=== PATIENT | female | born 1970 | race Caucasian/White ===

== ENCOUNTER 2017-04-14 09:35 | Inpatient (IN) ==
[2017-04-14] MEDS ORDERED: DILAUDID ONE (18:24)
[2017-04-14] MEDS: NICODERM PATCH TD SCH (18:29)
[2017-04-14 19:42] LABS: MANUAL DIFF NEEDED? NO
[2017-04-14 19:45] LABS: BASO% 0.3 % (0.0-0.8); EOS# 0.05 X1000 (0.0-0.7); EOS% 1.3 % (0.0-10.0); HEMATOCRIT 40.5 % (37.0-47.0); HEMOGLOBIN 13.4 g/dL (12.0-16.0); LYMPH# 0.64 X1000 (1.2-3.4); LYMPH% 16.6 % (20.5-51.1); MCH 29.9 PG (27-31); MCHC 33.1 g/dL (33-37); MCV 90.4 FL (81-99); MONO# 0.44 X1000 (0.11-0.59); MONO% 11.4 % (1.7-9.3); MPV 10.6 FL (7.4-10.4); NEUT% 70.4 % (42.2-75.2); PLT 124 X1000 (130-400); RBC 4.48 XMIL (4.2-5.4)
[2017-04-14 19:53] LABS: INR 0.98; PROTIME 10.3 Seconds (9.2-11.7); PTT 28.7 Seconds (22.0-36.0)
[2017-04-14 20:10] LABS: AGAP 12; ALBUMIN 3.6 g/dL (3.5-5.0); ALKALINE PHOSPHATASE 54 U/L (32-104); BUN 14 mg/dL (8-22); CALCIUM 7.8 mg/dL (8.8-10.2); CHLORIDE 107 mmol/L (98-107); COSMO 280; GOT 18 U/L (10-30); GPT 11 U/L (10-36); POTASSIUM 3.4 mmol/L (3.5-5.1); SODIUM 141 mmol/L (136-145); TCO2 22 mmol/L (25-35); TOTAL BILIRUBIN 0.18 mg/dL (0.20-1.00); TOTAL PROTEIN 6.2 g/dL (6.3-8.3)
[2017-04-14] MEDS ORDERED: ZOFRAN IV PRN (20:33)
[2017-04-14] MEDS ORDERED: PROTONIX IV SCH (21:00)
[2017-04-14] MEDS ORDERED: SODIUM CHLORIDE 0.9% INJ SCH (21:00)
[2017-04-14] MEDS ORDERED: KLOR-CON PO ONE (21:27)
[2017-04-14] MEDS ORDERED: DUONEB (A & A) INH PRN (21:30)
[2017-04-14] MEDS: NS 1,000 ML IV SCH (22:04)
[2017-04-14] MEDS: DILAUDID IV PRN (22:17)
[2017-04-14] MEDS: LYRICA PO SCH (22:17)
[2017-04-14] MEDS: SUBOXONE 2 MG/0.5 MG SL SCH (22:17)
[2017-04-14] MEDS: XANAX PO PRN (22:44)
[2017-04-14] MEDS: PROTONIX 80 MG in NS 80 ML IV SCH (22:44)
[2017-04-15] MEDS: DILAUDID IV PRN ×3 (05:20→20:26)
[2017-04-15 06:30] LABS: MANUAL DIFF NEEDED? NO
[2017-04-15 06:32] LABS: BASO% 0.2 % (0.0-0.8); EOS# 0.05 X1000 (0.0-0.7); EOS% 1.1 % (0.0-10.0); HEMATOCRIT 42.3 % (37.0-47.0); HEMOGLOBIN 13.9 g/dL (12.0-16.0); LYMPH# 0.61 X1000 (1.2-3.4); LYMPH% 13.9 % (20.5-51.1); MCH 29.6 PG (27-31); MCHC 32.9 g/dL (33-37); MCV 90.2 FL (81-99); MONO# 0.54 X1000 (0.11-0.59); MONO% 12.3 % (1.7-9.3); MPV 10.7 FL (7.4-10.4); NEUT% 72.5 % (42.2-75.2); PLT 116 X1000 (130-400); RBC 4.69 XMIL (4.2-5.4)
[2017-04-15 08:05] LABS: AGAP 14; BUN 8 mg/dL (8-22); CALCIUM 8.4 mg/dL (8.8-10.2); CHLORIDE 107 mmol/L (98-107); COSMO 277; MAGNESIUM 1.6 mg/dL (1.5-2.7); POTASSIUM 4.3 mmol/L (3.5-5.1); SODIUM 140 mmol/L (136-145); TCO2 19 mmol/L (25-35)
[2017-04-15] MEDS ORDERED: DIPRIVAN 1% ONE (08:57)
[2017-04-15] MEDS ORDERED: ROBINUL ONE (08:58)
[2017-04-15] MEDS ORDERED: XYLOCAINE-MPF 2% ONE (08:58)
[2017-04-15] MEDS: NICODERM PATCH TD SCH (10:18)
[2017-04-15] MEDS: SUBOXONE 2 MG/0.5 MG SL SCH ×2 (10:18→20:26)
[2017-04-15] MEDS: LYRICA PO SCH ×2 (10:19→20:26)
[2017-04-15] MEDS: MARINOL PO SCH (10:19)
[2017-04-15] MEDS: XANAX PO PRN ×2 (11:33→20:26)
[2017-04-15] MEDS: PROTONIX 80 MG in NS 80 ML IV SCH ×3 (12:44→21:12)
[2017-04-15] MEDS: NS 1,000 ML IV SCH (13:00)
[2017-04-15] MEDS: PATIENT'S OWN MED PO SCH (18:27)
[2017-04-16] MEDS: NS 1,000 ML IV SCH (02:29)
[2017-04-16] MEDS: DILAUDID IV PRN ×3 (04:38→08:57)
[2017-04-16 06:50] LABS: MANUAL DIFF NEEDED? NO
[2017-04-16 06:57] LABS: BASO% 0.2 % (0.0-0.8); EOS# 0.05 X1000 (0.0-0.7); EOS% 1.2 % (0.0-10.0); HEMATOCRIT 40.3 % (37.0-47.0); HEMOGLOBIN 13.1 g/dL (12.0-16.0); LYMPH# 0.74 X1000 (1.2-3.4); LYMPH% 17.7 % (20.5-51.1); MCH 29.4 PG (27-31); MCHC 32.5 g/dL (33-37); MCV 90.4 FL (81-99); MONO# 0.61 X1000 (0.11-0.59); MONO% 14.6 % (1.7-9.3); MPV 10.8 FL (7.4-10.4); NEUT% 66.3 % (42.2-75.2); PLT 113 X1000 (130-400); RBC 4.46 XMIL (4.2-5.4)
[2017-04-16 07:16] LABS: AGAP 11; BUN 7 mg/dL (8-22); CALCIUM 8.1 mg/dL (8.8-10.2); CHLORIDE 107 mmol/L (98-107); COSMO 277; SODIUM 140 mmol/L (136-145); TCO2 22 mmol/L (25-35)
[2017-04-16 07:29] VITALS: BP 109/73
[2017-04-16] MEDS ORDERED: NORCO-7.5 PO PRN (07:58)
[2017-04-16] MEDS: MARINOL PO SCH (08:57)
[2017-04-16] MEDS: LYRICA PO SCH (08:58)
[2017-04-16] MEDS: NICODERM PATCH TD SCH (08:58)
[2017-04-16] MEDS: PROTONIX 80 MG in NS 80 ML IV SCH (09:04)
[2017-04-16] MEDS: PATIENT'S OWN MED PO SCH (09:04)
[2017-04-16] MEDS: XANAX PO PRN (09:05)
[2017-04-16] MEDS ORDERED: PERCOCET-5 PO PRN (11:45)
[2017-04-16] MEDS ORDERED: XANAX PO SCH (21:00)
== END 2017-04-16 14:25 | disposition home or self-care (01) ==
LOC: DIRADM 09:35 → 3N 17:43
PROVIDERS: ATTEND Internal Medicine

== ENCOUNTER 2018-09-03 15:04 | Inpatient (IN) ==
[2018-09-03] MEDS ORDERED: NORCO-10 PO PRN (18:12)
[2018-09-03] MEDS ORDERED: ZOFRAN IV PRN ×2 (18:13)
[2018-09-03] MEDS ORDERED: NS 1,000 ML IV ONE (18:13)
[2018-09-03] MEDS: DURAGESIC 50 MICROGM/HR PATCH TD SCH (18:47)
[2018-09-03] MEDS ORDERED: PERCOCET-10 PO PRN (18:54)
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
[2018-09-03 19:05] LABS: BASO# 0.03 X1000 (0.0-0.2); BASO% 0.2 % (0.0-0.8); EOS# 0.23 X1000 (0.0-0.7); EOS% 1.5 % (0.0-10.0); HEMATOCRIT 40.6 % (37.0-47.0); HEMOGLOBIN 13.1 g/dL (12.0-16.0); IMM GRAN# 0.06 X1000 (0.0-0.04); IMM GRAN% 0.4 % (0.0-0.5); LYMPH# 1.35 X1000 (1.2-3.4); LYMPH% 8.9 % (20.5-51.1); MCH 28.9 PG (27-31); MCHC 32.3 g/dL (33-37); MCV 89.6 FL (81-99); MONO% 9.3 % (1.7-9.3); MPV 9.4 FL (7.4-10.4); NEUT# 12.05 X1000 (1.4-6.5); NEUT% 79.7 % (42.2-75.2); PLT 245 X1000 (130-400); RBC 4.53 XMIL (4.2-5.4); WBC 15.12 X1000 (4.8-10.8)
[2018-09-03 19:09] LABS: ALB/GLOB RATIO 1.1; ALBUMIN 3.5 g/dL (3.5-5.0); CALCIUM 8.1 mg/dL (8.8-10.2); CREATININE 1.4 mg/dL (0.5-0.9); MAGNESIUM 1.8 mg/dL (1.5-2.7); PHOSPHORUS 3.9 mg/dL (2.7-4.5); TOTAL BILIRUBIN 0.23 mg/dL (0.20-1.00); TOTAL PROTEIN 6.7 g/dL (6.3-8.3)
[2018-09-03 21:18] LABS: INR 0.99; PROTIME 13.8 Seconds (11.0-16.0)
[2018-09-03 21:35] LABS: FREE T4 0.98 ng/dL (0.93-1.70)
[2018-09-03 21:45] LABS: TSH 7.77 uIUmL (0.27-4.20)
[2018-09-03] MEDS: LYRICA PO SCH (22:22)
[2018-09-04] MEDS: PERCOCET-10 PO PRN ×5 (02:41→22:54)
[2018-09-04 06:01] LABS: URINE SOURCE CLEAN CATCH
[2018-09-04 06:09] LABS: BILIRUBIN URINE NEGATIVE (NEGATIVE); BLOOD URINE NEGATIVE (NEGATIVE); COLOR YELLOW; GLUCOSE URINE NEGATIVE (NEGATIVE); KETONE URINE NEGATIVE (NEGATIVE); LEUKOCYTES URINE MODERATE (NEGATIVE); NITRITE URINE NEGATIVE (NEGATIVE); PROTEIN URINE 100 mg/dL (NEGATIVE); SP GRAVITY URINE 1.016; TURBIDITY URINE CLEAR (CLEAR); UR EPITHELIAL CELLS <10 /HPF (<10); URINE BACTERIA NEGATIVE /HPF; URINE RBC <10 /HPF (<10); URINE WBC TNTC /HPF (<10); UROBILINOGEN URINE NORMAL (NORMAL)
[2018-09-04 06:31] LABS: PROTEIN CREAT RATIO 0.9; UR CREAT RANDOM 134.7 mg/dL (11-20); UR PROT RANDOM 115.5 mg/dL
[2018-09-04] MEDS: PROTONIX PO SCH (06:35)
[2018-09-04 07:36] LABS: BASO# 0.05 X1000 (0.0-0.2); BASO% 0.2 % (0.0-0.8); EOS# 0.36 X1000 (0.0-0.7); EOS% 1.7 % (0.0-10.0); HEMATOCRIT 38.2 % (37.0-47.0); HEMOGLOBIN 12.3 g/dL (12.0-16.0); IMM GRAN# 0.12 X1000 (0.0-0.04); IMM GRAN% 0.6 % (0.0-0.5); LYMPH# 2.31 X1000 (1.2-3.4); LYMPH% 10.9 % (20.5-51.1); MCHC 32.2 g/dL (33-37); MCV 90.1 FL (81-99); MONO# 2.36 X1000 (0.11-0.59); MONO% 11.1 % (1.7-9.3); MPV 9.3 FL (7.4-10.4); NEUT# 16.02 X1000 (1.4-6.5); NEUT% 75.5 % (42.2-75.2); PLT 254 X1000 (130-400); RBC 4.24 XMIL (4.2-5.4); WBC 21.22 X1000 (4.8-10.8)
[2018-09-04 07:51] LABS: ALB/GLOB RATIO 1.4; ALBUMIN 3.6 g/dL (3.5-5.0); CALCIUM 7.5 mg/dL (8.8-10.2); CREATININE 1.4 mg/dL (0.5-0.9); TOTAL BILIRUBIN 0.19 mg/dL (0.20-1.00); TOTAL PROTEIN 6.2 g/dL (6.3-8.3)
[2018-09-04 08:06] LABS: BANDS 4 % (0-1); LYMPHS 8 % (21-51); MONO 8 % (1-9); SEGS 76 % (42-75)
[2018-09-04] MEDS: LYRICA PO SCH ×2 (08:18→22:09)
[2018-09-04] MEDS: NICODERM PATCH TD SCH (08:19)
[2018-09-04 08:44] LABS: ALLEN TEST NO; BE -16.2 mmoll (-3.0-3.0); BLOOD TYPE ARTERIAL; HCO3-(ACT) 12.3 mmoll (20.0-26.0); METHB 1.2 % (0.0-1.5); O2(CT) 15.9 mL/dL (15.0-23.0); O2HB 95.3 % (95.0-99.0); PCO2(98.6) 29 mmHg (35-45); PO2(98.6) 95 mmHg (60-100); SAMPLE BLOOD; SAO2 98.2 % (95.0-100.0); THB 11.8 g/dL (11.5-17.4)
[2018-09-04 08:45] LABS: MODALITY ROOM AIR
--- NOTE | 2018-09-04 08:50 | Diag Imaging Result Doc PS360 ---
EXAM: CHEST-2 VIEWS - 09/04/2018 HISTORY: dyspnea TECHNIQUE: Chest two views COMPARISON: 08/23/2018 FINDINGS: Heart size is normal. There are mild COPD/emphysematous changes. There are symmetrical nipple shadow artifacts over the lung bases on the PA view which are stable. There is no acute consolidation, vascular congestion, pleural effusion, or pneumothorax identified. IMPRESSION: Mild COPD/emphysematous changes. No acute changes. Electronically signed by Rex Dacosta 09/04/2018 8:48 AM
[2018-09-04 08:51] LABS: pH(98.6) 7.18 (7.35-7.45)
[2018-09-04] MEDS ORDERED: SODIUM BICARBONATE 8.4% IV ONE (10:15)
[2018-09-04] MEDS ORDERED: 1/2 NS 1,000 ML IV SCH (10:30)
[2018-09-04] MEDS ORDERED: NS 1,000 ML IV SCH (11:15)
[2018-09-04] MEDS: SODIUM BICARBONATE 8.4% 150 MEQ in D5W 1,000 ML IV SCH (13:34)
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
[2018-09-04] MEDS: ZYVOX 600 MG/D5W 600 MG/300 ML IVPB IV SCH (18:36)
[2018-09-04] MEDS: DURAGESIC 50 MICROGM/HR PATCH TD SCH (18:53)
[2018-09-04] MEDS ORDERED: SODIUM BICARBONATE PO SCH (21:00)
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
[2018-09-05] MEDS: PERCOCET-10 PO PRN ×5 (03:07→21:36)
[2018-09-05] MEDS: PROTONIX PO SCH ×2 (03:16→08:01)
[2018-09-05 05:06] LABS: ALLEN TEST YES; BE -8.5 mmoll (-3.0-3.0); BLOOD TYPE ARTERIAL; HCO3-(ACT) 18.2 mmoll (20.0-26.0); METHB 1.2 % (0.0-1.5); O2(CT) 16.3 mL/dL (15.0-23.0); PCO2(98.6) 36 mmHg (35-45); PO2(98.6) 90 mmHg (60-100); SAMPLE BLOOD; SAO2 97.9 % (95.0-100.0); THB 12.1 g/dL (11.5-17.4); pH(98.6) 7.29 (7.35-7.45)
[2018-09-05 05:07] LABS: MODALITY ROOM AIR
[2018-09-05] MEDS: SODIUM BICARBONATE 8.4% 150 MEQ in D5W 1,000 ML IV SCH (06:21)
[2018-09-05 07:19] LABS: BASO# 0.02 X1000 (0.0-0.2); BASO% 0.1 % (0.0-0.8); EOS% 0.7 % (0.0-10.0); HEMATOCRIT 33.4 % (37.0-47.0); HEMOGLOBIN 10.9 g/dL (12.0-16.0); IMM GRAN# 0.04 X1000 (0.0-0.04); IMM GRAN% 0.3 % (0.0-0.5); LYMPH# 0.85 X1000 (1.2-3.4); LYMPH% 5.7 % (20.5-51.1); MCH 28.4 PG (27-31); MCHC 32.6 g/dL (33-37); MONO# 1.35 X1000 (0.11-0.59); MONO% 9.1 % (1.7-9.3); MPV 9.5 FL (7.4-10.4); NEUT# 12.49 X1000 (1.4-6.5); NEUT% 84.1 % (42.2-75.2); PLT 197 X1000 (130-400); RBC 3.84 XMIL (4.2-5.4); RDW 14.6 % (11.5-14.5); WBC 14.85 X1000 (4.8-10.8)
[2018-09-05 07:45] LABS: AGAP 13; ALB/GLOB RATIO 1.1; ALBUMIN 3.3 g/dL (3.5-5.0); ALKALINE PHOSPHATASE 69 U/L (32-104); BUN 16 mg/dL (8-22); C REACTIVE PROT QUANT 3.88 mg/L (0.00-5.00); CALCIUM 7.8 mg/dL (8.8-10.2); CHLORIDE 105 mmol/L (98-107); COSMO 275; CREATININE 1.2 mg/dL (0.5-0.9); ESTIMATED GFR 48; GLUCOSE 91 mg/dL (70-104); GOT 17 U/L (10-30); GPT 15 U/L (10-36); POTASSIUM 3.3 mmol/L (3.5-5.1); SODIUM 137 mmol/L (136-145); TCO2 19 mmol/L (25-35); TOTAL BILIRUBIN < 0.15 mg/dL (0.20-1.00); TOTAL PROTEIN 6.2 g/dL (6.3-8.3)
[2018-09-05] MEDS: NICODERM PATCH TD SCH (08:19)
[2018-09-05] MEDS: ZYVOX 600 MG/D5W 600 MG/300 ML IVPB IV SCH ×2 (08:19→18:23)
[2018-09-05] MEDS: LYRICA PO SCH ×2 (08:19→21:35)
[2018-09-05] MEDS ORDERED: MAGNESIUM SULFATE 2 GM/S.W.I. 2 GM/50 ML IVPB IV ONE (12:45)
[2018-09-05] MEDS ORDERED: KLOR-CON PO ONE (12:46)
--- NOTE | 2018-09-05 13:27 | Diag Imaging Result Doc PS360 ---
EXAM: BA SWALLOW W/VIDEO SPEECH THER 09/05/2018 HISTORY: Odynophagia, n/v TECHNIQUE: 104 images 19 mGy, 26 seconds fluoroscopy time. COMMENT: The patient was able to swallow barium with a single swallow demonstrating premature contraction of the cricopharyngeus. There is no evidence of aspiration. IMPRESSION: Episodic cricopharyngeal achalasia. Electronically signed by Filemon Robert 09/05/2018 1:24 PM
[2018-09-05] MEDS ORDERED: MORPHINE IV ONE (14:18)
[2018-09-05] MEDS: POTASSIUM CHLORIDE 40 MEQ in NS 1,000 ML IV SCH (14:33)
--- NOTE | 2018-09-05 14:45 | PROGRESS NOTE ---
DATE: 09/05/2018 SUBJECTIVE: Patient still complains of episodes of nausea and vomiting. She has had diarrhea. She has had a modified barium swallow for complaints of dysphagia/odynophagia. Findings showed episodic cricopharyngeal achalasia with no evidence of aspiration. Patient's main complaint at present time is right flank pain. OBJECTIVE: Vital signs: Temperature 98.3 degrees, pulse 100, respirations 20, and blood pressure 138/93. General: The patient is awake, alert in no acute distress. Abdomen: Soft with tenderness on palpation. Slight firmness noted to the abdomen. LABORATORY: Hematology: WBC 14.85, hemoglobin 10.9, hematocrit 33.4, MCV 87 and platelets 197,000. Chemistry: Sodium 137, potassium 3.3, chloride 105, CO2 19, BUN 16 creatinine 1.2, glucose 91, total bilirubin less than 0.15, AST 17, ALT 15, alkaline phosphatase 69. C-reactive protein 3.88. ASSESSMENT AND PLAN: 1. Nausea and vomiting. 2. Diarrhea. 3. Dysphagia/odynophagia with barium swallow showing episodic cricopharyngeal achalasia. 4. History of carcinoid tumor. 5. Abdominal pain. PLAN: Continue proton pump inhibitor. Follow anti-reflux measures. Patient's stool was negative for C. difficile toxin. I will discuss this case with Dr. Escalante, and further plans will be made as needed. Dictated by LEE ANN Vásquez for Braeden Escalante MD cc: LEE ANN Crockett MD
[2018-09-05] MEDS: MYLICON PO PRN ×2 (16:34→21:35)
[2018-09-05] MEDS: MERREM 1 GM in NS 50 ML IV SCH (17:39)
--- NOTE | 2018-09-05 17:51 | PROGRESS NOTE ---
DATE: 09/05/2018 SUBJECTIVE: This patient is still feeling weak, but she looks better compared with yesterday. She is oriented x3. She is still having diarrhea, but it is better. Gastroenterology Department on board. I have placed this patient on a bicarbonate drip because of her severe acidosis. She is still acidotic, and the bicarbonate is better, increased from 8 to 11 and now it is 19. I will continue for now with the same management. Tomorrow we will re-evaluate this patient. OBJECTIVE: Vital Signs: Temperature 98.3 degrees, pulse 95, respiratory rate 20, blood pressure 127/80, oxygen saturation 100% on room air. HEENT: Head normocephalic. No trauma. PERRLA. Neck: Supple. No JVD. No masses. Central trachea. Chest: Clear to auscultation. No wheezing. No rales. Abdomen: Soft. Mild generalized tenderness to palpation. Her abdomen is a little bit firm, but nondistended. Extremities: No edema. No clubbing. No cyanosis. Neurological: The patient is alert and oriented x3. She does have generalized weakness. DIAGNOSTIC DATA: WBC 14.8, hemoglobin 10.9, hematocrit 33.4, platelets 197, 000. Sodium 137, potassium 3.3, chloride 105, bicarbonate 19, BUN 16, creatinine 1.2, glucose 91. Magnesium 1.4. Albumin 3.3. ASSESSMENT AND PLAN: 1. Anion gap metabolic acidosis. Her pH was low at 7.18 and low bicarbonate. Now this looks much better. I will continue with the bicarbonate drip, and tomorrow, I will re-evaluate this patient again. Likely, the acidosis is due to her severe chronic diarrhea, which in turn will decrease the potassium level. 2. Leukocytosis. WBC is better compared with yesterday, decreased from 21 to 14. I do have a gram-negative wayne in the urine and a coagulase-negative Staphylococcus in blood so I will continue with linezolid and I will add meropenem to her medications. 3. History of carcinoid tumor with liver involvement. Dr. Miller has been consulted. We will continue controlling her pain. She still has diarrhea. 4. Severe diarrhea. This is likely the cause of her acidosis. She feels a little bit better today. Gastroenterology on board. 5. Dysphagia status post a modified barium swallow. Impression: I will wait for Gastroenterology's recommendations. 6. Hypomagnesemia. I will replace the magnesium. 7. Urinary tract infection with a positive culture that showed gram-negative wayne. I have started this patient on meropenem. She is allergic to penicillins. 8. Normocytic anemia. For now, will monitor. 9. Hypokalemia. I will replace the potassium. 10. Acute kidney injury. This is getting better. Creatinine decreased from 1.4 to 1.2. BUN is getting better also. We will continue with IV fluids. cc: Vikas Flores MD MTDD
[2018-09-06] MEDS: MERREM 1 GM in NS 50 ML IV SCH ×3 (00:46→17:06)
[2018-09-06] MEDS: PERCOCET-10 PO PRN ×6 (01:36→21:50)
[2018-09-06] MEDS: SODIUM BICARBONATE 8.4% 150 MEQ in D5W 1,000 ML IV SCH ×2 (01:37→17:51)
[2018-09-06 05:00] LABS: ALLEN TEST YES; BE -4.7 mmoll (-3.0-3.0); BLOOD TYPE ARTERIAL; HCO3-(ACT) 21.2 mmoll (20.0-26.0); METHB 1.6 % (0.0-1.5); O2(CT) 14.1 mL/dL (15.0-23.0); O2HB 94.6 % (95.0-99.0); PCO2(98.6) 41 mmHg (35-45); PO2(98.6) 85 mmHg (60-100); SAMPLE BLOOD; SAO2 97.6 % (95.0-100.0); THB 10.5 g/dL (11.5-17.4); pH(98.6) 7.32 (7.35-7.45)
[2018-09-06 05:01] LABS: MODALITY ROOM AIR
[2018-09-06] MEDS: MYLICON PO PRN ×2 (05:54→13:37)
[2018-09-06] MEDS: ZYVOX 600 MG/D5W 600 MG/300 ML IVPB IV SCH ×2 (05:56→17:52)
[2018-09-06] MEDS: PROTONIX PO SCH (06:02)
[2018-09-06 07:27] LABS: BASO# 0.01 X1000 (0.0-0.2); BASO% 0.1 % (0.0-0.8); EOS# 0.14 X1000 (0.0-0.7); EOS% 1.1 % (0.0-10.0); HEMATOCRIT 34.2 % (37.0-47.0); HEMOGLOBIN 11.1 g/dL (12.0-16.0); IMM GRAN# 0.04 X1000 (0.0-0.04); IMM GRAN% 0.3 % (0.0-0.5); LYMPH# 0.81 X1000 (1.2-3.4); LYMPH% 6.5 % (20.5-51.1); MCH 28.7 PG (27-31); MCHC 32.5 g/dL (33-37); MCV 88.4 FL (81-99); MONO# 1.24 X1000 (0.11-0.59); MONO% 9.9 % (1.7-9.3); MPV 10.5 FL (7.4-10.4); NEUT# 10.26 X1000 (1.4-6.5); NEUT% 82.1 % (42.2-75.2); PLT 166 X1000 (130-400); RBC 3.87 XMIL (4.2-5.4); RDW 14.5 % (11.5-14.5)
[2018-09-06 07:33] LABS: AGAP 12; ALBUMIN 3.1 g/dL (3.5-5.0); ALKALINE PHOSPHATASE 76 U/L (32-104); BUN 15 mg/dL (8-22); CALCIUM 7.9 mg/dL (8.8-10.2); CHLORIDE 105 mmol/L (98-107); COSMO 278; CREATININE 1.1 mg/dL (0.5-0.9); ESTIMATED GFR 53; GLUCOSE 151 mg/dL (70-104); GOT 13 U/L (10-30); GPT 13 U/L (10-36); POTASSIUM 3.1 mmol/L (3.5-5.1); SODIUM 137 mmol/L (136-145); TCO2 20 mmol/L (25-35); TOTAL BILIRUBIN < 0.15 mg/dL (0.20-1.00); TOTAL PROTEIN 6.2 g/dL (6.3-8.3)
[2018-09-06] MEDS: NICODERM PATCH TD SCH (09:39)
[2018-09-06] MEDS: LYRICA PO SCH ×2 (09:39→20:31)
--- NOTE | 2018-09-06 15:10 | PROGRESS NOTE ---
DATE: 09/06/2018 SUBJECTIVE: Ms. Bolivar was admitted on 09/03/2018. She is followed by Dr. Anson Miller. Complained of abdominal and throat pains. A 48-year-old female with a known history of metastatic carcinoid tumor with liver involvement, followed by Dr. Anson Miller. She went to [facility] with 3 days of right upper quadrant abdominal pain and feeling fullness in her throat when she swallows. She started to having some nausea and vomiting and chronic diarrhea. Denied any fever. No chills. She has had a bit of worsening of cough over the past 2 or 3 weeks. Cough described as wet. CT of the abdomen was done at [facility]. She feels much better, sitting up in her bed and eating some breakfast. OBJECTIVE: Temperature is 97.9, pulse 100, respirations 20, blood pressure 105/69. Pupils are equal and round. Lungs are clear in all lung rendon. Cardiovascular: Regular rate and rhythm without murmur or S3. Abdomen is soft. Skin is warm and dry. Urine output is 2800 mL. ASSESSMENT AND PLAN: 1. Increased anion gap metabolic acidosis. The pH was 7.18 and low bicarbonate, looks much better, and she is on a bicarbonate drip. Likely acidosis due to severe chronic diarrhea which also decreased her potassium level. 2. Leukocytosis. White blood cell count is better. Decreased from 21,000 to 1400. Gram-negative wayne growing in the urine. Coagulase negative staphylococcus in the blood. We will continue linezolid and meropenem. 3. Carcinoid tumor with liver involvement. Dr. Miller is consulted. Continue controlling pain. 4. Severe diarrhea, likely cause of acidosis. Feels a little better today. 5. Dysphagia. Status post modified barium swallow. Impression is episodic achalasia. GI is following. 6. Hypomagnesemia. Replace magnesium. 7. Urinary tract infection with positive culture that showed gram-negative wayne. The patient is on meropenem. She is allergic to penicillins. 8. Normocytic anemia. 9. Hypokalemia. Supplement her potassium. 10.Acute kidney injury. We will continue to follow. cc: Claudio Jones MD
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
[2018-09-06] MEDS: POTASSIUM CHLORIDE 40 MEQ in NS 1,000 ML IV SCH (17:51)
[2018-09-06] MEDS: DURAGESIC 50 MICROGM/HR PATCH TD SCH (17:52)
--- NOTE | 2018-09-06 18:08 | PROGRESS NOTE ---
DATE: 09/06/2018 SUBJECTIVE: Patient is more awake today. She states she is feeling some better. She has not had any vomiting today. She has tolerated her diet so far today. She had a barium swallow on 09/05/2018 that showed episodic cricopharyngeal achalasia. There was no evidence of aspiration. Patient has been seen by oncology who has followed her for her metastatic carcinoid tumor. OBJECTIVE: Vital Signs: Temperature 98.3 degrees, pulse 96, blood pressure 124/72. General: Patient is awake, alert, in no acute distress. Abdomen: Softer today. Positive bowel sounds. Nontender. LABORATORY: Hematology. WBC 12.50, hemoglobin 11.1, hematocrit 34.2, MCV 88.4. Chemistry. Sodium 137, potassium 3.1, chloride 105, CO2 of 20, BUN 15, creatinine 1.1, glucose 151. ASSESSMENT AND PLAN: 1. Leukocytosis on antibiotics. 2. Dysphagia. Barium swallow showed episodic achalasia. Continue PPI. Will discuss possible EGD and possible dilation as an out patient. Recommend she follow up with us as an outpatient. 3. 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 Following with Dr. Miller. Continue current management. 4. Urinary tract infection on antibiotics. 5. We will continue to follow and further plans will be made according to her progress. Her symptoms seemed to have improved some today. Recommend to continue PPI. Will follow up with her as an outpatient. She may require EGD with possible dilation. I have discussed this case with Dr. Escalante. Dictated by LEE ANN Vásquez for Braeden Escalante MD cc: LEE ANN Crockett MD
[2018-09-07] MEDS: MERREM 1 GM in NS 50 ML IV SCH ×3 (01:47→17:33)
[2018-09-07] MEDS: PERCOCET-10 PO PRN ×6 (01:47→22:55)
[2018-09-07] MEDS: PROTONIX PO SCH (06:05)
[2018-09-07] MEDS: ZYVOX 600 MG/D5W 600 MG/300 ML IVPB IV SCH ×2 (06:05→17:37)
[2018-09-07] MEDS ORDERED: NS 500 ML ONE (08:13)
[2018-09-07] MEDS: LYRICA PO SCH ×2 (09:00→20:53)
[2018-09-07] MEDS: MYLICON PO PRN ×2 (10:42→18:49)
[2018-09-07] MEDS: NICODERM PATCH TD SCH (10:43)
[2018-09-07] MEDS: DURAGESIC 50 MICROGM/HR PATCH TD SCH (12:06)
[2018-09-07] MEDS: SODIUM BICARBONATE 8.4% 150 MEQ in D5W 1,000 ML IV SCH (13:41)
[2018-09-07] MEDS: POTASSIUM CHLORIDE 40 MEQ in NS 1,000 ML IV SCH (13:47)
--- NOTE | 2018-09-07 14:01 | PROGRESS NOTE ---
DATE: 09/07/2018 SUBJECTIVE: Patient was currently having an IV restarted at the time of my visit. She states she has had some abdominal pain today. No reported vomiting. OBJECTIVE: Vital Signs: Temperature 98.1 degrees, pulse 99, respirations 16, blood pressure 151/85. General: Patient was awake, alert, in no acute distress. She was having an IV restarted. LABORATORY: Hematology: WBC 12.50, hemoglobin 11.1, hematocrit 34.2, MCV 88.4 , platelet 166. Chemistry: Sodium 137, potassium 3.1, chloride 105, CO2 20. BUN 15, creatinine 1.1,, glucose 151. Total bilirubin less than 0.15, AST 13, ALT 13, alkaline phosphatase 76. ASSESSMENT: 1. Leukocytosis, improving. Continue antibiotics. 2. 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 Miller. I believe they have ordered an octreotide scan. 3. Diarrhea, which seems to have improved. 4. Dysphagia. Patient had modified barium swallow that showed episodic achalasia. Continue proton pump inhibitor. Recommend she follow up with us at the office, and she may need esophagogastroduodenoscopy with possible dilation. 5. Urinary tract infection on antibiotics. PLAN: Continue current management. Continue current medications. Continue PPI and follow strict anti-reflux measures. Recommend she follow up with us as an outpatient, and she may need EGD with possible dilation. Further plans to be made according to her progress. I have discussed this case with Dr. Escalante. Dictated by LEE ANN Vásquez for Braeden Escalante MD cc: LEE ANN Crockett MD [facility]
--- NOTE | 2018-09-07 16:31 | PROGRESS NOTE ---
DATE: 09/07/2018 SUBJECTIVE: Ms. Bolivar states she feels pretty good today. They did notify me that they found another 1 of her pain patches that had appeared to be taken off. I think this is the second or third time this has happened this hospitalization. She reports that she is comfortable though at this time. She is eating a little better. OBJECTIVE: Vital signs: Temperature 98.1 degrees, pulse 99, respirations 16, blood pressure 151/85. HEENT: Pupils are equal and round. Lungs: Clear in all lung rendon. Cardiovascular: Regular rhythm and rate without murmur or S3. Abdomen: Soft. Skin: Warm and dry. Urine output 3200 to 3300 mL. ASSESSMENT AND PLAN: 1. Leukocytosis, improving. Continue antibiotics. 2. 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 Followed by Dr. Miller. I believe they have ordered an octreotide scan. 3. Diarrhea which is improving. 4. Dysphagia. The patient had a modified barium swallow that showed episodic achalasia. Continue proton pump inhibitors. Encourage her to chew her food up well. Encourage p.o. intake. Recommend she get follow up in the office. May need an EGD and possible dilatation as an outpatient. 5. Urinary tract infection. Continue current antibiotics. Urine grew out E. coli which is sensitive to everything. 6. Review of her orders. She is on D5 water with bicarbonate 150 mL that is running at 75 mL. She is on a fentanyl patch which is 50 mcg to 72 hours. Getting meropenem 1 g q.8 hours, nicotine patch 21 mg a day, oxycodone 10 mg q.4 hours p.r.n., Protonix 40 mg a day, Lyrica 300 mg b.i.d., simethicone chewable 80 mg p.o. 4 times a day p.r.n., linezolid 600 mg IV q.12. Continue present treatment. cc: Claudio Jones MD
[2018-09-08] MEDS: SODIUM BICARBONATE 8.4% 150 MEQ in D5W 1,000 ML IV SCH ×2 (00:58→18:23)
[2018-09-08] MEDS: MERREM 1 GM in NS 50 ML IV SCH ×4 (02:00→23:53)
[2018-09-08] MEDS: PERCOCET-10 PO PRN ×6 (02:57→23:53)
[2018-09-08] MEDS: ZYVOX 600 MG/D5W 600 MG/300 ML IVPB IV SCH ×2 (06:05→18:40)
[2018-09-08] MEDS: PROTONIX PO SCH (06:05)
--- NOTE | 2018-09-08 09:57 | Diag Imaging Result Doc PS360 ---
OCTREOSCAN MULTI DAY W/SPECT - 09/05/2018 INDICATION: Carcinoid tumor with liver mets TECHNIQUE: 5.8 mCi of Octreoscan was used. Whole body imaging and SPECT imaging was performed. COMPARISON: None FINDINGS: There is stable abnormal retroperitoneal uptake in the periaortic and pancreatic head region. There is stable abnormal uptake in the left supraclavicular fossa. This is concerning for uptake in supraclavicular lymph node nodes. There is some stable subtle abnormal masslike activity in the inferior right lobe of the liver as well as the liver dome.. IMPRESSION: Stable metastatic disease in the liver, retroperitoneum and left supraclavicular fossa. Electronically signed by Robert Yee 09/08/2018 9:55 AM
[2018-09-08] MEDS: LYRICA PO SCH ×3 (10:10→21:34)
[2018-09-08] MEDS: NICODERM PATCH TD SCH (10:11)
[2018-09-08] MEDS: MYLICON PO PRN (10:50)
[2018-09-08] MEDS: MIRALAX PO SCH (15:54)
--- NOTE | 2018-09-08 17:01 | PROGRESS NOTE ---
DATE: 09/08/2018 SUBJECTIVE: Ms Bolivar is feeling pretty good. She got her octreotide scan done, and she is waiting to see what Dr. Miller wants to do. OBJECTIVE: Vital signs: Temperature 97.9 degrees, pulse 102, respirations 16, blood pressure 129/79. HEENT: Pupils are equal and round. Lungs: Clear in all lung rendon. Cardiovascular: Regular rhythm and rate without murmur or S3. Output: Urine output is 2500 mL. ASSESSMENT AND PLAN: 1. Leukocytosis, improving. Continue antibiotics. 2. Carcinoid tumor, metastatic to liver. Followed by Dr. Miller. She had an octreotide study. I think that was done on the . Stable metastatic disease of the liver, retroperitoneum, and left supraclavicular fossa. 3. Diarrhea, improving. 4. Dysphagia. Patient had a modified barium swallow that showed episodic achalasia. She is on proton pump inhibitor. She is eating a little bit. Appetite is not great. They are contemplating doing the EGD as an outpatient. 5. Urinary tract infection. Continue present antibiotics. Urine grew Escherichia coli which is sensitive to everything. 6. Review of her orders. Discussed with the team. She may be able to be discharged tomorrow. Dr. Escalante is following. He wants to continue PPI, following strict anti-reflux measures. Follow up as an outpatient. May need an EGD with possible esophageal dilatation as an outpatient. cc: Claudio Jones MD
[2018-09-08] MEDS: POTASSIUM CHLORIDE 40 MEQ in NS 1,000 ML IV SCH (18:39)
[2018-09-09] MEDS: MERREM 1 GM in NS 50 ML IV SCH ×2 (03:31→09:46)
[2018-09-09] MEDS: PERCOCET-10 PO PRN ×3 (04:24→14:00)
[2018-09-09] MEDS: ZYVOX 600 MG/D5W 600 MG/300 ML IVPB IV SCH (05:35)
[2018-09-09] MEDS: PROTONIX PO SCH (06:04)
[2018-09-09] MEDS: LYRICA PO SCH (09:00)
[2018-09-09] MEDS: MIRALAX PO SCH (09:01)
[2018-09-09] MEDS: NICODERM PATCH TD SCH (09:01)
[2018-09-09] MEDS ORDERED: SANDOSTATIN SUBQ ONE (12:11)
[2018-09-09 13:14] VITALS: BP 109/70
--- NOTE | 2018-09-09 13:14 | PROGRESS NOTE ---
DATE: 09/09/2018 SUBJECTIVE: Patient is awake and alert, no acute distress. She states she is feeling better. OBJECTIVE: Vital Signs: Temperature 98.1 degrees, pulse 95, respirations 15, blood pressure 123/77. LABORATORY: Hematology from 09/06/2018: WBC 12.50, hemoglobin 11.1, hematocrit 34.2, MCV 88.4. Chemistry: Sodium 137, potassium 3.1, chloride 105, CO2 20. BUN 15, creatinine 1.1, glucose 151. ASSESSMENT AND PLAN: 1. 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 Dr. Miller is following. She had an octreotide scan showing stable metastatic disease in the liver, retroperitoneum and left supraclavicular fossa. Continue to follow recommendations by Dr. Miller. 2. Diarrhea has improved. 3. Dysphagia, abdominal pain. Modified barium swallow showed episodic achalasia. Recommend to follow PPI and follow up with us as an outpatient. Further evaluation will be made according to her symptoms at that time. She may need esophagogastroduodenoscopy with possible dilation. I have discussed this case with Dr. Escalante. Dictated by LEE ANN Vásquez for Braeden Escalante MD cc: LEE ANN Crockett MD [facility]
[2018-09-09] MEDS: MYLICON PO PRN (14:00)
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
== END 2018-09-09 16:10 | disposition home or self-care (01) | DRG 689 ==
LOC: SUATTDRO 15:04 → DIRADM 15:04 → 3N 17:47
PROVIDERS: ATTEND Emergency Medicine
CPT/HCPCS: 71020; 71046; 74230; 78803; 78804; 80053; 81001; 82272; 82570; 82805; 83605; 83735; 83935; 84100; 84156; 84300; 84439; 84443; 85025; 85610; 86140; 87040; 87045; 87046; 87077; 87088; 87177; 87186; 87205; 87324; 87449; 88313; 89055; 92611; A9270; A9572; J2020; J2185; J2270; J2354; J3475; J3480; J7030; J7040; J7060

== ENCOUNTER 2018-10-04 06:41 | Inpatient (IN) ==
[2018-10-04] MEDS ORDERED: ZOFRAN IV ONE (07:24)
[2018-10-04] MEDS ORDERED: DILAUDID IV ONE ×2 (07:24→10:23)
[2018-10-04] MEDS ORDERED: NS 1,000 ML IV ONE ×2 (07:25→08:34)
--- NOTE | 2018-10-04 07:31 | PROVIDER DOCUMENTATION ---
HPI-General Adult - General Chief Complaint: Flank Pain Stated Complaint: BILATERAL FLANK PAIN Time Seen by Provider: 10/04/18 07:16 Source: patient Allergies/Adverse Reactions: Patient Allergies Allergy/AdvReac Type Severity Reaction Status Date / Time Penicillins Allergy Intermediate HIVES Verified 08/23/18 13:01 Home Medications: Home Medication List Medication Instructions Recorded Confirmed Last Taken Type Fentanyl 100 Microgm/Hr Patch 50 microgm TD Q72H 15 Days #5 patch 09/09/1809/26 Unknown Rx [Duragesic 100 Microgm/Hr Patch] Pantoprazole [Protonix] 40 mg PO DAILY@0700 30 Days #30 tab 09/09/18 09/26/18 Unknown Rx Everolimus [Afinitor] 10 mg PO DAILY 09/26/18 09/26/18 Unknown History Hydrocodone/Acetaminophen [[place] 1 each PO TID PRN PRN 09/26/18 09/26/18 Unknown History 10-325 Tablet] Potassium Chloride 20 meq PO DAILY 09/26/18 09/26/18 Unknown History Gabapentin [Neurontin] 100 mg PO BID #120 cap 09/27/18 Unknown Rx Nicotine Patch [Nicoderm Patch] 7 mg TD DAILY patch.[id number] 09/27/18 Unknown Rx - History of Present Illness -Gen Adult Nature of Presenting Problems: Bilateral flank pain for a few weeks, worse in past few days, PMH carcinoid cancer of mesentery, seen by onc MD Dr Farias yesterday. No fever, having emesis non bloody non bilious over 5 x since yesterday, fentanyl patches cause emesis, cannot keep meds down. Once a month injection for cancer treatment. Pain Radiation: reports: no radiation Quality of Pain: reports: aching, sharp Onset/Duration: reports: gradual, other (weeks) Timing: reports: still present Context/Activities at Onset: reports: none Modifying Factors: improves with: nothing Associated Symptoms: reports: denies symptoms Similar Symptoms Previously?: Yes Recently seen or treated by another doctor?: Yes Review of Systems - Adult - REVIEW OF SYSTEMS - ADULT Constitutional: reports: no symptoms reported. denies: chills, fever, fatique, night sweats Eyes: reports: no symptoms reported. denies: discharge Ears, Nose, Mouth & Throat: reports: no symptoms reported Cardiovascular: reports: no symptoms reported. denies: chest pain, irregular heart rate, syncope Respiratory: reports: no symptoms reported Gastrointestinal: reports: no symptoms reported, abdominal pain Genitourinary: reports: no symptoms reported, hesitency. denies: dysuria, incontinence Musculoskeletal: reports: no symptoms reported, back pain. denies: bone pain Integumentary: reports: no symptoms reported Neurological: reports: no symptoms reported. denies: ataxia, dizziness/vertigo , numbness, paresthesia, seizure Psychiatric: reports: no symptoms reported Endocrine: reports: no symptoms reported Hematologic/Lymphatic: reports: no symptoms reported Allergic/Immunologic: reports: no symptoms reported All Other Systems: Reviewed and Negative Past History - Adult - PAST MEDICAL HISTORY-ADULT Review of Records: reports: Old Records Reviewed, Nursing Assessment Review, Medications Reviewed Major Childhood Illnesses: reports: denies history Cardiovascular: reports: HTN, hyperlipidemia Respiratory: reports: denies history Gastrointestinal: reports: cancer (carcinoid tumor with liver metastasis) Obstetrical/Gynecological: reports: ovarian cysts Genitourinary: reports: denies history Musculoskeletal: reports: chronic pain, fibromyalgia Neurological: reports: other (fibromyalgia) Psychiatric: reports: anxiety Endocrine/Immune: reports: denies history Other Conditions: reports: denies history - PRIOR SURGERIES/PROCEDURES Surgical/Procedure History: reports: appendectomy, cholecystectomy - PRIOR HOSPITALIZATIONS Prior Hospitalizations: reports: for other non-related - IMMUNIZATION STATUS Childhood Immunizations: See Nurse Assessment Flu Vaccine: See Nurse Assessment - FAMILY HISTORY Family History: reviewed, not pertinent Physical Exam-General - PHYSICAL EXAM-ADULT Initial Vital Signs Reviewed: Yes - CONSTITUTIONAL General Appearance: alert, mild distress - EYES Eyes: pink conjunctivae - HEAD, EARS, NOSE, MOUTH & THROAT HENMT: other (dry mucus membranes) - NECK Neck: supple - RESPIRATORY Respiratory: lungs clear, normal breath sounds, no pleuratic chest pain, no respiratory distress, no accessory muscle use - CARDIOVASCULAR Cardiovascular: normal peripheral pulses, no murmur, tachycardia - GASTROINTESTINAL (ABDOMEN) Abdominal Exam: soft, no organomegaly, other (mild diffuse tenderness) - LYMPHATIC Lymphatic: no adenopathy - MUSCULOSKELETAL Extremity: normal gait Peripheral Pulses: radial (R): 2+, radial (L): 2+ - SKIN Integumentary: normal color, normal turgor, warm/dry - NEUROLOGIC Neurologic: grossly normal - PSYCHIATRIC Psych/Mental Status: normal mood/affect, normal thought content, normal thought process, oriented x 3 Progress - PLAN OF CARE/RESULTS Progress/Plan/Lab Results: Vital Signs - 8 hr 10/04/18 06:47 Temperature 97.3 F L Pulse Rate 112 H Respiratory Rate 19 Blood Pressure 95/57 O2 Sat by Pulse Oximetry 98 Orders Category Date Time Status Saline Loc NOW Care 10/04/18 07:26 Ordered CBC WITH ELECTRONIC DIFF [HEME] Stat Lab 10/04/18 07:25 Uncollected CMP [COMPREHENSIVE METABOLIC PANEL] [CHEM] Stat Lab 10/04/18 07:25 Uncollected URINALYSIS W/POSS RFLX CULT [URINALYSIS] Stat Lab 10/04/18 06:52 Ordered Hydromorphone [Dilaudid] Med 10/04/18 07:24 Once 1 mg IV NOW ONE Ns 1000 ml IV Bolus X1 Med 10/04/18 07:25 Ordered 0.9% Sodium Chloride Inj [Ns] 1,000 ml IV 999 mls/hr Ondansetron [Zofran] Med 10/04/18 07:24 Once 4 mg IV NOW ONE Call out to [facility] for some time, call returned 1323 d/w [facility] exam results thus far, he report creatinine is higher and since no uop after 2L IVF (he gave 1.5 L yesterday) rec admit, d/w him abxn, will get in and out cath to record urine or not and get sample if there. admit to hospitalist call out to hospitalist [address] [facility] visit yesterday with onc , exam, results, treatment, concerns, admit to [facility] Result Diagrams: 10/04/18 07:46 10/04/18 08:05 Departure - Departure Date of Disposition Decision: 10/04/18 Time of Disposition Decision: 13:32 DIAGNOSIS: Bilateral back pain Disposition: ADMITTED INPATIENT 09 Certified Medical Emergency: Emergent Condition: Good Additional Freetext Instructions: Admit to [facility]3 Referrals and Follow-Ups: None,PCP [Primary Care Provider] - Discharge Education: Steps to Quit Smoking, [id number] - Critical Care Note This patient required my direct & personal management of CC.: No Attestation - Physician/ JESSICA Attestation The physician spent face to face time with patient:: Yes Advanced Practice Provider documentation review:: Supervising physician onsite and consulted in the evaluation and care of this patient. The physician did have a face to face encounter with the patient.
[2018-10-04 08:05] LABS: BASO# 0.03 X1000 (0.0-0.2); BASO% 0.1 % (0.0-0.8); EOS# 0.09 X1000 (0.0-0.7); EOS% 0.3 % (0.0-10.0); HEMATOCRIT 37.4 % (37.0-47.0); HEMOGLOBIN 12.1 g/dL (12.0-16.0); IMM GRAN# 0.13 X1000 (0.0-0.04); IMM GRAN% 0.4 % (0.0-0.5); LYMPH# 1.03 X1000 (1.2-3.4); LYMPH% 3.4 % (20.5-51.1); MCH 28.1 PG (27-31); MCHC 32.4 g/dL (33-37); MONO# 2.85 X1000 (0.11-0.59); MONO% 9.5 % (1.7-9.3); MPV 10.3 FL (7.4-10.4); NEUT# 25.76 X1000 (1.4-6.5); NEUT% 86.3 % (42.2-75.2); PLT 238 X1000 (130-400); WBC 29.89 X1000 (4.8-10.8)
[2018-10-04 08:53] LABS: ALB/GLOB RATIO 0.9; ALBUMIN 3.2 g/dL (3.5-5.0); CALCIUM 7.8 mg/dL (8.8-10.2); CREATININE 4.8 mg/dL (0.5-0.9); TOTAL BILIRUBIN 0.17 mg/dL (0.20-1.00); TOTAL PROTEIN 6.8 g/dL (6.3-8.3)
[2018-10-04] MEDS ORDERED: ROCEPHIN 1 GM in NS 50 ML IV ONE (10:07)
--- NOTE | 2018-10-04 10:21 | Diag Imaging Result Doc PS360 ---
EXAM: CHEST-PORTABLE HISTORY: cough TECHNIQUE: Chest single view COMPARISON: 09/26/2018 FINDINGS: The lungs are well expanded. The heart is not enlarged. The vessels are not distended. There are no infiltrates. No effusion identified. IMPRESSION: No pneumonia Electronically signed by Peyman Mason 10/04/2018 10:19 AM
[2018-10-04 14:07] LABS: URINE SOURCE CATH
[2018-10-04] MEDS ORDERED: ZOFRAN IV PRN (14:10)
[2018-10-04] MEDS ORDERED: PHENERGAN IV PRN (14:10)
[2018-10-04 14:14] LABS: BILIRUBIN URINE NEGATIVE (NEGATIVE); BLOOD URINE LARGE (NEGATIVE); CLARITY CLOUDY (CLEAR); COLOR YELLOW; GLUCOSE URINE NEGATIVE (NEGATIVE); KETONE URINE NEGATIVE (NEGATIVE); LEUKOCYTES URINE MODERATE (NEGATIVE); NITRITE URINE NEGATIVE (NEGATIVE); PH URINE 5.5; PROTEIN URINE 100 mg/dL (NEGATIVE); SP GRAVITY URINE >= 1.030; URINE BACTERIA 1+ /HFP; URINE EPITHELIAL CELLS <10 /HPF (<10); UROBILINOGEN URINE 0.2 EU/dL (0.2-1.0)
[2018-10-04 14:15] LABS: URINE WBC 20-40 /HPF (<10)
[2018-10-04] MEDS ORDERED: NS 1,000 ML IV SCH (14:15)
[2018-10-04] MEDS: DILAUDID IV PRN ×3 (14:27→21:59)
[2018-10-04 14:43] LABS: ALLEN TEST NO; BE -18.1 mmoll (-3.0-3.0); BLOOD TYPE ARTERIAL; HCO3-(ACT) 10.8 mmoll (20.0-26.0); O2(CT) 13.7 mL/dL (15.0-23.0); O2HB 94.2 % (95.0-99.0); PCO2(98.6) 28 mmHg (35-45); PO2(98.6) 81 mmHg (60-100); SAMPLE BLOOD; SAO2 97.5 % (95.0-100.0); THB 10.3 g/dL (11.5-17.4)
[2018-10-04 14:46] LABS: MODALITY ROOM AIR; pH(98.6) 7.14 (7.35-7.45)
[2018-10-04] MEDS: NS 1,000 ML IV SCH ×2 (15:00→21:15)
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
--- NOTE | 2018-10-04 15:39 | Diag Imaging Result Doc PS360 ---
EXAM: CT ABDOMEN/PELVIS W/O CONTRAST INDICATION: bilateral flank pain BREEZY TECHNIQUE: This exam was performed using automated exposure control, adjustment of mA or kV according to patient size, and/or use of iterative reconstruction technique. COMPARISON: 09/26/2018 FINDINGS: There are a few small pleural-based nodules at the lung bases that are stable. There has been a prior cholecystectomy. The mass at the posterior aspect of the liver seen on the previous study is again identified. There is a region of lower internal density within the mass that probably represents necrosis. This is larger than the previous study. No new liver lesions are identified by unenhanced CT. There is stable periaortic lymphadenopathy. The pancreas, spleen, and adrenal glands are stable as compared to the recent prior study. There is a stable small cortical calcification involving the superior left kidney. No renal or ureteral stones are identified and there is no hydronephrosis. The urinary bladder is nondistended. Matted periaortic lymphadenopathy is stable. There appears to have been a prior right hemicolectomy. There is no evidence of bowel obstruction. There are fluid-filled loops of small bowel with only mild distention that are nonspecific. The appearance of the small bowel is similar to the previous study. There are dilated varices throughout the mesentery that are stable. Trace ascites has developed around the liver. There is nothing to suggest bony metastatic disease. IMPRESSION: 1.Massive the posterior aspect of the right hepatic lobe seen previously exhibits lower attenuation centrally suggesting advancing necrosis. 2.Stable periaortic lymphadenopathy. 3.Liquid stool in the colon indicating a diarrheal illness. 4.Nonspecific fluid-filled loops of small bowel with no sign of obstruction. 5.Interval development of trace ascites tracking around the liver. 6.The abdomen and pelvis are essentially stable, otherwise. Electronically signed by Rakesh Cardoza 10/04/2018 3:36 PM
--- NOTE | 2018-10-04 16:15 | Diag Imaging Result Doc PS360 ---
EXAM: US ABDOMEN-COMPLETE INDICATION: abd and bilateral flank pain COMPARISON: 05/03/2018 FINDINGS: There has been a prior cholecystectomy. The common bile duct is dilated measuring up to 1.1 cm. This is probably, at least in part, due to postcholecystectomy status. There is a known mass at the posterior inferior aspect of the right hepatic lobe. The lesion is larger than the previous ultrasound measuring up to 6.1 cm in the greatest dimension (4 cm previously). It is hypoechoic with a central oval region of increased echogenicity. This was not present on the previous study. This increased echogenicity probably corresponds to the low attenuation centrally seen on a CT performed earlier today suggesting central necrosis. No other liver mass is appreciated. Portal venous flow is hepatopetal. The pancreas is obscured by bowel gas. The aorta and IVC are grossly unremarkable. The spleen is unremarkable. The kidneys are grossly unremarkable. IMPRESSION: 1.Known mass in the posterior inferior aspect of the right hepatic lobe has increased in size as the previous ultrasound in 2018. 2.Dilated common bile duct, probably, at least in part, due to postcholecystectomy status. Electronically signed by Rakesh Cardoza 10/04/2018 4:13 PM
[2018-10-04] MEDS ORDERED: SODIUM CHLORIDE 0.9% INJ PRN (16:41)
--- NOTE | 2018-10-04 19:07 | NEPHROLOGY CONSULTATION ---
DATE: 10/04/2018 REASON FOR CONSULTATION: Acute kidney injury. HISTORY OF PRESENT ILLNESS: Ms. Bolivar is a 48-year-old white female with a diagnosis of carcinoid with liver metastases. She has fibromyalgia and COPD. She has chronic pain syndrome, for which she takes fentanyl, Neurontin, [place]. She is disabled from her illness. She was actually referred to my office on 2 occasions last fall, with creatinine as high as 3.5. She was not able to come to her appointments because of transportation issues. She lives in [facility]. At any rate, she came to the hospital today because of worsening pain in her flanks which she attributed to her kidneys. She had anorexia, nausea and some vomiting. She states she has diarrhea on a daily basis, and this is helped modestly with taking Imodium. No chills or fever, sweats or night sweats. Her chart finds that she had laboratory data collected over the period of 09/03 through 09/06 on a daily basis, suggesting she was hospitalized. PAST MEDICAL HISTORY: As above. MEDICATIONS: Home medications include: 1. Pantoprazole. 2. Fentanyl. 3. Everolimus. 4. Hydrocodone. 5. Acetaminophen. 6. Potassium. 7. Nicotine. 8. Gabapentin. ALLERGIES: Penicillin. SOCIAL HISTORY: Again, lives in [place]. Ongoing tobacco use. Occasional alcohol. No recent marijuana, though she has used marijuana in the past. Denies other substances. FAMILY HISTORY: Negative for kidney disease. REVIEW OF SYSTEMS: Otherwise noncontributory. PHYSICAL EXAMINATION: Vital Signs: Blood pressure 103/65, heart rate 105, respirations 18. Afebrile. General: She is a thin, chronically ill-appearing, middle-aged woman in no acute distress. Skin: Warm and dry. Conjunctivae are pink and moist. Pupils are equal. Oropharynx is dry, with poor dentition. Multiple broken carious teeth. Neck: Supple. Trachea is midline. Neck veins are not visible. Heart: PMI nondisplaced. Regular rate and rhythm with S4. Lungs: Equal breath sounds. No crackles. Abdomen: Soft, nontender. Bowel sounds present. Extremities: No edema, clubbing or cyanosis. Neurologic: Exam is nonfocal. IMPRESSION AND PLAN: Acute kidney injury. Though her creatinine has been as high as 3.5 in the past, her creatinine was 1.1 on 09/06 and actually 0.8 on 09/26. This implies that her acute kidney injury is intravascular volume depletion. She will receive normal saline overnight and we will observe her response. Her abdominal ultrasound did not disclose any abnormalities with the kidneys. No obstruction, no masses, etc. No further diagnostic evaluation is required this evening. We will simply follow her response clinically. cc: Dylan Chou MD
[2018-10-04] MEDS: SODIUM BICARBONATE 8.4% 150 MEQ in D5W 1,000 ML IV SCH (19:24)
[2018-10-04] MEDS: PRILOSEC PO SCH (20:35)
[2018-10-04] MEDS: NEURONTIN PO SCH (22:23)
[2018-10-05] MEDS: DILAUDID IV PRN ×5 (01:51→21:22)
[2018-10-05] MEDS: NS 1,000 ML IV SCH ×2 (05:03→07:22)
[2018-10-05 05:21] LABS: INR 1.06; PROTIME 14.7 Seconds (11.0-16.0)
[2018-10-05 05:22] LABS: PTT 35.1 Seconds (22.3-41.8)
[2018-10-05 05:39] LABS: BASO# 0.02 X1000 (0.0-0.2); BASO% 0.1 % (0.0-0.8); EOS# 0.12 X1000 (0.0-0.7); EOS% 0.6 % (0.0-10.0); HEMATOCRIT 30.7 % (37.0-47.0); HEMOGLOBIN 9.8 g/dL (12.0-16.0); IMM GRAN# 0.07 X1000 (0.0-0.04); IMM GRAN% 0.4 % (0.0-0.5); LYMPH# 0.74 X1000 (1.2-3.4); MCH 27.7 PG (27-31); MCHC 31.9 g/dL (33-37); MCV 86.7 FL (81-99); MONO# 1.75 X1000 (0.11-0.59); MONO% 9.4 % (1.7-9.3); MPV 10.4 FL (7.4-10.4); NEUT# 15.99 X1000 (1.4-6.5); NEUT% 85.5 % (42.2-75.2); PLT 179 X1000 (130-400); RBC 3.54 XMIL (4.2-5.4); RDW 14.9 % (11.5-14.5); WBC 18.69 X1000 (4.8-10.8)
[2018-10-05 05:45] LABS: AGAP 19; ALB/GLOB RATIO 0.8; ALBUMIN 2.8 g/dL (3.5-5.0); ALKALINE PHOSPHATASE 76 U/L (32-104); BUN 47 mg/dL (8-22); CALCIUM 7.3 mg/dL (8.8-10.2); CHLORIDE 102 mmol/L (98-107); COSMO 279; ESTIMATED GFR 7; GLUCOSE 107 mg/dL (70-104); GOT 9 U/L (10-30); GPT 6 U/L (10-36); MAGNESIUM 1.8 mg/dL (1.5-2.7); PHOSPHORUS 9.1 mg/dL (2.7-4.5); POTASSIUM 2.9 mmol/L (3.5-5.1); SODIUM 133 mmol/L (136-145); TCO2 12 mmol/L (25-35); TOTAL BILIRUBIN < 0.15 mg/dL (0.20-1.00); TOTAL PROTEIN 6.1 g/dL (6.3-8.3)
[2018-10-05] MEDS: SODIUM BICARBONATE 8.4% 150 MEQ in D5W 1,000 ML IV SCH ×3 (05:58→19:49)
[2018-10-05 05:59] LABS: LYMPHS 5 % (21-51); MONO 9 % (1-9); SEGS 86 % (42-75)
[2018-10-05] MEDS ORDERED: POTASSIUM CHLORIDE 60 MEQ in NS 500 ML IV ONE (07:56)
[2018-10-05] MEDS: PRILOSEC PO SCH ×3 (08:07→21:04)
[2018-10-05] MEDS: NEURONTIN PO SCH ×3 (08:09→21:04)
[2018-10-05] MEDS: ROCEPHIN 1 GM in NS 50 ML IV SCH (08:09)
[2018-10-05 08:46] LABS: ALLEN TEST YES; BE -11.9 mmoll (-3.0-3.0); BLOOD TYPE ARTERIAL; HCO3-(ACT) 15.6 mmoll (20.0-26.0); METHB 1.6 % (0.0-1.5); O2(CT) 13.2 mL/dL (15.0-23.0); O2HB 94.3 % (95.0-99.0); PCO2(98.6) 30 mmHg (35-45); PO2(98.6) 81 mmHg (60-100); SAMPLE BLOOD; SAO2 97.3 % (95.0-100.0); THB 9.9 g/dL (11.5-17.4); pH(98.6) 7.27 (7.35-7.45)
[2018-10-05 08:48] LABS: MODALITY ROOM AIR
--- NOTE | 2018-10-05 09:02 | PROGRESS NOTE ---
DATE: 10/05/2018 SUBJECTIVE: The patient reports feeling nauseated. According to nursing staff, she did not make any urine since yesterday. OBJECTIVE: Vital Signs: Temperature 97.6 degrees, heart rate 96, respiratory rate 12, blood pressure 130/76, O2 saturation 99% on room air. General: This is a chronically ill-looking, 48- year-old, female lying in bed, in no acute distress. HEENT: Head is normocephalic and atraumatic. Neck: No JVD noted. No carotid bruits. No lymphadenopathy. No thyromegaly. Cardiovascular: S1 and S2 heard. No murmurs, gallops, or rubs. Regular rate and rhythm. Respiratory: Clear bilaterally to auscultation. No work of breathing or using accessory muscles. Abdomen: Soft, cachectic. Mildly tender to palpation in the epigastric area. The patient is not using any accessory muscles or having work of breathing. Bowel sounds present but hypoactive. Extremities: No clubbing, cyanosis, or edema. Peripheral pulses present in both legs. The patient has muscle wasting noted. Neurological: The patient is alert and oriented x3. Moves 4 extremities. LABORATORY DATA: White cell count 18.69, hemoglobin 9.9, hematocrit 30.7, platelets 179,000. BMP reveals potassium 2.9, creatinine 6.0, calcium 7.3, phosphorus 9.1. ASSESSMENT AND PLAN: 1. Acute kidney injury. That condition continues to get worse. During the last 24 hours, the patient has not made any urine. There is no ABG from today, but the BMP shows still severe metabolic acidosis. The patient has been started on bicarb drip since yesterday. We are going to continue with the same. I think this patient may need dialysis down the road. Will follow Dr. Chou's recommendations. 2. 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 The patient is being followed by Dr. Miller. I do think this patient needs to be seen as an outpatient for this condition. 3. Chronic pain syndrome on chronic narcotic use. The patient continues to require pain medication even though she is receiving 1 mg of Dilaudid every 3 hours p.r.n. I warned this patient that with her worsening renal function, it is going to be dangerous to increase the dose of that medication. She acknowledged understanding. 4. Chronic obstructive pulmonary disease, not in exacerbation. Will provide breathing treatments only as needed for this patient. 5. Leukocytosis. Apparently at admission we were suspecting a urinary tract infection. Will continue with ceftriaxone, but now of course there is no result of the urine culture yet. 6. Tobacco abuse. Aware. DISPOSITION: Will continue to monitor this patient closely. cc: Arron Parker MD
--- NOTE | 2018-10-05 11:42 | NEPHROLOGY PROGRESS NOTE ---
DATE: 10/05/2018 SUBJECTIVE: Patient is complaining of pain. She is upset about her dose of Dilaudid. OBJECTIVE: Vital Signs: Temperature 98.9 degrees, pulse 99, respiratory rate 14, blood pressure 110/67. Intake 2.4 L. Output was not measured. Physical Examination: General: This is a chronically ill-appearing female resting in bed. She is awake and alert. Complaining of pain to her abdomen. HEENT: Normocephalic , atraumatic. Conjunctivae are pale. Oral mucosa is moist. Neck: Supple without JVD. Cardiovascular: Regular rate and rhythm. Pulmonary: She is clear bilaterally. Abdomen: Soft. Positive bowel sound. Tender in the right upper quadrant. : Viramontes catheter. Small amount of urine. Extremities: No clubbing, cyanosis, or edema. Integumentary: Skin is warm and dry. Lab Data: WBC of 18.6, hemoglobin 9.8. Sodium 133, potassium 2.9, CO2 12, creatinine 6 (4.8). ASSESSMENT AND PLAN: 1. Acute kidney injury. Her renal function is slightly worse today. She continues with acidosis. Patient is already on a bicarb drip. She does not have an absolute indication for intervention in the form of dialysis today but if she does not have a change in renal function within the next 24 to 48 hours, we will likely have to make a decision regarding this. 2. Carcinoid tumor with liver metastasis, followed by hematology/oncology. 3. Chronic pain syndrome. I explained to the patient the consequences of continuing to increase her pain medication. We will defer to the primary for this treatment. Dictated by LEE ANN Schumacher for Dylan Chou MD Face to face encounter, data reviewed, discussed with Leon Johnson on 10/05/18. I agree with the above assessment and plan of care. cc: Dylan Chou MD [facility]
[2018-10-05] MEDS ORDERED: DILAUDID IV PRN ×2 (13:20→15:19)
[2018-10-05] MEDS: NICODERM PATCH TD SCH (14:31)
[2018-10-06] MEDS: DILAUDID IV PRN ×5 (00:09→20:09)
[2018-10-06] MEDS: SODIUM BICARBONATE 8.4% 150 MEQ in D5W 1,000 ML IV SCH (03:23)
[2018-10-06 05:44] LABS: ALLEN TEST YES; BE -3.8 mmoll (-3.0-3.0); BLOOD TYPE ARTERIAL; METHB 0.7 % (0.0-1.5); O2(CT) 11.5 mL/dL (15.0-23.0); O2HB 96.1 % (95.0-99.0); PCO2(98.6) 30 mmHg (35-45); PO2(98.6) 75 mmHg (60-100); SAMPLE BLOOD; SAO2 98.4 % (95.0-100.0); THB 8.4 g/dL (11.5-17.4); pH(98.6) 7.43 (7.35-7.45)
[2018-10-06 05:45] LABS: MODALITY ROOM AIR
[2018-10-06 05:55] LABS: HEMOGLOBIN 8.2 g/dL (12.0-16.0); MCH 28.2 PG (27-31); MCHC 32.8 g/dL (33-37); MCV 85.9 FL (81-99); RBC 2.91 XMIL (4.2-5.4); RDW 14.7 % (11.5-14.5); WBC 14.1 X1000 (4.8-10.8)
[2018-10-06 06:06] LABS: ALBUMIN 2.6 g/dL (3.5-5.0); CALCIUM 7.1 mg/dL (8.8-10.2); PHOSPHORUS 6.7 mg/dL (2.7-4.5); POTASSIUM 2.9 mmol/L (3.5-5.1)
[2018-10-06 06:14] LABS: CREATININE 6.5 mg/dL (0.5-0.9)
[2018-10-06] MEDS ORDERED: TIGHT: 0.2 ML/HR FOR DIALYSIS MISC PRN (07:09)
[2018-10-06] MEDS ORDERED: NS 2,000 ML MISC PRN (07:09)
[2018-10-06] MEDS ORDERED: HEPARIN IV PRN (07:09)
[2018-10-06] MEDS ORDERED: POTASSIUM CHLORIDE 60 MEQ in NS 500 ML IV ONE (07:30)
[2018-10-06] MEDS: ROCEPHIN 1 GM in NS 50 ML IV SCH ×2 (07:58→08:06)
[2018-10-06] MEDS: NICODERM PATCH TD SCH ×2 (07:58→08:06)
[2018-10-06] MEDS: PRILOSEC PO SCH ×2 (07:59→20:08)
[2018-10-06] MEDS: NEURONTIN PO SCH ×2 (07:59→20:08)
--- NOTE | 2018-10-06 08:46 | PROGRESS NOTE ---
DATE: 10/06/2018 SUBJECTIVE: The patient reports still feeling some mild abdominal pain. The patient is still not making any urine. OBJECTIVE: Vital Signs: Temperature 98.8, heart rate 112, respiratory rate 14, blood pressure 130/73, O2 saturation 97% on room air. General: This is a chronically ill-looking and frail 48- year-old female, looking older than her stated age, lying in bed, in no acute distress. HEENT: Head is normocephalic, atraumatic. Neck: No JVD noted. No carotid bruits. No lymphadenopathy. No thyromegaly. Cardiovascular: S1, S2 heard. No murmurs, gallops, or rubs. Regular rate and rhythm. Respiratory: Clear bilaterally to auscultation. No work of breathing or using accessory muscles. Abdomen: Soft. Cachectic. Mild tender to palpation in the epigastric area. Bowel sounds present but hypoactive. No organomegaly noted. Extremities: No clubbing, cyanosis, or edema. Peripheral pulses present in both legs. The patient has muscle wasting noted in all 4 extremities. Neurological: Patient alert and oriented x3. Moves 4 extremities. LABORATORY DATA: White cell count 14.1, hemoglobin 8.2, hematocrit 25.0, platelets 134,000. ABG shows pH 7.43, with pCO2 30, PO2 75 with BMP remarkable for creatinine 6.5 with GFR of 7, potassium 2.9. Phosphorus 6.7. ASSESSMENT AND PLAN: 1. Aneuric acute kidney injury. I have talked with Dr. Chou from Nephrology today and he is planning to start dialysis. Dr. Mejia from General Surgery has been consulted for Vas-Cath placement and the patient will start having dialysis after that. We appreciate Dr. Chou's input. 2. 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 Dr. Miller is following this patient. 3. Chronic pain syndrome on chronic narcotic use. Patient again advised about being very careful using pain medications. She was using Dilaudid 1 mg IV q.3 hours p.r.n. that I am going to reduced to 0.5 q.4 hours because of renal dysfunction. I already talked with the patient about the risk of accidental overdose if we continue providing the same doses of pain medications, and the patient acknowledged understanding. 4. Chronic obstructive pulmonary disease. Patient is not in any exacerbation. Patient receiving breathing treatments only as needed for shortness of breath. 5. Urinary tract infection. Leukocytosis is getting better. The urine culture did not show any growth but considering that this patient's white cell count continues to improve, we will continue with ceftriaxone. No need for adjustment of the doses of that. 6. Tobacco abuse. Patient advised to stop smoking. 7. Disposition. Following lead of nephrology. cc: Arron Parker MD
--- NOTE | 2018-10-06 10:00 | NEPHROLOGY PROGRESS NOTE ---
DATE: 10/06/2018 TIME SEEN: 0700 SUBJECTIVE: Ms. Bolivar is resting quietly in bed. Her head of the bed is slightly elevated. She appears chronically ill, though no acute distress. Her skin is warm and dry. OBJECTIVE: Her most recent vital signs: Her last temperature 98.8 degrees, blood pressure 130/73, heart rate 112, respirations 14, she is on room air, last recorded saturation is 97%. Intake and output: Her intake is 2980. Her output has been only 100 mL to Viramontes catheter. The patient is in a 5.4 L positive fluid balance. Laboratory Data: The patient has a sodium of 135, potassium 2.9, chloride 99, CO2 of 18, BUN is 48, creatinine is 6.5, glucose of 112, her anion gap is 18, she has a calcium of 7.1, phosphorus 6.7, albumin of 2.6. Plasma lactate last obtained was 0.9. Her white count 14.10, hemoglobin 8.2, hematocrit 25, platelet count is 134,000. ABGs: A pH 7.43, CO2 of 30, PO2 of 75, bicarbonate 22. The patient's oxyhemoglobin is up to 96.1. Her lactate is 1. This is on room air. PHYSICAL EXAMINATION: General: This is a 48-year-old white female, resting quietly in bed. She appears chronically ill, though no acute distress. Skin: Warm and dry. HEENT : Normocephalic, atraumatic. Conjunctiva is pale. She has DEB. Mucous membranes are dry. Neck: Supple. Trachea midline. She does have positive JVD. Cardiovascular: She is regular rate and rhythm. No appreciable murmur or gallop. Lungs: Have coarse rhonchi with some bibasilar crackles. She is on room air. Abdomen: Soft, nontender. Positive bowel sounds. Genitourinary: Viramontes catheter is in place. She has had 100 mL documented out in the last 24 hours. There is nothing in the tubing or the bag upon exam. Extremities: She does have 2+ edema today with no clubbing or cyanosis. Integumentary: She is warm and dry without rashes or lesions. Neurological: She is alert and oriented x3. ASSESSMENT AND PLAN: 1. Acute kidney injury. Her BUN and creatinine have continued to worsen over her hospital stay. She remains acidotic. She is currently on a bicarbonate drip. She now exhibits positive JVD with 2+ lower extremity edema. The patient has positive edema this a.m. Due to these findings and decreased urinary output, we have discussed starting hemodialysis with the patient today. We have discussed that this possibly may just be a bridge for her kidneys until they start to wake up secondary to her carcinoid tumor with liver metastasis. The patient is in agreement. We will consult Dr. Mejia for placement of dialysis catheter with plan to start dialysis hopefully today. If not, then in the a.m. We will place the patient n.p.o. I have put orders in for dialysis for 2-1/2hours on a 2K bath. She is to attempt to pull 2 to 4 L of ultrafiltration as tolerated with plans for dialysis in the morning. 2. Electrolytes and acid-base balance. Phosphorus is slightly elevated. Calcium is stable. Again with plan for correction on dialysis. 3. Anemia. Again, we will continue to monitor. No indications for intervention today. 4. Carcinoid tumor with liver metastasis. This is followed by Hematology/ Oncology. 5. Chronic pain syndrome. We have deferred to the primary care team. I would to thank you for allowing us to follow with this patient. Dictated by LEE ANN Lopez for Dylan Chou MD Face to face encounter, data reviewed, discussed with Tre Diane on 10/06/18. I agree with the above assessment and plan of care. cc: LEE ANN Lopez MD [facility]
[2018-10-06] MEDS ORDERED: NS 250 ML ONE (15:02)
[2018-10-06] MEDS ORDERED: XYLOCAINE 1%/EPI 1:100,000 ONE (15:02)
[2018-10-06] MEDS ORDERED: HEPARIN ONE (15:02)
[2018-10-06] MEDS ORDERED: DIPRIVAN 1% ONE (15:27)
[2018-10-06] MEDS ORDERED: XYLOCAINE-MPF 2% ONE (15:27)
[2018-10-06] MEDS: DILAUDID ONE ×4 (17:19→17:33)
--- NOTE | 2018-10-06 18:15 | HEMO/ONC CONSULTATION ---
DATE: 10/05/2018 ADMITTING AND REQUESTING PHYSICIAN: Arron Parker MD CHIEF COMPLAINT: Carcinoid tumor. HISTORY OF PRESENT ILLNESS: Ms. Farheen Bolivar is a 48-year-old, female, well known to Dr. Miller with a history of carcinoid tumor of the liver. The patient has been maintained on Sandostatin secondary to carcinoid syndrome. Her last dose was given 06/14/2019. The patient does have chronic pain associated with this illness and has a history of chronic opioid and narcotic abuse. The patient presented to [facility] with complaints of 3 days of bilateral flank pain, worse on the right with abdominal pain, diarrhea and decreased urination. The patient was seen the day of admission in Dr. Miller's clinic for IV pain medication and hydration. In order for the patient to receive an additional prescription of pain medications, urine drug screen was required for which she was sent to [facility]. However, straight cath revealed only 7 mL of urine, and the patient was admitted for acute kidney insufficiency with a creatinine of 4.8. We are consulted as the patient is well known to us. PAST MEDICAL HISTORY: 1. 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 2. Anxiety and depression. 3. Chronic pain with chronic narcotic and opioid abuse. 4. Fibromyalgia. 5. COPD. PAST SURGICAL HISTORY: 1. Colon resection after [place] in 2008. 2. Cholecystectomy. 3. Right eye surgery. SOCIAL HISTORY: The patient smokes 1/2 pack cigarettes daily since the age of 15. She reports that she drinks alcohol rarely. She states that she does not use illicit drugs. However, she has been incarcerated for the same. FAMILY HISTORY: Significant for lung cancer in the patient's mother. MEDICATIONS ON ADMISSION: 1. Afinitor. 2. [place]. 3. Potassium chloride. 4. Fentanyl patches. 5. Neurontin. 6. Nicotine patch transdermal. 7. Protonix. ALLERGIES: To penicillin which causes itching. REVIEW OF SYSTEMS: A 14 point review of systems was obtained and is negative except as mentioned in HPI. PHYSICAL EXAM: General: Ms. Bolivar is a 48-year-old female lying supine in bed. Somewhat anxious, but in no acute distress. Vital Signs: Temperature 97.6, blood pressure 130/76, heart rate 96, respirations 12, O2 saturation is 99% on room air. HEENT: Normocephalic, atraumatic. Mucous membranes pale and dry. Sclerae anicteric. Extraocular movements intact. Neck: Supple. Lungs: Clear to auscultation bilaterally. Chest expansion equal bilaterally. CV: S1, S2 is heard without murmur rub or gallop. Abdomen: Nondistended. Extremities: No clubbing, cyanosis, or edema. Dermatologic: No rashes bruises or lesions. Neurologic: The patient is awake, alert, and oriented x3. She has no focal deficits. LABORATORY DATA: Hemoglobin is 9.8, hematocrit 30.7. White blood cell count 18.69, platelets 179. Sodium 133, potassium 2.9, chloride 102, CO2 is 12, BUN 47, creatinine 6.0, glucose 107, calcium 7.3, magnesium 1.8. Phosphorus 9.1, bilirubin is less than 0.15, alkaline phosphatase 76, AST 9, ALT 6. Urinalysis is positive for UTI. Blood cultures are pending. IMAGING STUDIES: Chest x-ray reveals no pneumonia. CT of the abdomen and pelvis reveals advancing necrosis of the right hepatic lobe mass with periaortic lymphadenopathy, diarrhea and ascites surrounding the liver. ASSESSMENT AND PLAN: 1. Metastatic carcinoid tumor to the liver on Sandostatin for carcinoid syndrome. Last dose being 06/14/2018. 2. Acute kidney insufficiency. The patient is on IV fluid hydration at this time. Nephrology has been consulted. 3. Chronic pain with chronic opioid abuse. Would continue current pain regimen as scheduled. 4. Leukocytosis. Cultures are currently pending. The patient does have a urinary tract infection at this time. We will continue to monitor. 5. Chronic obstructive pulmonary disease. Stable at this time. We will continue to monitor. 6. We will follow along with you and make further recommendations pending outcomes. The above reflects the history, exam, assessment and plan of Dr. Miller. Dictated by LEE ANN Donato for Anson Miller MD cc: LEE ANN Donato MD
--- NOTE | 2018-10-06 18:34 | OPERATIVE NOTE ---
PROCEDURE DATE: 10/06/2018 PREOPERATIVE DIAGNOSIS: Renal failure requiring hemodialysis. POSTOPERATIVE DIAGNOSIS: Renal failure requiring hemodialysis. PRINCIPAL PROCEDURE: Right internal jugular PermCath using ultrasound and fluoroscopy. SURGEON: Sis Mejia MD. ANESTHESIA: Local with IV sedation. ESTIMATED BLOOD LOSS: 25 mL. DRAINS: None. INDICATIONS: Ms. Farheen Bolivar is a 48-year-old, white female, who has developed end-stage renal disease. Requires chronic hemodialysis and we are asked to place access. DESCRIPTION OF PROCEDURE: The patient was brought to the operating room. She was placed supine. Her head was turned to the left and her right neck, shoulder, and anterior chest were prepped and draped in a sterile field. She received Ancef prophylactically. Using ultrasound guidance, we accessed her right internal jugular vein between the 2 heads of the right sternocleidomastoid muscle on the first stick. A guidewire was placed through this needle into the right side of the heart. The needle was removed and I placed sequential dilators over the guidewire. I made a counter incision on the anterior right chest and using a blunt tunneler, I tunneled a pre-curved PermCath from the chest incision to the neck incision. I placed a dilator and sheath over the guidewire into the superior vena cava. I removed the dilator and guidewire and through the sheath, I placed the distal end of the pre-curved PermCath and directed it into the superior vena cava and peeled away the sheath. It was functioning well and I flushed it with heparin saline. Fluoroscopy was used to be sure that it was in good place and it was in good place and functioning well. I used a 4-0 Monocryl to close the neck incision and I used 2-0 nylon stitches to secure the catheter to the anterior right chest. Dressings were applied. She tolerated the procedure well with plans for her to go to the recovery room and then be readmitted to the hospital. cc: Sis Mejia MD
[2018-10-07] MEDS: DILAUDID IV PRN ×6 (00:12→21:18)
[2018-10-07] MEDS: TYLENOL PO PRN (05:35)
[2018-10-07 07:01] LABS: RDW 14.9 % (11.5-14.5)
[2018-10-07 07:16] LABS: HEMATOCRIT 28.4 % (37.0-47.0); MCH 27.9 PG (27-31); MCHC 31.7 g/dL (33-37); MCV 87.9 FL (81-99); MPV 11.7 FL (7.4-10.4); RBC 3.23 XMIL (4.2-5.4); WBC 14.95 X1000 (4.8-10.8)
[2018-10-07 07:48] LABS: ALBUMIN 2.8 g/dL (3.5-5.0); CALCIUM 7.8 mg/dL (8.8-10.2); CREATININE 7.2 mg/dL (0.5-0.9); PHOSPHORUS 8.1 mg/dL (2.7-4.5); POTASSIUM 3.7 mmol/L (3.5-5.1)
[2018-10-07] MEDS ORDERED: NS 2,000 ML MISC PRN (08:36)
[2018-10-07] MEDS ORDERED: TIGHT: 0.2 ML/HR FOR DIALYSIS MISC PRN (08:36)
[2018-10-07] MEDS: ROCEPHIN 1 GM in NS 50 ML IV SCH (08:36)
[2018-10-07] MEDS ORDERED: HEPARIN IV PRN (08:36)
[2018-10-07] MEDS: PRILOSEC PO SCH ×2 (08:37→21:24)
[2018-10-07] MEDS: NICODERM PATCH TD SCH (08:37)
[2018-10-07] MEDS: NEURONTIN PO SCH ×2 (08:37→21:25)
[2018-10-07] MEDS: NORCO-7.5 PO PRN ×3 (11:10→22:19)
--- NOTE | 2018-10-07 12:03 | PROGRESS NOTE ---
DATE: 10/07/2018 SUBJECTIVE: Patient continues to report generalized pain mostly localized in the abdomen. The patient has been on fentanyl patch for awhile. OBJECTIVE: Vital Signs: Temperature 98.1 degrees, heart rate 108, respiratory rate 16, blood pressure 168/91, and O2 saturation 100% on room air. General: This is a chronically ill looking and frail 48-year-old female looking older than her stated age lying in bed in no acute distress. HEENT: Head is normocephalic, atraumatic. Mucous membranes dry. Neck: No JVD noted. No carotid bruits. No lymphadenopathy. No thyromegaly. Cardiovascular: S1, S2 heard. No murmurs, gallops, or rubs. Regular rate and rhythm. Respiratory: Clear bilaterally to auscultation. No work of breathing or using accessory muscles. Abdomen: Soft, cachectic. Mild tenderness to palpation in the epigastric area. Bowel sounds present but hypoactive. No organomegaly noted. Extremities: No clubbing, cyanosis, or edema. Peripheral pulses present in both legs. Rectal: The patient has muscle wasting noted in all 4 extremities. Neurological: Patient alert and oriented x3. Moves all 4 extremities. LABORATORY DATA: Reviewed. ASSESSMENT AND PLAN: 1. Acute kidney injury. Patient undergoing hemodialysis as per Dr. Chou's recommendation. We will continue to monitor this patient. 2. 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 Dr. Miller from Oncology following this patient. 3. Chronic pain syndrome on chronic narcotic use. At this point, we will provide [place] 10 mg for this patient considering that she has been on those medications for a while. We do not want this patient to have a withdrawal at this time. We will see how this patient. 4. COPD. Patient is not on any exacerbation. We will continue to monitor this patient. 5. Urinary tract infection. We will continue with ceftriaxone. 6. Tobacco abuse. Patient advised to stop smoking. 7. Disposition. We will continue following the lead from Nephrology. cc: Arron Parker MD
[2018-10-07 14:31] LABS: HEPATITIS PROFILE ACUTE SEE COMMENTS
--- NOTE | 2018-10-07 17:44 | NEPHROLOGY PROGRESS NOTE ---
DATE: 10/07/2018 SUBJECTIVE: She is complaining of severe midepigastric pain. Narcotic doses have been decreased. OBJECTIVE: Vital Signs: Blood pressure 168/91, heart rate 108, respirations 16, afebrile. General: Thin woman. No distress. Skin: Warm and dry. Conjunctivae are pink. Neck: Neck veins are distended. Heart: Regular with a gallop. Lungs: Equal. No crackles. Abdomen: Soft, tender in the epigastrium. Bowel sounds are present. Extremities: With 2+ edema. No clubbing or cyanosis. IMPRESSION: Acute kidney injury. No recovery. Very little urine output. She is undergoing her first hemodialysis treatment today using a 3 K bath and a goal of 2 to 3 L ultrafiltration. I discussed the case with Dr. Shravan Jefferson and asked him to review the CT and see if he felt there was any role for ureteral stenting given her retroperitoneal adenopathy. cc: Dylan Chou MD
[2018-10-07] MEDS ORDERED: HALL'S COUGH LOZENGE MT PRN (23:42)
--- NOTE | 2018-10-07 23:47 | CONSULTATION ---
DATE OF CONSULTATION: 10/07/2018 ATTENDING PHYSICIAN: Hospitalist. REFERRING PHYSICIAN: [employer] (Dr. Chou). HISTORY OF PRESENT ILLNESS: This 48-year-old female has a long history of carcinoid syndrome. It is now metastatic to retroperitoneal nodes and a large area of the liver. She was admitted with renal failure and minimal urine output. A CT scan did not reveal any hydronephrosis. The patient states she has bilateral flank pains. She has a long history of chronic back pain and fibromyalgia but seems to think this is different. She states she may have seen some blood in her urine several days ago. She denies any previous urologic surgery. She has no history of kidney stones. She states she has been treated for urinary tract infections in the past. PAST MEDICAL HISTORY: As noted in the HPI. Chronic pain, anxiety, depression, COPD. CURRENT MEDICATIONS: Documented on the chart. PAST SURGICAL HISTORY: Right eye surgery, partial colectomy after trauma, cholecystectomy. SOCIAL HISTORY: No recent alcohol use. Cigarettes 1 to a half a pack a day for over 30 years. She is trying to quit. Previous use of alcohol. ALLERGIES: She is allergic to penicillin. REVIEW OF SYSTEMS: She states several weeks ago she felt she was doing well. She is followed by Oncology (Dr. Miller) and receives medicine for the carcinoid. She denies any strokes or seizures but sometimes feels very weak and hard to get up. She has no history of diabetes or heart disease. PHYSICAL EXAMINATION: General: A very thin, age apparent, white female, oriented in all ways and cooperative. HEENT: Normal for age. Lungs: With scattered rhonchi in all rendon. Cardiovascular: Regular rate and rhythm. Grade 2/6 systolic ejection murmur. Abdomen: Mildly protuberant, soft, diffuse tenderness throughout. Back: Mild CVA tenderness. Genitourinary: Deferred until surgery. Extremities: No clubbing, cyanosis, or edema. Neurologic: No focal deficits. LABORATORY EVALUATION: He has a white count of 14.95, hemoglobin 9.0, hematocrit 28.4, and platelets are 130,000. Serum electrolytes have a sodium of 137, potassium 3.7, chloride 102, bicarb 16, BUN 54, creatinine 7.2, several weeks ago it was 0.7. CT stone search and renal ultrasound of 04 October reveals no hydronephrosis but the liver lesion and retroperitoneal lymphadenopathy were noted. IMPRESSION: 1. Renal failure with marked decreased urine output. 2. Metastatic carcinoid cancer. 3. No hydronephrosis noted on the CT scan or renal ultrasound. 4. Bilateral flank pain, possibly due to obstructed ureters. PLAN: Cystoscopic exam, bilateral retrograde ureteral pyelograms. Attempt placing bilateral double-J stents. The planned procedure, benefits versus risks and possible complications, including not changing renal function, not being able to place the stent, not relieving the flank pain, need for further surgery or studies was discussed. She seems to understand and desires to proceed. cc: Mahendra Jefferson MD
[2018-10-08] MEDS: DILAUDID IV PRN ×5 (01:21→22:08)
[2018-10-08 06:45] LABS: HEMATOCRIT 27.4 % (37.0-47.0); HEMOGLOBIN 8.6 g/dL (12.0-16.0); MCH 27.7 PG (27-31); MCHC 31.4 g/dL (33-37); MCV 88.4 FL (81-99); MPV 11.4 FL (7.4-10.4); RBC 3.1 XMIL (4.2-5.4); RDW 14.7 % (11.5-14.5); WBC 14.2 X1000 (4.8-10.8)
[2018-10-08] MEDS ORDERED: NS 2,000 ML MISC PRN (06:59)
[2018-10-08] MEDS ORDERED: HEPARIN IV PRN (06:59)
[2018-10-08 07:13] LABS: ALBUMIN 2.7 g/dL (3.5-5.0); CALCIUM 8.2 mg/dL (8.8-10.2); CREATININE 4.2 mg/dL (0.5-0.9); PHOSPHORUS 5.1 mg/dL (2.7-4.5); POTASSIUM 3.2 mmol/L (3.5-5.1)
[2018-10-08] MEDS ORDERED: DIPRIVAN 1% ONE (07:43)
[2018-10-08] MEDS ORDERED: VERSED ONE (07:43)
[2018-10-08] MEDS ORDERED: FENTANYL ONE (07:43)
[2018-10-08] MEDS ORDERED: XYLOCAINE-MPF 2% ONE (07:46)
[2018-10-08] MEDS ORDERED: NEOSPORIN G.U. IRRIGANT ONE (07:56)
[2018-10-08] MEDS ORDERED: ZOFRAN ONE (08:08)
[2018-10-08] MEDS ORDERED: DECADRON ONE (08:08)
[2018-10-08] MEDS: ROCEPHIN 1 GM in NS 50 ML IV SCH (08:18)
[2018-10-08] MEDS: DILAUDID ONE ×4 (09:23→09:58)
[2018-10-08] MEDS ORDERED: SODIUM CHLORIDE 0.9% 10 ML ONE (09:51)
[2018-10-08] MEDS ORDERED: PHENERGAN ONE (09:51)
--- NOTE | 2018-10-08 14:38 | PROGRESS NOTE ---
DATE: 10/08/2018 SUBJECTIVE: Patient reports still complaining of back pain. Every single day since admission, she is complaining of pain and requesting pain medication on each visit. OBJECTIVE: Vital Signs: Temperature 97.9 degrees, heart rate 115, blood pressure 116/64, O2 saturation 97% on room air. General Examination: This is a chronically ill-appearing 48-year-old female lying in bed, in no acute distress. HEENT: Head is normocephalic and atraumatic. Neck: No JVD noted. No carotid bruits. No lymphadenopathy. No thyromegaly. Cardiovascular: S1 S2 heard. No murmurs, gallops, or rubs. Regular rate and rhythm. Respiratory: Clear bilaterally to auscultation. No work of breathing noted or using accessory muscles. Abdomen: Soft. Nontender to palpation. Bowel sounds present. No organomegaly. Extremities: No clubbing, cyanosis, or edema. Peripheral pulses present in both legs. Neurological: Patient is alert and oriented x 3. Moves all extremities. LABORATORY DATA: Reviewed. ASSESSMENT AND PLAN: 1. Acute kidney injury. The patient requiring hemodialysis at Dr. Chou recommendation. Dr. Jefferson from Neurology has been consulted for history of metastatic carcinoid cancer. Even though there was no hydronephrosis noted in the CT scan or renal ultrasound, the patient complains of bilateral flank pain possibly due to obstructed ureters so at this point urology has decided to do cystoscopy. We will follow recommendations. 2. Chronic pain syndrome on chronic narcotic use. Unfortunately, this patient continued to request as we mentioned before. Every single day she reports that she is hurting and we need to increase the doses of these medications. At this point, we are going to increase the dose of [place] from 7.5 to 10 every 4 hours p.r.n. and we will see how this patient does. 3. COPD. Patient is not in any exacerbation. We will continue with breathing treatments every 4 hours. 4. Urinary tract infection. Patient on antibiotics as above. 5. Tobacco abuse. Patient advised to stop smoking. 6. Disposition. We will continue to monitor this patient closely. From a nephrology standpoint, we will continue with dialysis and we will wait for results of those exams recommended by Nephrology. cc: Arron Parker MD
[2018-10-08] MEDS: NICODERM PATCH TD SCH (14:39)
[2018-10-08] MEDS: PRILOSEC PO SCH ×2 (14:39→22:11)
[2018-10-08] MEDS: NEURONTIN PO SCH ×2 (14:40→22:12)
--- NOTE | 2018-10-08 15:24 | OPERATIVE NOTE ---
PROCEDURE DATE: 10/08/2018 SURGEON: Mahendra Jefferson MD PREOPERATIVE DIAGNOSIS: Renal failure with decreased urine output. POSTOPERATIVE DIAGNOSIS: Renal failure with decreased urine output with probable renal lithiasis. PROCEDURE PERFORMED: Cystoscopic exam, bilateral retrograde ureteral pyelograms, left ureteroscopy, place left double-J stent. ANESTHESIA: General via laryngeal mask. FINDINGS: Cystoscopic exam: Urethra-greater than 21 Mauritanian without stricture. Bladder-normal ureteral orifices bilaterally. No papillary lesions. No trabeculations. Right retrograde ureteral pyelogram normal without filling defect. No evidence of obstruction. Left retrograde ureteral pyelogram also has no evidence of obstruction. However there is a persistent filling defect in the left proximal ureter. Left ureteroscopy reveals a normal collecting system. If this was a stone, it could have been washed back into the kidney. exam. Normal external female. Normal mucosa. No adnexal masses. Palpably normal bladder. INDICATION FOR PROCEDURE: This 48-year-old female with metastatic carcinoid has renal failure. DESCRIPTION OF PROCEDURE: After informed consent was obtained from the patient and her receiving IV antibiotics, she was taken to the main OR cystoscopy room, placed in the supine position. General anesthesia via laryngeal mask was achieved. She was then placed in the low lithotomy position and prepped and draped in the usual sterile fashion for cystoscopic exam. A 21-Mauritanian cystoscope was passed the patient's urethra and in bladder, findings noted above. An 8-Mauritanian cone-tipped catheter was passed through the cystoscope, engaged the right ureteral orifice. Contrast was injected. Again, no filling defects or evidence of obstruction was visualized on the left side. Again, there was a filling defect in the left proximal ureter just distal to the ureteropelvic junction but no evidence of obstruction. The 8-Mauritanian cone-tipped catheter was removed. A 0.035 ZIPwire was passed through the cystoscope, engaged left ureteral orifice, advanced up into the kidney. The cystoscope was removed leaving the ZIPwire in place to act as a safety wire. A 7-Mauritanian Storz semi-rigid ureteroscope was advanced through the patient's urethra and in the bladder. A 0.035 Sensor wire was passed through the ureteroscope and into the ureter. The ureteroscope was advanced over the Sensor wire and into the ureter and advanced up to the proximal ureter. The area where the filling defect was visualized was carefully inspected and no abnormalities were visualized. The ureteroscope was removed. A 6-Mauritanian, 22 cm double-J stent was passed over the ZIPwire and up into the kidney. The renal end was verified by fluoroscopic exam, bladder end directly visualized. The stent removal string was removed. The bladder was left distended. The cystoscope was removed. A 16-Mauritanian Viramontes catheter was passed through the patient's urethra and into the bladder. 10 mL sterile water were placed in Viramontes's balloon. Viramontes was placed to gravity drain. exam performed. She tolerated the procedure well. Estimated blood loss less than 1 mL. She was taken to recovery room in good condition. cc: Mahendra Jefferson MD
[2018-10-08] MEDS: NORCO-10 PO PRN ×3 (15:30→22:34)
--- NOTE | 2018-10-08 16:22 | NEPHROLOGY PROGRESS NOTE ---
DATE: 10/08/2018 SUBJECTIVE: She is in less pain today. OBJECTIVE: Vital Signs: Blood pressure 102/85, heart rate 111, respirations 20, afebrile. General: No acute distress. Skin: Warm and dry. Neck: Neck veins are not distended. Heart: Regular with an S4. Lungs: Equal with wheezes present. Abdomen: Benign. Extremities: Have less edema. No clubbing or cyanosis. IMPRESSION: Acute kidney injury. Presumably acute tubular necrosis. No obstruction on her retrogrades today. She did end up with a stent on the left because of retained stone. Tolerated dialysis. No changes. cc: Dylan Chou MD
[2018-10-09] MEDS: DILAUDID IV PRN ×6 (02:07→23:19)
[2018-10-09] MEDS: NORCO-10 PO PRN ×2 (02:30→08:12)
[2018-10-09 06:19] LABS: HEMATOCRIT 28.8 % (37.0-47.0); HEMOGLOBIN 8.7 g/dL (12.0-16.0); MCH 27.3 PG (27-31); MCHC 30.2 g/dL (33-37); MCV 90.3 FL (81-99); MPV 10.7 FL (7.4-10.4); RBC 3.19 XMIL (4.2-5.4); RDW 14.6 % (11.5-14.5); WBC 16.4 X1000 (4.8-10.8)
[2018-10-09 06:41] LABS: ALBUMIN 2.6 g/dL (3.5-5.0); CALCIUM 8.3 mg/dL (8.8-10.2); CREATININE 3.3 mg/dL (0.5-0.9); PHOSPHORUS 4.7 mg/dL (2.7-4.5); POTASSIUM 3.6 mmol/L (3.5-5.1)
[2018-10-09] MEDS: NEURONTIN PO SCH ×2 (08:11→20:42)
[2018-10-09] MEDS: PRILOSEC PO SCH ×2 (08:11→20:42)
[2018-10-09] MEDS: ROCEPHIN 1 GM in NS 50 ML IV SCH (08:12)
[2018-10-09] MEDS: NICODERM PATCH TD SCH (08:12)
--- NOTE | 2018-10-09 11:39 | PROGRESS NOTE ---
DATE: 10/09/2018 SUBJECTIVE: Patient reports still complaining of back pain. She requested specifically to increase the doses of Dilaudid from 0.5 to 1 mg, same frequency. No other complaints noted. OBJECTIVE: Vital Signs: Temperature 98.6 degrees, heart rate 113, respiratory rate 20, blood pressure 119/77, O2 saturation 94% on room air. General Examination: This is a chronically ill appearing and frail, 48-year-old, female lying in bed, in no acute distress. Cardiovascular Examination: S1 and S2 heard. No murmurs, gallops, or rubs. Regular rate and rhythm. Respiratory Examination: Clear bilaterally to auscultation. No work of breathing or using accessory muscles. Abdomen: Soft. Nontender to palpation. Bowel sounds present. No organomegaly. Extremities: No clubbing, cyanosis, or edema. Peripheral pulses present in both legs. Neurological Examination: The patient is alert and oriented x3. Moves 4 extremities. Laboratory Data: Reviewed. ASSESSMENT AND PLAN: 1. Acute kidney injury requiring hemodialysis. Dr. Chou following this patient. Also, we have requested a urology evaluation for possible obstruction. Dr. Jefferson has performed a cystoscopy with bilateral retrograde ureteropyelograms. Apparently, there was a stone retained and they placed a stent in the left side. At this point, we will continue monitoring this patient closely. 2. Chronic pain syndrome on chronic narcotic use. Unfortunately, this patient keeps asking for pain medications every single day. At this point, considering that, according to her, [place] is not working well, are going to stop it. We are going to increase the dose of Dilaudid while she is here to 1 mg intravenous every 3 hours just for next 24 to 48 hours and then we will stop it and change to oral. 3. Chronic obstructive pulmonary disease. The patient is not in any exacerbation. We will continue with breathing treatment as needed only. 4. Urinary tract infection. The patient is on antibiotics as above; in this case, ceftriaxone. 5. Tobacco abuse. Patient advised to stop smoking. 6. Disposition. At this point, we will continue to monitor this patient closely. cc: Arron Parker MD
[2018-10-09] MEDS: TYLENOL PO PRN (20:42)
[2018-10-10] MEDS: DILAUDID IV PRN ×5 (03:01→20:29)
[2018-10-10] MEDS ORDERED: HEPARIN IV PRN (05:54)
[2018-10-10] MEDS ORDERED: TIGHT: 0.2 ML/HR FOR DIALYSIS MISC PRN (05:54)
[2018-10-10] MEDS ORDERED: NS 2,000 ML MISC PRN (05:54)
[2018-10-10 06:12] LABS: HEMATOCRIT 28.3 % (37.0-47.0); HEMOGLOBIN 8.6 g/dL (12.0-16.0); MCH 27.8 PG (27-31); MCHC 30.4 g/dL (33-37); MCV 91.6 FL (81-99); MPV 11.8 FL (7.4-10.4); RBC 3.09 XMIL (4.2-5.4); RDW 14.4 % (11.5-14.5); WBC 11.07 X1000 (4.8-10.8)
[2018-10-10 06:59] LABS: ALBUMIN 2.5 g/dL (3.5-5.0); CALCIUM 8.1 mg/dL (8.8-10.2); CREATININE 4.3 mg/dL (0.5-0.9); POTASSIUM 3.2 mmol/L (3.5-5.1)
--- NOTE | 2018-10-10 08:16 | Diag Imaging Result Doc PS360 ---
EXAM: RETROGRADES 2 OR 3 FILMS 10/08/2018 HISTORY: ABD PAIN L CYSTOSCOPY TECHNIQUE: 38 images. COMMENT: There is no evidence of obstruction or filling defect on the right. There is a bifid collecting system on the left. Ureteroscopy was performed on the left with placement of a stent into the upper pole moiety. IMPRESSION: Left ureteral stent placement. Electronically signed by Filemon Robert 10/10/2018 8:13 AM
[2018-10-10] MEDS ORDERED: SANDOSTATIN INJ ONE (10:10)
[2018-10-10] MEDS ORDERED: SANDOSTATIN SUBQ ONE (10:10)
--- NOTE | 2018-10-10 10:48 | NEPHROLOGY PROGRESS NOTE ---
DATE: 10/10/2018 TIME SEEN: 0650 SUBJECTIVE: Ms. Bolivar is resting quietly in bed. She is sitting upright. States that she is just not feeling great, though nonspecific. OBJECTIVE: Vital Signs: Temperature 97.9 degrees, blood pressure 135/90, heart rate 100, respirations 18, she is on room air, last recorded saturation 99%. Intake and output: She has had 2240 in, 100 out to Viramontes catheter in the last 48 hours. Laboratory Data: Sodium 139, potassium 3.2, chloride 104, CO2 of 22, BUN of 22, creatinine 4.3, glucose 111, anion gap of 13, calcium 8.1, phosphorus 5, albumin 2.5. Her white count is 11, hemoglobin 8.6, hematocrit 28.3, with a platelet count of 113,000. PHYSICAL EXAMINATION: General: This is a 48-year-old white female resting quietly in bed. Head of the bed is elevated. She is in no acute distress, though she appears chronically ill. Skin: Warm and dry. HEENT: Normocephalic, atraumatic. Conjunctiva is pale. She has DEB. Mucous membranes are dry. Neck: Supple. Trachea midline. She has no JVD. Cardiovascular: She has regular rate and rhythm. She has an S4. Lungs: Clear to auscultation bilaterally. Equal excursion. She is on room air. Abdomen: Soft, nontender. Positive bowel sounds. Genitourinary: Not inspected. It is noted she has only had 100 mL out in the last 48 hours. Extremities: Have no edema. No clubbing or cyanosis. Integumentary: She has a tunnelled catheter to the right chest wall. Neurological: She is alert and oriented x3. ASSESSMENT AND PLAN: 1. Acute kidney injury. No recovery. Very little urine output. The patient has been started on dialysis last week. She is due for her dialysis treatment again today. We have discussed primary findings with the patient with possible cause of ATN for her acute kidney injury due to possible underlying causes. We have discussed having a renal biopsy today. The patient is in agreement. We have discussed risks and benefits. We have notified CT. They will plan for renal biopsy per CT-guided wire after her hemodialysis treatment this a.m. We will place her on dialysis. She is to be on a 3-1/2 hours, 3 K bath. We will dialyze 1 to 2 L of ultrafiltration as tolerated. 2. Electrolytes and acid-base balance, with correction on dialysis. 3. Anemia. This remains low but stable. 4. The patient had a cystoscope performed per Dr. Jefferson. She had a left retrograde ureteral pyelogram with no evidence of obstruction. 5. Renal biopsy orders are in the chart. The patient is to get labs. We will plan for biopsy with guided wire per CT after her dialysis this a.m. I would like to thank you for allowing us to follow with this patient. Dictated by LEE ANN Lopez for Dylan Chou MD Face to face encounter, data reviewed, discussed with Tre Diane. I agree with the above assessment and plan of care. cc: LEE ANN Lopez MD [facility]
[2018-10-10 13:08] LABS: INR 0.9; PROTIME 12.8 Seconds (11.0-16.0)
[2018-10-10 13:09] LABS: PTT 31.8 Seconds (22.3-41.8)
--- NOTE | 2018-10-10 13:39 | PROGRESS NOTE ---
DATE: 10/10/2018 SUBJECTIVE: Patient continues to report back pain. No other complaints noted. Not making any urine yet. OBJECTIVE: Vital Signs: Temperature 98.1 degrees, heart rate 96, respiratory rate 16, blood pressure 131/83. O2 saturation 96% on room air. General: This is a chronically ill-appearing and frail 48-year-old female lying in bed, in no acute distress. Cardiovascular: S1, S2 heard. No murmurs, gallops, or rubs. Regular rate and rhythm. Respiratory: Clear bilaterally to auscultation. No work of breathing or using accessory muscles. Abdomen: Soft. Nontender to palpation. Bowel sounds present. No organomegaly. Extremities: No clubbing, cyanosis, or edema. Peripheral pulses present in both legs. Neurological: Patient is alert oriented x3. Moves 4 extremities. LABORATORY DATA: There is no labs from today, but renal profile shows potassium 3.2, creatinine 1.3. ASSESSMENT AND PLAN: 1. Acute kidney injury requiring hemodialysis. Dr. Chou is following this patient. Urology has evaluated this patient and no obstruction has been found. Because of a retained stone, a stent was placed in the left ureter. At this point, we will continue with dialysis. The patient is not making urine yet. We will continue to monitor. 2. Chronic pain syndrome on chronic narcotic use. At this point, even though this patient is still complaining of pain, he has been requested to increase the dose of pain medication. We will continue to monitor. 3. COPD. Patient is not on any exacerbation. We will continue to monitor to provide breathing treatments as needed only. 4. Urinary tract infection. Patient on antibiotics, as above. In this case, ceftriaxone. Urine culture is negative, but I prefer to continue treating this patient at least for a week considering that she was found to have a renal stone. 5. Disposition. We will continue to monitor this patient closely and following leads from Nephrology. cc: Arron Parker MD
--- NOTE | 2018-10-10 15:10 | Diag Imaging Result Doc PS360 ---
CT RENAL BX, IRVIN - 10/10/2018 INDICATION: oliguric, on HD TECHNIQUE: The risks and benefits of the procedure were discussed with the patient. All questions were answered. Written and verbal informed consent was obtained. Overlying skin was prepped and draped in sterile fashion. Anesthesia was achieved with injection of 10 cc of 1% lidocaine. COMPARISON: None FINDINGS: The left kidney was biopsied at the lower pole. Eight biopsy specimens were obtained. These were reviewed by pathology and found to be sufficient. The needles were drawn intact. The patient reported no symptoms from the procedure. IMPRESSION: Successful and uncomplicated CT-guided left renal biopsy. Electronically signed by Robert Yee 10/10/2018 3:08 PM
[2018-10-10] MEDS: NICODERM PATCH TD SCH (16:35)
[2018-10-10] MEDS: PRILOSEC PO SCH ×2 (16:35→20:28)
[2018-10-10] MEDS: NEURONTIN PO SCH ×2 (16:38→20:29)
[2018-10-10] MEDS: ROCEPHIN 1 GM in NS 50 ML IV SCH (16:41)
[2018-10-10] MEDS: TYLENOL PO PRN (18:16)
[2018-10-11] MEDS: DILAUDID IV PRN ×4 (00:38→13:20)
[2018-10-11 06:26] LABS: HEMATOCRIT 29.6 % (37.0-47.0); MCH 27.6 PG (27-31); MCHC 30.4 g/dL (33-37); MCV 90.8 FL (81-99); MPV 10.6 FL (7.4-10.4); RBC 3.26 XMIL (4.2-5.4); RDW 14.1 % (11.5-14.5); WBC 10.91 X1000 (4.8-10.8)
[2018-10-11 06:45] LABS: ALBUMIN 2.7 g/dL (3.5-5.0); CALCIUM 8.1 mg/dL (8.8-10.2); PHOSPHORUS 4.2 mg/dL (2.7-4.5); POTASSIUM 3.3 mmol/L (3.5-5.1)
[2018-10-11 07:24] VITALS: BP 130/79
[2018-10-11] MEDS: NICODERM PATCH TD SCH (09:28)
[2018-10-11] MEDS: NEURONTIN PO SCH (09:28)
[2018-10-11] MEDS: PRILOSEC PO SCH (09:28)
[2018-10-11] MEDS: ROCEPHIN 1 GM in NS 50 ML IV SCH (09:28)
--- NOTE | 2018-10-11 09:52 | NEPHROLOGY PROGRESS NOTE ---
DATE: 10/11/2018 TIME SEEN: 0645. SUBJECTIVE: Ms. Bolivar is sitting up in bed. She states that she had no difficulties after her renal biopsy yesterday. Denies any pain or increased work of breathing, just generalized pain that she routinely has. OBJECTIVE: Vital Signs: Her most recent vital signs, her last temperature 97.8 degrees, blood pressure 122/80, heart rate 98, respirations 19. She is on room air. Last recorded saturation is 96%. She has had 0 recorded in. She has had 1000 mL recorded out on dialysis. Laboratory Data: Sodium is 136, potassium 3.3, chloride is 99, CO2 26, BUN 11, creatinine 3, glucose 103, her anion gap is 11, her calcium is 8.1, phosphorus 4.2, albumin 2.7. White count 10.91, hemoglobin 9, hematocrit 29.6, with a platelet count of 114,000. The patient had a prothrombin time of 12.8 with an INR of 0.9 and a PTT of 31.8 prior to her renal biopsy. It does appear that the patient's hemoglobin did drop from 10.5 to 8.6 to 8.3, but is back up to 9 today. No indications for intervention. ASSESSMENT AND PLAN: 1. Acute kidney injury. Patient, at this time, has not had any recovery. Decreased urinary output remains. She has a tunneled catheter to the right chest wall. We have discussed outpatient assignment at the [facility]. We will get our staff to prepare an outpatient appointment for her to start outpatient dialysis. 2. Status post renal biopsy. The patient tolerated this well. Hemoglobin had recovered. We have discussed possible results in the next 24 to 48 hours, and that we will call her and let her know these results and if there are any further indications for intervention. 3. Electrolytes, acid-base balance. These remain fairly stable with, again, correction on dialysis. 4. Anemia. This remains low but stable. 5. Chronic pain secondary to her chronic pain syndrome associated with her cancer with metastasis. The patient states that this is being followed by Dr. Miller. We have instructed that she should not to continue on fentanyl. This is not good for a dialysis patient and we will defer to the primary care team for discharge orders since her pain has been controlled during her hospitalization with gabapentin 200 mg twice a day and iv dilaudid. We will defer to the primary care team for discharge medication and then for the patient to follow up with Dr. Miller for continued treatment. I would like to thank you for allowing us to follow with this patient. Dictated by LEE ANN Lopez for Dylan Chou MD Face to face encounter, data reviewed, discussed with Tre Diane on 10/11/18. I agree with the above assessment and plan of care. cc: LEE ANN Lopez MD [facility]
--- NOTE | 2018-10-11 17:57 | DISCHARGE SUMMARY ---
ADMISSION DATE: 10/04/2018 DISCHARGE DATE: 10/11/2018 CONSULTATIONS: 1. Dr. Chou with Nephrology. 2. Dr. Mejia with General Surgery. 3. Dr. Mahendra Jefferson with Urology. 4. Dr. Miller. PERTINENT PROCEDURES: 1. Abdomen and pelvis CT. Mass at the posterior aspect of the right hepatic lobe seen previously inhibits lower attenuation centrally suggesting advancing necrosis. Stable periaortic lymphadenopathy likely stool in the colon indicating diarrheal illness with nonspecific fluid filled loops of small bowel. No sign of obstruction. Interval development of trace ascites tracking around the liver. Abdomen and pelvis are essentially stable otherwise. 2. Abdominal ultrasound shows no mass in the posterior inferior aspect of the right hepatic lobe, has increased in size as previous ultrasound in 2018. Dilated common bile duct probably at least in part due to post cholecystectomy status. 3. Right IJ PermCath using ultrasound and fluoroscopy performed by Dr. Mejia. 4. Cystoscopic exam, bilateral retrograde urethral pyelograms, left ureteroscopy, and placement of a left double-J stent performed by Dr. Mahendra Jefferson. DISCHARGE DIAGNOSES: 1. Acute kidney injury. The patient has had no recovery. Decreased urinary output remains. She has been receiving hemodialysis in the hospital. Nephrology has discussed outpatient assignment at the [facility]. They will get their staff to prepare an outpatient appointment for her to start her outpatient dialysis. 2. Status post renal biopsy. She has remained stable. Nephrology will call to let her know the results. 3. Anemia remains low but stable. 4. 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 The patient is on Sandostatin for carcinoid syndrome. 5. Chronic pain with chronic opioid abuse. HOSPITAL COURSE: Briefly, Ms. Bolivar is a 48-year-old female who is well known to Dr. Miller with a history of a carcinoid tumor of the liver. She has been maintained on Sandostatin secondary to carcinoid syndrome. She was last given a dose on 06/14/2019. She also has chronic pain associated with her illness, and history of chronic opiate and narcotic abuse. On the day of admission, the patient had been seen by Dr. Miller in his clinic for IV pain medications and hydration. They are wanting her to receive additional prescription of pain medications. They were attempting to get a urine drug screen. However, they were only able to straight cath with 7 mL of urine. She was referred to [facility], and was admitted for acute kidney injury with insufficiency with a creatinine of 4.8. Dr. Chou followed along as well as Dr. Jefferson. She did not have any recovery in her kidney function or urine output. Dr. Mejia did put in a PermCath. She was initiated on hemodialysis. She also underwent a cystoscopic exam with bilateral retrograde urethral pyelograms in the left ureteroscopy with placement of left double-J stent by Dr. Jefferson. She also underwent a renal biopsy that Dr. Chou will discuss the results in 24 to 48 hours. She has had no recovery in her acute kidney injury. She continues to have decreased urine output. They have discussed with her outpatient assignment at the [facility]. Nephrology will prepare to have the staff to prepare an outpatient appointment for her to start outpatient dialysis. Her electrolytes acid base are fairly stable. Her anemia is low but stable. Again, she continues to complain of chronic pain secondary to her chronic pain syndrome associated with her metastatic cancer. She has been instructed by Nephrology that she is not to continue on fentanyl, that it is not good for dialysis patients. She has been controlled during her hospitalization with gabapentin 200 mg twice a day, and will continue with further medication regimen per Dr. Miller. She is being discharged back home today to continue with her outpatient hemodialysis. VITAL SIGNS: At time of discharge, temperature 98.6 degrees, heart rate 102, respirations 21, blood pressure 130/79, and O2 is 96% on room air. DISCHARGE DIET: Renal. DISCHARGE MEDICATIONS: 1. Afinitor 10 mg p.o. daily. 2. [place] 10/325 one each p.o. t.i.d. p.r.n. 3. Sandostatin 1 mL IM as directed. 4. Potassium chloride 20 mEq p.o. daily. 5. Tylenol 650 mg p.o. q.6 hours p.r.n. 6. Neurontin 100 mg p.o. b.i.d. 7. NicoDerm patch 7 mg TD daily. 8. Protonix 40 mg p.o. daily. FOLLOW-UP: Ms. Bolivar is being discharged back home with self care. She is to continue hemodialysis under the direction of Dr. Chou with her outpatient clinic in [place]. She will continue to follow up with Dr. Miller. Again, she has been educated not to use her fentanyl patches as it is not good for her renal disease. She will continue on her home [place] and gabapentin, which has controlled her throughout her hospital stay. She can return to the ED or call 911 for any worsening of symptoms. Dictated by LEE ANN Calderon for Arron Parker MD Addendum: Patient seen and examined by myself. Agree with [employer] MA[employer]GER note. It reflects my assessment and plan. Patient is being discharged in stable condition. She will continue with outpatient dialysis. Will be seen by Dr. Chou in the office. cc: MD Anson Sparrow MD Reginald D. Gladish, MD Lynn R. Buckner, MD MTDD
== END 2018-10-11 14:54 | disposition home or self-care (01) | DRG 660 ==
LOC: SUPCPDRO → ED 06:41 → EDIPHOLD 14:56 → 3S 16:25 → 4N 10-06 12:48
PROVIDERS: ATTEND Internal Medicine
CPT/HCPCS: 50200; 51702; 71010; 71045; 74176; 74420; 76700; 77001; 80053; 80069; 80074; 80101; 80301; 80307; 80324; 80345; 80346; 80353; 80358; 80361; 80365; 81001; 82570; 82805; 83605; 83735; 83992; 84100; 84300; 84540; 85018; 85025; 85027; 85610; 85730; 87040; 87088; 88300; 94761; 94799; 96361; 96365; 96375; 96376; 99285; A9270; C1750; G0431; G0434; G0479; G0480; J0696; J1100; J1170; J1644; J2250; J2354; J2405; J2550; J3010; J3480; J7030; J7040; J7050; J7070; Q9966; Q9967

== ENCOUNTER 2018-10-24 10:00 | Inpatient (IN) ==
[2018-10-24 13:29] LABS: ALLEN TEST NO; BE -22.3 mmoll (-3.0-3.0); BLOOD TYPE ARTERIAL; METHB 0.6 % (0.0-1.5); O2(CT) 13.8 mL/dL (15.0-23.0); O2HB 93.8 % (95.0-99.0); PO2(98.6) 80 mmHg (60-100); SAMPLE BLOOD; SAO2 96.7 % (95.0-100.0); THB 10.4 g/dL (11.5-17.4)
[2018-10-24 13:31] LABS: HCO3-(ACT) 7.5 mmoll (20.0-26.0); MODALITY ROOM AIR; PCO2(98.6) 25 mmHg (35-45); pH(98.6) 7.04 (7.35-7.45)
--- NOTE | 2018-10-24 13:40 | Diag Imaging Result Doc PS360 ---
CHEST-1 VIEW - 10/24/2018 INDICATION: SOB COMPARISON: 10/04/2018 FINDINGS: There is a right-sided dialysis catheter in good position with the distal tip at the lower SVC. The lungs are clear. Heart size is normal. No pneumothorax or pleural effusion. There are stable nipple shadows in the lung bases. IMPRESSION: Negative exam. Electronically signed by Robert Yee 10/24/2018 1:37 PM
[2018-10-24 13:48] LABS: BASO# 0.03 X1000 (0.0-0.2); BASO% 0.1 % (0.0-0.8); EOS# 0.04 X1000 (0.0-0.7); EOS% 0.2 % (0.0-10.0); HEMATOCRIT 32.6 % (37.0-47.0); HEMOGLOBIN 10.5 g/dL (12.0-16.0); IMM GRAN# 0.81 X1000 (0.0-0.04); IMM GRAN% 3.2 % (0.0-0.5); LYMPH# 1.35 X1000 (1.2-3.4); LYMPH% 5.3 % (20.5-51.1); MCHC 32.2 g/dL (33-37); MCV 83.8 FL (81-99); MONO# 1.58 X1000 (0.11-0.59); MONO% 6.1 % (1.7-9.3); MPV 11.2 FL (7.4-10.4); NEUT% 85.1 % (42.2-75.2); PLT 166 X1000 (130-400); RBC 3.89 XMIL (4.2-5.4); RDW 15.7 % (11.5-14.5); WBC 25.71 X1000 (4.8-10.8)
--- NOTE | 2018-10-24 13:51 | EKG Report ---
Test Performed on : 10/24/2018 1:26:42 PM Test Reason : CP Blood Pressure : / mmHG Vent. Rate : 108 BPM Atrial Rate : 108 BPM P-R Int : 158 ms QRS Dur : 080 ms QT Int : 366 ms P-R-T Axes : 080 082 059 degrees QTc Int : 490 ms Sinus tachycardia. Otherwise normal ECG No previous ECGs available Unconfirmed Result
[2018-10-24 14:17] LABS: BANDS 1 % (0-1); LYMPHS 4 % (21-51); MONO 7 % (1-9); SEGS 88 % (42-75)
[2018-10-24 14:35] LABS: AGAP 33; ALB/GLOB RATIO 1.1; ALBUMIN 3.3 g/dL (3.5-5.0); ALKALINE PHOSPHATASE 126 U/L (32-104); BUN 72 mg/dL (8-22); CALCIUM 7.6 mg/dL (8.8-10.2); CHLORIDE 100 mmol/L (98-107); COSMO 297; CREATININE 6.9 mg/dL (0.5-0.9); ESTIMATED GFR 6; GLUCOSE 76 mg/dL (70-104); GOT 32 U/L (10-30); GPT 27 U/L (10-36); POTASSIUM 3.7 mmol/L (3.5-5.1); SODIUM 139 mmol/L (136-145); TCO2 6 mmol/L (25-35); TOTAL BILIRUBIN < 0.15 mg/dL (0.20-1.00); TOTAL PROTEIN 6.2 g/dL (6.3-8.3)
--- NOTE | 2018-10-24 14:59 | EKG Report ---
Test Performed on : 10/24/2018 10:55:29 AM Test Reason : ED. NO EKG ORDER FOR MUSE Blood Pressure : / mmHG Vent. Rate : 109 BPM Atrial Rate : 109 BPM P-R Int : 156 ms QRS Dur : 080 ms QT Int : 378 ms P-R-T Axes : 075 073 035 degrees QTc Int : 509 ms Sinus tachycardia. Septal infarct (cited on or before 07-MAY-2013) Abnormal ECG When compared with ECG of 26-SEP-2018 14:51, (Unconfirmed) Nonspecific T wave abnormality now evident in Inferior leads T wave amplitude has decreased in Anterior leads Unconfirmed Result
[2018-10-24 15:08] LABS: URINE SOURCE CLEAN CATCH
[2018-10-24 15:22] LABS: BILIRUBIN URINE NEGATIVE (NEGATIVE); BLOOD URINE LARGE (NEGATIVE); COLOR BROWN; GLUCOSE URINE NEGATIVE (NEGATIVE); KETONE URINE NEGATIVE (NEGATIVE); LEUKOCYTES URINE LARGE (NEGATIVE); NITRITE URINE NEGATIVE (NEGATIVE); PROTEIN URINE 300 mg/dL (NEGATIVE); SP GRAVITY URINE 1.024; TURBIDITY URINE TURBID (CLEAR); UR EPITHELIAL CELLS <10 /HPF (<10); URINE BACTERIA NEGATIVE /HPF; URINE RBC TNTC /HPF (<10); URINE WBC TNTC /HPF (<10); UROBILINOGEN URINE NORMAL (NORMAL)
[2018-10-24 15:24] LABS: URINE CASTS NONE SEEN
[2018-10-24] MEDS: ROCEPHIN 1 GM in NS 50 ML IV ONE ×2 (15:46→17:00)
[2018-10-24] MEDS ORDERED: SODIUM BICARBONATE PO ONE (16:00)
[2018-10-24] MEDS ORDERED: VANCOMYCIN 1 GM/NS 1 GM/250 ML IVPB IV ONE ×2 (16:02→18:30)
[2018-10-24] MEDS ORDERED: SODIUM BICARBONATE 8.4% IV PUSH ONE (16:05)
[2018-10-24 16:28] LABS: ACETAMINOPHEN 11.1 ug/mL (10-30); SALICYLATES < 3.00 mg/dL (3-10)
[2018-10-24 16:30] LABS: ACETONE SERUM SMALL (NEGATIVE)
[2018-10-24] MEDS ORDERED: NS 1,000 ML IV ONE (16:35)
[2018-10-24] MEDS ORDERED: NS 1,000 ML ONE (16:36)
--- NOTE | 2018-10-24 16:37 | PROVIDER DOCUMENTATION ---
This chart was entered by Mabel Howard Scribe, acting as scribe for Bill Pereira CRNP. HPI-General Adult - General Chief Complaint: Weakness Stated Complaint: WEAKNESS Time Seen by Provider: 10/24/18 12:51 Source: patient Allergies/Adverse Reactions: Patient Allergies Allergy/AdvReac Type Severity Reaction Status Date / Time Penicillins Allergy Intermediate HIVES Verified 08/23/18 13:01 Home Medications: Home Medication List Medication Instructions Recorded Confirmed Last Taken Type Pantoprazole [Protonix] 40 mg PO DAILY@0700 30 Days #30 tab 09/09/18 10/04/18 10/03/18 Rx Everolimus [Afinitor] 10 mg PO DAILY 09/26/18 10/04/18 10/03/18 History Hydrocodone/Acetaminophen [[place] 1 each PO TID PRN PRN 09/26/18 10/04/18 10/03/18 History 10-325 Tablet] Potassium Chloride 20 meq PO DAILY 09/26/18 10/04/18 10/04/18 History Gabapentin [Neurontin] 100 mg PO BID #120 cap 09/27/18 10/04/18 10/03/18 Rx Nicotine Patch [Nicoderm Patch] 7 mg TD DAILY [id number] 09/27/18 10/04/18 10/03/18 Rx Octreotide Acetate [Sandostatin] 1 ml IM ORDERED 10/04/18 10/04/18 09/22/18 History Acetaminophen [Tylenol] 650 mg PO Q6H PRN PRN tablet 10/11/18 Unknown Rx - History of Present Illness -Gen Adult Nature of Presenting Problems: Pt is 48/F presenting to ED via EMS. Caregiver sts that pt is lethargic but answering questions correctly. She is in renal failure and was supposed to start dialysis today at 2pm. pt has measentary CA. Symptoms have been worsening over the last several days. HX of CHF Location of Pain/Injury: reports: generalized Pain Radiation: reports: no radiation Quality of Pain: reports: none Onset/Duration: reports: 3 days ago, 4 days ago Timing: reports: still present Context/Activities at Onset: reports: none Modifying Factors: improves with: nothing Associated Symptoms: reports: weakness. denies: shortness of breath Similar Symptoms Previously?: No Recently seen or treated by another doctor?: No Review of Systems - Adult - REVIEW OF SYSTEMS - ADULT Constitutional: reports: no symptoms reported. denies: chills, fever Eyes: reports: no symptoms reported Ears, Nose, Mouth & Throat: reports: no symptoms reported Cardiovascular: reports: no symptoms reported. denies: chest pain, edema Respiratory: denies: cough, shortness of breath Gastrointestinal: reports: no symptoms reported. denies: abdominal pain Genitourinary: reports: no symptoms reported Musculoskeletal: reports: no symptoms reported Integumentary: reports: no symptoms reported Neurological: reports: slurred speech. denies: dizziness/vertigo, headache/migraines Psychiatric: reports: no symptoms reported Endocrine: reports: no symptoms reported Hematologic/Lymphatic: reports: no symptoms reported Allergic/Immunologic: reports: no symptoms reported All Other Systems: Reviewed and Negative Past History - Adult - PAST MEDICAL HISTORY-ADULT Review of Records: reports: Old Records Reviewed, Nursing Assessment Review, Medications Reviewed, Social history reviewed & non-contributory. Major Childhood Illnesses: reports: denies history Cardiovascular: reports: HTN, hyperlipidemia Respiratory: reports: denies history Gastrointestinal: reports: cancer (carcinoid tumor with liver metastasis) Obstetrical/Gynecological: reports: ovarian cysts Genitourinary: reports: denies history Musculoskeletal: reports: chronic pain, fibromyalgia Neurological: reports: other (fibromyalgia) Psychiatric: reports: anxiety Endocrine/Immune: reports: denies history Other Conditions: reports: denies history - PRIOR SURGERIES/PROCEDURES Surgical/Procedure History: reports: appendectomy, cholecystectomy - PRIOR HOSPITALIZATIONS Prior Hospitalizations: reports: for other non-related - IMMUNIZATION STATUS Childhood Immunizations: See Nurse Assessment Flu Vaccine: See Nurse Assessment - FAMILY HISTORY Family History: reviewed, not pertinent - SOCIAL HISTORY Smoking: cigarettes, less than 1 pack/day Provider spent 3-5 mins advising pt. on dangers of tobacco.: Discussed manners to quit use, and f/u contacts for add'l counseling. Substance Use: none/never Alcohol Use Frequency: rarely Living Situation: family Physical Exam-General - CONSTITUTIONAL General Appearance: thin, lethargic - EYES Eyes: PERRL/EOMI, pink conjunctivae - HEAD, EARS, NOSE, MOUTH & THROAT HENMT: normocephalic/atraumatic, moist mucous membranes, normal ENT inspection, TMs normal, pharynx normal - NECK Neck: non-tender, full range of motion, supple, normal inspection - RESPIRATORY Respiratory: chest non-tender, lungs clear, normal breath sounds, rales - CARDIOVASCULAR Cardiovascular: normal peripheral pulses, regular rate, rhythm, no edema - GASTROINTESTINAL (ABDOMEN) Abdominal Exam: normal bowel sounds, non tender, soft - LYMPHATIC Lymphatic: no adenopathy - MUSCULOSKELETAL Back Exam: normal inspection, no CVA tenderness, no vertebral tenderness Extremity: normal range of motion, non-tender, normal gait, normal inspection - SKIN Integumentary: normal color, warm/dry - NEUROLOGIC Neurologic: grossly normal - PSYCHIATRIC Psych/Mental Status: normal mood/affect, normal thought content, normal thought process, oriented x 3 Progress - PLAN OF CARE/RESULTS Progress/Plan/Lab Results: Orders Category Date Time Status IV Insertion ORDERED Care 10/24/18 13:01 Active CHEST-1 VIEW [RAD] Stat Exams 10/24/18 13:01 Ordered ABG [RESP] Routine Lab 10/24/18 13:02 Ordered CBC WITH DIFF [HEME] Stat Lab 10/24/18 13:01 Uncollected COMPREHENSIVE METABOLIC PANEL [CHEM] Stat Lab 10/24/18 13:01 Uncollected PRO B-NATRIURETIC PEPTIDE Stat Lab 10/24/18 13:01 Uncollected TROPONIN T Stat Lab 10/24/18 13:01 Uncollected URINALYSIS W/POSS RFLX CULT [URINALYSIS] Stat Lab 10/24/18 13:01 Uncollected EKG [EKG] Stat Ther 10/24/18 13:01 Ordered Result Diagrams: 10/24/18 13:34 10/24/18 13:34 - EKG 1 Time of EKG reading by physician:: 13:26 EKG Read and Signed by:: Duarte Marrero EKG Interpretation (*Must complete 3 of following elements*): Normal (sinus tachycardia, otherise normal ecg) Rate: 108 Rhythm: sinus tachycardia QRS: normal AK Interval: normal - XRAY 1 XRAY: Bilateral XRAY Study: Chest Impression: Normal (NDINGS: There is a right-sided dialysis catheter in good position with the distal tip at the lower SVC. The lungs are clear. Heart size is normal. No pneumothorax or pleural effusion. There are stable nipple shadows in the lung bases. IMPRESSION: Negative exam. Electronically signed by Robert Yee 10/24/2018 1:37 PM) - CONSULTS/PCP/HOSPITALIST Notification #1 *Consult/PCP/Hospitalist*: Consulted [facility] who accepted pt for Dr. Benson requested nephrology consult Time Discussed: 15:55 Consult Disposition: Admit #2 Consult: Dr. Allen Time Discussed: 16:04 Reason/Comments: discussed dialysis and treatment Consult Disposition: Admit Departure - Departure Date of Disposition Decision: 10/24/18 Time of Disposition Decision: 15:51 DIAGNOSIS: Leukocytosis, Congestive heart failure, Urinary tract infection, Acidosis Disposition: ADMITTED INPATIENT 09 Certified Medical Emergency: Emergent Condition: Serious Referrals and Follow-Ups: None,PCP [Primary Care Provider] - - Critical Care Note This patient required my direct & personal management of CC.: No Attestation - Physician/ JESSICA Attestation Patient care was provided by Advanced Practice Provider:: Yes Advanced Practice Provider:: Bill Pereira Advanced Practice Provider documentation review:: The Mid-level provider documentation, treatment plan and medical decision making was reviewed by the physician who agrees with all treatment and medical decision making by the MLP. The physician spent face to face time with patient:: No Advanced Practice Provider documentation review:: Supervising physician onsite and consulted in the evaluation and care of this patient. The physician did not have a face to face encounter with the patient. This chart was documented by the indicated scribe, (Mabel Howard Scribe) and accurately reflects the services I performed and decisions made by me, Bill Pereira CRNP, as attested by the provider's signature.
[2018-10-24] MEDS ORDERED: XOPENEX NEB INH PRN (16:45)
[2018-10-24] MEDS ORDERED: MERREM 500 MG in NS 50 ML IV SCH (17:00)
[2018-10-24] MEDS: PROTONIX IV SCH (17:30)
[2018-10-24] MEDS: SODIUM CHLORIDE 0.9% INJ SCH (17:30)
--- NOTE | 2018-10-24 17:32 | HISTORY AND PHYSICAL ---
HISTORY AND PHYSICAL ADDENDUM: Patient seen and examined by me face to face. All the laboratory, images and vital signs were reviewed, no family members at the bedside or caregiver. Ms. Bolivar is a 48-year-old female with a past medical history of metastatic carcinoid tumor. I believe the metastases is to the liver. Also she has a past medical history of chronic pain, continues narcotic therapy, anxiety, depression, COPD. It looks like now she is being scheduled to get dialysis as an outpatient. She presented on the last admission with acute kidney injury with no recovery, and apparently she is supposed to go today for dialysis. As per the ER doctor's note, the caregiver state that this patient was more lethargic. She has been answering some of my questions properly. She is tachycardic. Respiratory rate is okay as well as the blood pressure. Laboratory showed elevated white blood cells at 25.7. Last time at discharge on 10/11/2018, it was around 10.9. She received antibiotics. Her pH is really low at 7.04, and she received bicarbonate. I do believe this patient will be evaluated by Nephrology Department and probably dialysis today. BUN and creatinine are elevated at 72 and 6.9. She is cachectic. She is not having shortness of breath or coughing. I do not really have a source of infection, but she has a lot of leukocytes in the urine and some blood as well. She is not oriented enough to make decisions. She is not oriented to time, and she states that she is in a doctor's office but not an ER. This patient will be admitted like I mentioned before. Nephrology Department will be consulted. She will get antibiotics, breathing treatment. We ordered also bicarbonate. We consulted also the palliative care team, and hopefully when the patient is more awake, we will discuss about her DNR status. At this moment, she is full code. I agree with the rest of the nurse practitioner's assessment and plan. cc: Vikas Flores MD
[2018-10-24] MEDS: MERREM 500 MG in NS 50 ML IV SCH (17:34)
--- NOTE | 2018-10-24 18:38 | HISTORY AND PHYSICAL ---
ONCOLOGIST: Dr. Anson Miller PROFESSIONAL ATHLETES COACH: Dr. Chou. CHIEF COMPLAINT: Lethargy, abdominal pain, and confusion. HISTORY OF PRESENT ILLNESS: Mrs. Bolivar is a 48-year-old female well known to our service. She has a history of metastatic carcinoid tumor and has most recently gone into renal failure which has not recovered, ultimately categorizing her as ESRD. She was supposed to have outpatient dialysis today, however did not make that appointment because she has been lethargic, not eating or drinking, and essentially not getting out of bed. The patient, herself, is a poor historian and really cannot add to the interview due to her mental status. There is no family at the bedside to assist with history. When she got to the ER today she was noted to have multiple metabolic derangements, including high anion gap metabolic acidosis with a mild overlying respiratory acidosis and a creatinine of 6.9 with a BUN of 72. Her chest x-ray is negative for anything acute. We have started her on a bicarb drip as well as broad spectrum antibiotics and aggressive fluid resuscitation as she is quite volume depleted. She will go to the ICU and is full code at this time. PAST MEDICAL HISTORY: 1. Metastatic carcinoid tumor with multiple organ involvement, followed by Dr. Galindo. 2. ESRD, on hemodialysis, followed by Dr. Chou. Today was apparently her first day of outpatient dialysis, which she did not get to. 3. Chronic pain with history of opiate dependence. 4. Nicotine dependence. 5. COPD. 6. Severe protein-calorie malnutrition. 7. Recent placement of double J stents bilaterally by Dr. Jefferson. 8. Anxiety and depression. PAST SURGICAL HISTORY: She has had colon resection, cholecystectomy, right eye surgery, dialysis catheter placement, recent double J ureter stent placement. SOCIAL HISTORY: She continues to smoke. Rare alcohol use is noted. She also has a history of marijuana use and prescription opiate dependence. FAMILY HISTORY: Significant for lung cancer, diabetes, and CAD. ALLERGIES: Penicillin. HOME MEDICATIONS: Yet to be complied. However, discharge medications on 10/11/2018: Afinitor 10 mg p.o. daily, [place] 10/325 one p.o. t.i.d. as needed, Sandostatin 1 mL IM as directed, potassium chloride 20 mEq p.o. daily, Tylenol 650 p.o. q six hours as needed, Neurontin 100 mg p.o. b.i.d., NicoDerm 7 mg transdermal patch, Protonix 40 mg p.o. daily. REVIEW OF SYSTEMS: Essentially unable to obtain. PHYSICAL EXAMINATION: VITAL SIGNS: Blood pressure is 100/79, heart rate is 120, O2 saturation 96% on nasal cannula, temperature not recorded. GENERAL: This is a cachectic appearing 48-year-old female lying in a hospital bed, lethargic and in no acute distress. NEUROLOGIC: She is lethargic and will open her eyes to verbal stimulus. She follows commands without focal deficits, but she has difficulty answering orientation questions correctly. HEENT: Head is atraumatic and normocephalic. Her pupils are 1 mm and sluggish to light response bilaterally. The oral mucosa is extremely dry and tacky. Dentition is poor. NECK: Supple. Trachea is midline. There is no JVD. CHEST: Coarse bilaterally. CARDIOVASCULAR: Tachy and regular. S1, S2 is noted. GASTROINTESTINAL: Diffusely tender to palpation. There is no distention. Bowel sounds are hypoactive. EXTREMITIES: No edema. Pulses are 1+ bilaterally. DIAGNOSTIC DATA: Chest x-ray is negative. EKG shows sinus tachycardia without acute ST or T abnormalities. WBC 25.71. Hemoglobin 10.5. Hematocrit 32.6. Platelet count 166,000. ABG on room air: pH 7.04, CO2 25, O2 80, bicarbonate 7.5. Sodium 139. Potassium 3.7. Chloride 100. CO2 6. Anion gap 33. BUN 72. Creatinine 6.9. Glucose 86. Calcium 7.6. AST 32. ALT 27. Alkaline phosphatase 126. Troponin negative. proBNP 2238. Albumin 3.3. UA does show significant bacteruria. Salicylate less than 3. Acetaminophen 11.1. Acetone level small. ASSESSMENT AND PLAN: 1. Recent diagnosis of end-stage renal disease with significant metabolic acidosis: Will start a bicarb bolus and drip and consult Dr. Chou for dialysis as she does have a port and she is quite acidotic at this point. Will continue to monitor her electrolytes, acid-base, and hemoglobin and hematocrit closely and adjusting as necessary. She does have a significant anion gap and she has a small acetone level, which likely represents starvation ketosis and dehydration. Will continue intravenous fluids 2. Sepsis with no clear source: White count continues to increase. She is marginally hypotensive with tachycardia but no lactic acidosis on arterial blood gas. Blood cultures have been ordered and will start broad spectrum antibiotics with vancomycin and meropenem as she has had ESBL in her urine and recent dialysis catheter placement. 3. Toxic metabolic encephalopathy: Likely a combination of dehydration, sepsis, and renal failure with possible toxic encephalopathy with opiate medications and decreased renal clearance causing toxic accumulation. There are no focal deficits. Will hold any narcotics for now and monitor her response. 4. UTI: She makes no urine at this point. Review of microbiology shows ESBL in the past, merrem added. Cultures pending. 5. Known metastatic carcinoid tumor: Aware. 6. Prognosis is poor. We have consulted Palliative Care. 7. Deep venous thrombosis prophylaxis with sequential compression devices. Further recommendations to follow. Dictated by LEE ANN Chance for Vikas Flores MD cc: LEE ANN Chance MD MTDD
[2018-10-24] MEDS: SODIUM BICARBONATE 8.4% 150 MEQ in D5W 1,000 ML IV SCH (18:41)
[2018-10-24] MEDS: XOPENEX NEB INH SCH ×2 (19:53→23:22)
[2018-10-24] MEDS: NORCO-10 PO PRN (22:42)
[2018-10-25] MEDS: XOPENEX NEB INH SCH ×6 (03:17→22:44)
[2018-10-25] MEDS: SODIUM CHLORIDE 0.9% INJ SCH ×2 (05:10→16:31)
[2018-10-25] MEDS: PROTONIX IV SCH ×2 (05:10→16:31)
[2018-10-25 05:30] LABS: BASO# 0.02 X1000 (0.0-0.2); BASO% 0.1 % (0.0-0.8); EOS# 0.03 X1000 (0.0-0.7); EOS% 0.2 % (0.0-10.0); HEMATOCRIT 27.2 % (37.0-47.0); HEMOGLOBIN 8.9 g/dL (12.0-16.0); IMM GRAN# 0.24 X1000 (0.0-0.04); IMM GRAN% 1.5 % (0.0-0.5); LYMPH# 1.04 X1000 (1.2-3.4); LYMPH% 6.4 % (20.5-51.1); MCH 26.6 PG (27-31); MCHC 32.7 g/dL (33-37); MCV 81.4 FL (81-99); MONO# 1.54 X1000 (0.11-0.59); MONO% 9.4 % (1.7-9.3); MPV 11.2 FL (7.4-10.4); NEUT# 13.48 X1000 (1.4-6.5); NEUT% 82.4 % (42.2-75.2); PLT 123 X1000 (130-400); RBC 3.34 XMIL (4.2-5.4); RDW 15.5 % (11.5-14.5); WBC 16.35 X1000 (4.8-10.8)
[2018-10-25] MEDS ORDERED: TIGHT: 0.2 ML/HR FOR DIALYSIS MISC PRN (06:10)
[2018-10-25] MEDS ORDERED: HEPARIN IV PRN (06:10)
[2018-10-25] MEDS ORDERED: NS 2,000 ML MISC PRN (06:10)
[2018-10-25 06:40] LABS: ALLEN TEST YES; BE -13.8 mmoll (-3.0-3.0); BLOOD TYPE ARTERIAL; HCO3-(ACT) 14.1 mmoll (20.0-26.0); METHB 0.7 % (0.0-1.5); PCO2(98.6) 31 mmHg (35-45); PO2(98.6) 87 mmHg (60-100); SAMPLE BLOOD; SAO2 97.6 % (95.0-100.0); THB 10.4 g/dL (11.5-17.4); pH(98.6) 7.22 (7.35-7.45)
[2018-10-25 06:41] LABS: MODALITY ROOM AIR
[2018-10-25 07:45] LABS: ALBUMIN 2.9 g/dL (3.5-5.0); CREATININE 7.4 mg/dL (0.5-0.9); MAGNESIUM 1.5 mg/dL (1.5-2.7); POTASSIUM 2.7 mmol/L (3.5-5.1)
[2018-10-25 07:53] LABS: CALCIUM 6.6 mg/dL (8.8-10.2)
--- NOTE | 2018-10-25 08:11 | PROGRESS NOTE ---
DATE: 10/25/2018 SUBJECTIVE: This patient seems to be doing a little bit better. She is scheduled today for dialysis. When I evaluated this patient, she was sitting on the bed and tried to eat by herself. She is oriented x3 today. Laboratory looks better compared with yesterday except BUN and creatinine are higher today. She is hypokalemic as well. WBC decreased from 25 to 16. No fever documented. OBJECTIVE: Vital Signs: Temperature 97.6 degrees, pulse 97, respiratory rate 15, blood pressure 122/65, oxygen saturation 99 on room air. HEENT: Head normocephalic. No trauma. PERRLA. Neck: Supple. No JVD. No masses. Central trachea. Chest: Some crepitus at the bases. Otherwise, no wheezing, no rhonchi. Abdomen: There is diffuse tenderness to palpation which is generalized. Bowel sounds are hypoactive but present. Extremities: No edema. Probably some clubbing. No cyanosis. Neurological Examination: This patient is alert and oriented x3 today. She is following commands but she has generalized weakness. Laboratory: WBC 16.3, hemoglobin 8.9, hematocrit 27.2, platelets 123,000. Sodium 142, potassium 2.7, chloride 102, bicarbonate 9, BUN 74, creatinine 7.4, glucose 109, phosphorus 14, magnesium 1.5, albumin 2.9. ASSESSMENT AND PLAN: 1. Metabolic encephalopathy. This is likely a combination of dehydration, renal failure, and probably infection. It could be a toxic encephalopathy due to opioid medication and decreased renal function. There are no focal deficits but she seems to be doing better today. 2. End-stage renal disease with significant metabolic acidosis. Continue with the same management. The pH looks better today, as well as the bicarbonate. Continue with the same management. She is still acidotic though. She is scheduled today for dialysis. 3. Sepsis with no clear source of infection. White count was 25 and today is 16. No reported fever. Blood culture and her urine culture are negative so far. X-ray did not show any source of infection. We will continue to monitor. 4. Metastatic carcinoid tumor. Aware. 5. History of urinary tract infection. Continue with antibiotics for now. Urine culture negative, as well as blood culture. 6. History of chronic obstructive pulmonary disease. Aware. Not in exacerbation. 7. Severe protein calorie malnutrition. Continue with her diet. 8. Anxiety and depression. Aware. 9. Chronic pain with history of opiate dependence. Aware. Her pain medication has been held due to mental status changes but now that she is better, she has been placed back on her pain medication. She has cancer. CRITICAL CARE TIME: 35 minutes. cc: Vikas Flores MD
[2018-10-25] MEDS: SODIUM BICARBONATE 8.4% 150 MEQ in D5W 1,000 ML IV SCH ×2 (08:13→23:59)
--- NOTE | 2018-10-25 10:15 | NEPHROLOGY CONSULTATION ---
DATE: 10/25/2018 REASON FOR ADMISSION: Abdominal pain with confusion and lethargy. REASON FOR CONSULT: End-stage renal disease with assistance with medical management. HISTORY OF PRESENT ILLNESS: Ms. Bolivar is a 48-year-old white female who had recently been discharged from the hospital on 10/11/2018. During that hospital stay, it was found that she is a patient of Dr. Miller, with a history of carcinoid tumor of the liver. She had been maintained on Sandostatin secondary to carcinoid syndrome. She had developed acute kidney injury during that hospital stay with no urine output. She had a tunneled dialysis catheter placed after placement of renal stents. She continued to require hemodialysis on discharge. She has a tunnel dialysis catheter to the right IJ. Unfortunately, after her discharge she has not attended any outpatient dialysis appointments. She did undergo a cystoscope per Dr. Jefferson with exam of bilateral retrograde urethral pyelograms. She had a left ureteroscopy, with placement of a left double-J stent. The patient was discharged, she was to go to [facility]. She was to be discharged home in the care of her family and to be followed up per Dr. Miller on an outpatient basis. Unfortunately, due to her not making it to any of her dialysis appointments she has found herself not eating and drinking, she was unable to get out of bed, poor historian. Decreased mental status. Family had brought her in to [facility] for further monitoring evaluation to the ER. It was noted that she had multiple metabolic abnormalities including a high anion gap with metabolic acidosis overlying respiratory acidosis. Her creatinine was up to 6.9 with a BUN of 72. Her anion gap was elevated. At that time she was placed on a sodium bicarbonate drip. She was transferred then to ICU. She remains a full code and she was started on aggressive fluid resuscitation. 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 Miller, end-stage renal disease, to be on dialysis 3 times a week at the outpatient clinic in [place], chronic pain with history of opiate dependence, nicotine dependence, COPD, severe protein calorie malnutrition, recent placement of double-J stents bilateral per Dr. Jefferson, anxiety, and depression. PAST SURGICAL HISTORY: Colon resection, cholecystectomy, right eye surgery, dialysis catheter placement, tunnel catheter to the right IJ. SOCIAL HISTORY: She was released home to self-care. She continues to smoke. Rare alcohol noted. History of marijuana use. Has a prescription opiate for dependence. FAMILY HISTORY: Significant for lung cancer, diabetes, and coronary artery disease. Negative for renal disease. CURRENT ALLERGIES: Penicillin. HOME MEDICATIONS: Home medications have yet to be reconciled. She was discharged home on a Afinitor, Alviso, Sandostatin, potassium chloride, Tylenol, Neurontin, NicoDerm, and Protonix. REVIEW OF SYSTEMS: Per the HPI with pertinent positives listed. VITAL SIGNS: Temperature 97.6 degrees, blood pressure 122/65, heart rate 105, respirations are 13. She is on room air. Last recorded saturation 100%. She has had 1615 in, she has only had 90 mL out. DIAGNOSTIC DATA: Sodium is 142, potassium 2.7, chloride 102, CO2 9, BUN 74, creatinine 7.4, glucose 109. The patient has an anion gap of 31, her calcium is 6.6, phosphorus 14, magnesium 1.5, with an albumin of 2.9. White count 16.35, hemoglobin 8.9, hematocrit 27.2, with a platelet count of 123,000. Her ABGs this morning: pH 7.22, CO2 31, pO2 87, bicarb 14.1 with a CO2 of 14.1. Plasma lactate of 0.6. This is on room air. The patient's urinalysis on admission showed brown turbid urine she has not been making urine, requiring dialysis. She has small acetones. Acetaminophen of 11.1, with a salicylate less than 3. Blood cultures are currently pending. Urine culture is currently pending. Chest x-ray on admission showed negative exam for acute disease. PHYSICAL EXAMINATION: General: This is a 48-year-old white female resting quietly in bed. She appears critically ill. She is in no acute distress. Skin: Warm and dry. HEENT: Normocephalic, atraumatic. Conjunctivae pale. DEB, though pupils are sluggish. Mucous membranes are dry. Neck: Supple. Trachea midline. She has no evidence of JVD. Cardiovascular: She is regular rate and rhythm. Tachycardic on the monitor. No murmur or gallop appreciated. Lungs: Clear to auscultation anteriorly, equal excursion, with poor inspiratory effort on room air. Abdomen: Slightly distended, soft, nontender. Positive bowel sounds. Genitourinary: Not inspected. Viramontes catheter is in place, with minimal urine out documented. Extremities: She has 1+ lower extremity edema. No clubbing or cyanosis. Integumentary: Tunnel catheter to the right chest wall. This is dry and intact. Neurological: The patient does have asterixis noted to her extremities when she does move them purposefully. She also has asterixis noted to the nodding of her head, not intentional. ASSESSMENT AND PLAN: 1. Chronic kidney disease, stage 5D. The patient is in need of dialysis. We will place her on dialysis this morning. We will put her on a 3 K bath. She is to dialyze for 3.5 hours. We will attempt to pull 2 to 3 L of ultrafiltration. 2. Electrolytes and acid-base balance. The patient has hypokalemia, with anion gap acidosis and metabolic acidosis with respiratory alkalosis. Again, with correction on dialysis. She remains on her sodium bicarbonate drip. We will re-evaluate that drip in the a.m. 3. Anemia. This remains low but stable. 4. Sepsis. The patient is currently on renal dosed antibiotics checking her urine and her blood cultures. These are currently pending. The patient does have a microbiology showing ESBL in the past. Merrem had been added to her treatment. 5. Known metastatic carcinoid tumor Dr. Miller has been consulted. I would like to thank you for allowing us to follow with this patient. Dictated by LEE ANN Lopez for Dylan Chou MD Face to face encounter, data reviewed, discussed with Tre Diane on 10/25/18. I agree with the above assessment and plan of care. cc: LEE ANN Lopez MD [facility]
[2018-10-25] MEDS: NORCO-10 PO PRN (10:56)
[2018-10-25] MEDS ORDERED: DILAUDID IV ONE (11:25)
[2018-10-25] MEDS ORDERED: KLONOPIN PO ONE (11:38)
[2018-10-25] MEDS: MERREM 500 MG in NS 50 ML IV SCH (17:29)
[2018-10-25] MEDS ORDERED: ATIVAN IV ONE (18:05)
[2018-10-25] MEDS: ATIVAN IV PRN (21:04)
[2018-10-26] MEDS: XOPENEX NEB INH SCH ×6 (03:10→23:09)
[2018-10-26] MEDS: PROTONIX IV SCH ×2 (05:14→16:35)
[2018-10-26] MEDS: SODIUM CHLORIDE 0.9% INJ SCH (05:14)
[2018-10-26] MEDS ORDERED: TIGHT: 0.2 ML/HR FOR DIALYSIS MISC PRN (06:00)
[2018-10-26] MEDS ORDERED: NS 2,000 ML MISC PRN (06:00)
[2018-10-26] MEDS ORDERED: HEPARIN IV PRN (06:00)
[2018-10-26 06:38] LABS: EOS# 0.06 X1000 (0.0-0.7); EOS% 0.4 % (0.0-10.0); HEMATOCRIT 26.6 % (37.0-47.0); HEMOGLOBIN 8.7 g/dL (12.0-16.0); IMM GRAN# 0.13 X1000 (0.0-0.04); IMM GRAN% 0.9 % (0.0-0.5); LYMPH# 0.65 X1000 (1.2-3.4); LYMPH% 4.5 % (20.5-51.1); MCH 26.9 PG (27-31); MCHC 32.7 g/dL (33-37); MCV 82.4 FL (81-99); MONO# 1.57 X1000 (0.11-0.59); MONO% 10.8 % (1.7-9.3); MPV 11.6 FL (7.4-10.4); NEUT# 12.14 X1000 (1.4-6.5); NEUT% 83.4 % (42.2-75.2); PLT 77 X1000 (130-400); RBC 3.23 XMIL (4.2-5.4); RDW 15.6 % (11.5-14.5); WBC 14.55 X1000 (4.8-10.8)
[2018-10-26 07:16] LABS: ALB/GLOB RATIO 0.9; ALBUMIN 2.7 g/dL (3.5-5.0); CREATININE 4.3 mg/dL (0.5-0.9); MAGNESIUM 1.4 mg/dL (1.5-2.7); PHOSPHORUS 4.3 mg/dL (2.7-4.5); TOTAL BILIRUBIN 0.23 mg/dL (0.20-1.00); TOTAL PROTEIN 5.8 g/dL (6.3-8.3)
[2018-10-26 07:35] LABS: CALCIUM 6.3 mg/dL (8.8-10.2); POTASSIUM 2.1 mmol/L (3.5-5.1)
[2018-10-26] MEDS ORDERED: KLOR-CON PO ONE (07:36)
[2018-10-26] MEDS ORDERED: MAGNESIUM SULFATE 2 GM/S.W.I. 2 GM/50 ML IVPB IV ONE (07:37)
--- NOTE | 2018-10-26 08:41 | NEPHROLOGY PROGRESS NOTE ---
DATE: 10/26/2018 TIME SEEN: 0625. SUBJECTIVE: Ms. Bolivar is resting quietly in bed. She is not arousable except to tactile stimuli. Does not open eyes. Moans. Remains nonverbal. OBJECTIVE: Vital Signs: Her most recent vital signs are temperature 97.6 degrees, blood pressure 103/67, heart rate 111, respirations 13. She is on 50% Ventimask. Her last recorded saturation is 93%. She has had 1590 in and 1600 out. This was on dialysis. Labs: Her sodium is 143, potassium is 2.1, chloride is 97, CO2 27, BUN 29, creatinine 4.3, glucose 92, her anion gap is 19, her calcium is 6.3, phosphorus 4.3, albumin 2.7, magnesium is 1.4. Her white count is 14.55, hemoglobin 8.7, hematocrit 26.6, with a platelet count of 77,000. Physical Examination: General: This is a 48-year-old, white female. She is resting quietly in bed. She appears chronically ill. No acute distress. Skin is warm and dry. HEENT: Normocephalic, atraumatic. Conjunctivae are pale pink. She has DEB. Mucous membranes are dry. Neck: Supple. Trachea midline. No evidence of JVD. Cardiovascular: Regular rate and rhythm. She is tachycardic on the monitor. No appreciable murmur or gallop. Lungs: Clear to auscultation anteriorly. Equal excursion. She remains on O2 per Ventimask. Abdomen: Soft, nontender. Positive bowel sounds. Genitourinary: Not inspected. Patient has a Viramontes catheter with no urine out. Extremities: Have no edema, no clubbing or cyanosis. Integumentary: She has a tunneled catheter to the right chest wall. This is dry and intact. Neurological: As mentioned above. ASSESSMENT AND PLAN: 1. Chronic kidney disease stage 5D. The patient is in need for dialysis again today. Due to her electrolytes, we will place her on a 4 K bath. She is to dialyze for 3.[address] her on a 2.5 calcium bath. We will have no ultrafiltration to pull patient even. 2. Electrolytes and acid-base balance. Again, the patient's potassium is 2.1 with a calcium of 6.6. We will place her on a 4 K bath, 2.5 calcium bath on dialysis. Her magnesium is at 1.4. She has been ordered 2 g of magnesium intravenous push through piggyback per primary care. 3. Acid-base balance. She continues with her sodium bicarbonate. We will leave this on again and re-evaluate her labs in the morning. 4. Anemia. This is low but stable. 5. Sepsis. The patient is on renal dosed antibiotics. She is currently on Merrem. 6. Known metastatic carcinoid tumor. This is followed by Dr. Miller. I would like to thank you for allowing us to follow with this patient. Dictated by LEE ANN Lopez for Dylan Chou MD Face to face encounter, data reviewed, discussed with Tre Diane on 10/26/18. I agree with the above assessment and plan of care. cc: LEE ANN Lopez MD [facility]
--- NOTE | 2018-10-26 09:34 | PROGRESS NOTE ---
DATE: 10/26/2018 SUBJECTIVE: The patient is sleepy, but arousable. She is able to say her name and date of . She is not oriented to time or place. Yesterday, she had some episodes of agitation but today she seems to be more calm. We have removed the restraints. She has a history of metastatic carcinoid tumor. Now, she has end-stage renal disease and she will receive dialysis today again. Her potassium is low. We will replace during dialysis/ I will stop the bicarbonate since the bicarbonate level today is 27. Magnesium is low I will replace it. OBJECTIVE: Vital Signs: Temperature 102 degrees, respiratory rate 12 blood pressure 103/67, oxygen saturation 95% on a Ventimask. HEENT: Head normocephalic. No trauma. PERRLA. Neck: Supple. No JVD. No masses. Central trachea. Chest: Crepitus at the bases. No wheezing. No rales. Abdomen: Soft. Diffuse tenderness to palpation which is generalized. Bowel sounds are hypoactive but present. Extremities: No edema. It looks like some clubbing, no cyanosis. Neurological: The patient is sleepy, but arousable. Oriented to person. She is able to say her date of and follows commands. She is not oriented to time or place. LABORATORY: WBC 14.5, hemoglobin 8.7, hematocrit 26.6, platelets 77,000. Sodium 143, potassium 2.1 chloride 97, bicarbonate 27, BUN 29, creatinine 4.3, glucose 92, calcium 6.3, magnesium 1.4 albumin 2.7. ASSESSMENT AND PLAN: 1. Metabolic encephalopathy. She is still a little bit confused. She is able to say her name, follow commands and date of . She is not oriented to time or place. No focal deficits but she does have generalized weakness. 2. End-stage renal disease with significant metabolic acidosis. The metabolic acidosis is better. She will be dialyzed today. 3. Hypokalemia. The potassium will be replaced during dialysis. 4. Hypomagnesemia. I will replace it. 5. Sepsis with no clear source of infection. The WBC is trending down. She had an episode of low-grade fever yesterday in the afternoon. Blood culture and urine culture so far negative. 6. Metastatic carcinoid tumor, aware. Hematology/ oncology evaluation has been requested. 7. History of urinary tract infection. Continue with antibiotics for now. Urine culture negative as well as blood culture. 8. History of chronic obstructive pulmonary disease, aware. Not in exacerbation. 9. Severe protein calorie malnutrition. Continue with her diet. 10. Thrombocytopenia. Platelet count is trending down. She has been thrombocytopenic before. We will monitor for now. Hematology/ oncology evaluation has been requested. 11. Severe protein calorie malnutrition. Continue with her diet. 12. Anxiety and depression. Aware. 13. Chronic pain with history of opiate dependence aware. Since this patient has cancer I will continue with the with her medications. CRITICAL CARE TIME: 35 minutes. cc: Vikas Flores MD
[2018-10-26] MEDS: NORCO-10 PO PRN (10:38)
--- NOTE | 2018-10-26 10:45 | INFECTIOUS DISEASE CONSULT REP ---
DATE: 10/26/2018 CONCLUSION: The patient has a leukocytosis, the current cause of which is uncertain to me. It should be noted in her urine culture that it was a mixed culture, but that does not rule out the fact that she did have a urinary tract infection and that is causing her leukocytosis. Thus far, blood cultures are negative, and I think the likelihood of infection coming from the patient's dialysis catheter is slim. Likewise with a clear chest x-ray, the likelihood of pneumonia is also very slim. RECOMMENDATIONS: Since the white count is coming down since the patient has been put on meropenem, I would suggest continuing meropenem, and I agree with the current dose of 500 mg IV daily. DISCUSSION: The patient was unable to provide a history. According to the chart, the patient was initially put in the hospital with chief complaint of lethargy, abdominal pain, and confusion. In the emergency room, she was found to have multiple metabolic derangements, but her chest x-ray was clear. She was started on broad-spectrum antibiotics and aggressive fluid resuscitation. DIAGNOSTIC STUDIES: Her most recent lab studies show a CBC with a white count of 14,550, and when the patient came in the hospital, the white count was 25,710, hemoglobin is 8.7, and platelet count is 77,000. The last blood gases show a pH of 7.22, a PO2 of 87, and a pCO2 of 31. The patient's creatinine is 4.3 with a GFR of 11. Liver function studies were normal except for slight elevation of the alkaline phosphatase to 107 and the AST to 42. Patient's urinalysis showed white cells, red cells, but no bacteria and no yeast. Blood cultures are negative at 48 hours and the urine culture grew a mixed gavi. The patient's chest x-ray shows clear lung rendon. PAST MEDICAL HISTORY: 1. Metastatic carcinoid tumor with multiple organ involvement. 2. End-stage renal disease for which the patient is on hemodialysis. 3. Chronic pain with a history of opiate dependence. 4. Nicotine dependence. 5. COPD. 6. Severe protein-calorie malnutrition. 7. Recent placement of double-J stents bilaterally by Dr. Jefferson. 8. Anxiety and depression. PAST SURGICAL HISTORY: 1. Colon resection for her carcinoid tumor. 2. Cholecystectomy. 3. Right eye surgery. 4. Dialysis catheter placement on the right upper part of the chest. 5. Recent double-J stent placement. SOCIAL HISTORY: The patient smokes cigarettes. She rarely drinks alcoholic beverages, but she does have history of marijuana and of prescription opiate dependence. FAMILY HISTORY: Positive for lung cancer, diabetes, and coronary artery disease. ALLERGIES: The patient is allergic to penicillin, the manifestations of which were hives. HOME MEDICATIONS: Include Afinitor, Tylenol, Neurontin, NicoDerm, and Protonix. REVIEW OF SYSTEMS: Unable to be obtained. PHYSICAL EXAMINATION: Vital Signs: Temperature is 97.2 degrees, pulse 96, respirations 16, blood pressure 113/73. Height/weight: The patient is 5 feet 4 inches tall and weighs 90 pounds. General: This is an ill-appearing and malnourished-appearing, middle-aged female. She is in no acute distress. Head, eyes, ears, nose, and throat: She can hear my spoken words and see near objects. There are no white patches on her tongue. Neck: No pain with movement. Thorax: Patient has a tunneled dialysis catheter present in the right upper part of the chest. The site is not swollen or red. Lungs: Clear to auscultation. Cardiovascular: Heart rate is regular. Abdomen: Soft and nontender. Neurologic: The patient is awake. When I asked her questions about her medical history and also as regarding the review of systems, the patient could not answer them. Integument: No rash noted. Thank you for the consult. cc: Robby Junior MD
[2018-10-26] MEDS: ATIVAN IV PRN ×2 (14:03→18:37)
--- NOTE | 2018-10-26 14:23 | HEMO/ONC CONSULTATION ---
DATE: 10/26/2018 ADMITTING PHYSICIAN: Dr. Flores. REQUESTING PHYSICIAN: Dr. Flores. We appreciate this consult. CHIEF COMPLAINT: Metastatic carcinoid tumor. HISTORY OF PRESENT ILLNESS: Ms. Farheen Bolivar is a 48-year-old female, well known to Dr. Miller with a history of carcinoid tumor with metastasis to the liver. The patient has been maintained on Sandostatin secondary to carcinoid syndrome. The patient's next dose is due November 07, 2018. The patient does have a longstanding history of chronic pain associated with this illness. Additionally has a history of chronic opioid and narcotic abuse. The patient was recently admitted secondary to renal failure and ultimately was categorized as end-stage renal disease requiring hemodialysis. The patient was scheduled for outpatient dialysis but missed several appointments secondary to transportation issues. The patient has a recent history of significant lethargy, poor appetite, and poor oral intake. Upon presentation to [facility] Emergency Department the patient was found to have multiple metabolic abnormalities including high anion gap, metabolic acidosis, as well as respiratory acidosis. Creatinine was elevated to 6.9. The patient is admitted to ICU for aggressive fluid hydration, bicarb drip, and broad-spectrum antibiotics, as well as hemodialysis. PAST MEDICAL HISTORY: 1. Metastatic carcinoid tumor to liver. 2. End-stage renal disease, on hemodialysis. 3. Chronic pain with a history of opiate and narcotic dependence. 4. Nicotine dependence. 5. COPD. 6. Severe protein calorie malnutrition. 7. Anxiety and depression. PAST SURGICAL HISTORY: 1. Recent placement of double-J stents bilaterally by Dr. Jefferson. 2. Colon resection. 3. Cholecystectomy. 4. Right eye surgery. 5. Dialysis catheter placement. SOCIAL HISTORY: The patient continues to smoke cigarettes. She reports rare alcohol. She does have a history of opiate and narcotic dependence, as well as marijuana use. FAMILY HISTORY: Significant for lung cancer in a first-degree relative. MEDICATIONS ON ADMISSION: 1. Afinitor. 2. Prospect. 3. Sandostatin. 4. Potassium chloride. 5. Tylenol. 6. Neurontin. 7. NicoDerm patch. 8. Protonix. ALLERGIES: Penicillin. REVIEW OF SYSTEMS: A 14 point review of system was attempted and is unable to be obtained as the patient is currently confused. PHYSICAL EXAMINATION: General: Ms. Bolivar is a 48-year-old female who is quite cachectic, lying supine in bed, in no immediate distress. Vital Signs: Temperature 97.2 degrees, blood pressure 107/55, heart rate 115, respirations 11, O2 saturation 97% on room air. HEENT: Normocephalic, atraumatic. Mucous membranes are slightly pale and moist. Sclerae anicteric. Extraocular movements intact. Neck: Supple. Lungs: Clear to auscultation bilaterally. Chest expansion is equal bilaterally. CV: S1, S2 is heard. No murmurs, rubs, or gallops. Abdomen: Nondistended, nontender. Bowel sounds positive in all quadrants. No rebound or guarding noted. Extremities: Without clubbing, cyanosis, or edema. Dermatologic: No rashes, bruises, or lesions. Neurologic: The patient is awake. She is oriented to name and place. She is disoriented as to situation. She has no overt focal deficit. LABORATORY DATA: Hemoglobin 8.7, hematocrit 26.6, white blood cell count is 14.55, platelets 77,000. Sodium 143, potassium 2.1, chloride 97, CO2 is 27, BUN 29, creatinine 4.3, and glucose is 92, calcium 6.3, phosphorus 4.3, magnesium 1.4. Bilirubin 0.23, alkaline phosphatase 107, AST 42, ALT is 40. ASSESSMENT AND PLAN: 1. Metastatic carcinoid tumor to the liver. The patient is currently maintained on Afinitor and Sandostatin for carcinoid syndrome. Her next dose of Sandostatin is due 11/07/2018. 2. Recent diagnosis of end-stage renal disease with metabolic acidosis. The patient is currently on a bicarb drip. Dr. Chou has been consulted for dialysis. She is to undergo dialysis today. 3. Sepsis with no clear etiology. Dr. Junior has been consulted. She is on broad-spectrum antibiotics at this time. 4. Toxic metabolic encephalopathy. Likely multifactorial due to dehydration, sepsis, and renal failure. 5. Urinary tract infection. The patient is currently on meropenem. 6. We will follow along with you and make further recommendations pending outcomes. The above reflects the history, exam, assessment, and plan of Dr. Tena. Dictated by LEE ANN Donato for Ly Tena MD cc: LEE ANN Donato MD I have seen and examined the patient and the above note reflects my history, assessment and plan. Ly Tena MD [facility]
[2018-10-26] MEDS: MERREM 500 MG in NS 50 ML IV SCH (17:11)
[2018-10-27] MEDS: NORCO-10 PO PRN ×3 (00:38→16:26)
[2018-10-27] MEDS: XOPENEX NEB INH SCH ×6 (03:34→23:20)
[2018-10-27] MEDS: MORPHINE IV PRN ×3 (04:50→13:50)
[2018-10-27] MEDS: SODIUM CHLORIDE 0.9% INJ SCH (05:34)
[2018-10-27] MEDS: PROTONIX IV SCH ×2 (05:34→16:27)
[2018-10-27 06:04] LABS: EOS# 0.03 X1000 (0.0-0.7); EOS% 0.3 % (0.0-10.0); HEMATOCRIT 24.5 % (37.0-47.0); HEMOGLOBIN 7.5 g/dL (12.0-16.0); IMM GRAN# 0.05 X1000 (0.0-0.04); IMM GRAN% 0.5 % (0.0-0.5); LYMPH# 0.59 X1000 (1.2-3.4); LYMPH% 5.7 % (20.5-51.1); MCH 26.5 PG (27-31); MCHC 30.6 g/dL (33-37); MCV 86.6 FL (81-99); MONO# 1.14 X1000 (0.11-0.59); MONO% 10.9 % (1.7-9.3); MPV 11.6 FL (7.4-10.4); NEUT# 8.63 X1000 (1.4-6.5); NEUT% 82.6 % (42.2-75.2); PLT 64 X1000 (130-400); RBC 2.83 XMIL (4.2-5.4); RDW 15.8 % (11.5-14.5); WBC 10.44 X1000 (4.8-10.8)
[2018-10-27 06:37] LABS: ALBUMIN 2.6 g/dL (3.5-5.0); CALCIUM 7.1 mg/dL (8.8-10.2); CREATININE 2.6 mg/dL (0.5-0.9); PHOSPHORUS 3.7 mg/dL (2.7-4.5); POTASSIUM 2.4 mmol/L (3.5-5.1)
[2018-10-27] MEDS ORDERED: POTASSIUM CHLORIDE 40 MEQ/SWI 40 MEQ/100 ML IVPB IV ONE (06:45)
--- NOTE | 2018-10-27 08:05 | PROGRESS NOTE ---
DATE: 10/27/2018 SUBJECTIVE: This patient is awake, alert, and oriented x3. She is still complaining of pain. I will decrease the frequency of her [place] from every 8 hours to every 6 hours, and I will continue with morphine as needed. Vital signs are stable. She is hypokalemic, we are replacing the potassium. OBJECTIVE: Vital Signs: Temperature 98 degrees, pulse 104, respiratory rate on the monitor 13, blood pressure 109/68, oxygen saturation 100% on a Ventimask. HEENT: Head normocephalic. No trauma. PERRLA. Neck: Supple. No JVD. No masses. Central trachea. Chest: Crepitus at the bases. No wheezing. No rales. Abdomen: Soft. Diffuse tenderness to palpation which is generalized. Bowel sounds present. Extremities: No edema. Possible clubbing. No cyanosis. Decreased muscle mass. Neurological: This patient is completely alert and oriented. She is able to move all 4 extremities but she has generalized weakness. I had a conversation about her DNR status and this patient wants to be full code, Palliative Care already talked to the patient as well. LABORATORY: WBC 10.4, hemoglobin 7.5, hematocrit 24.5, platelets 64,000. Sodium 140, potassium 2.4, chloride 100, bicarbonate 27, BUN 11, creatinine 2.6. Glucose 81, calcium 7.1 phosphorus 3.7, magnesium 2. ASSESSMENT AND PLAN: 1. Metabolic encephalopathy. She seems to be doing better. She is alert, she is oriented. She does have generalized weakness. No focal deficits, likely a combination of end-stage renal disease and medication related. 2. End-stage renal disease with significant metabolic acidosis. Will continue with dialysis. The metabolic acidosis is better. 3. Hypokalemia. We will replace the potassium. 4. Hypomagnesemia, resolved. 5. Sepsis with no clear source of infection. WBC is normal today. She had an episode of low- grade fever a couple days ago. 6. Thrombocytopenia. For now we will monitor. It is a bit lower compared with yesterday. Hematology/Oncology on board. 7. Severe protein calorie malnutrition. We will continue with her diet. 8. History of chronic obstructive pulmonary disease. Aware, not in exacerbation. 9. History of urinary tract infection. Urine culture and blood cultures so far negative. Infectious Disease Department on board. 10. Metastatic carcinoid tumor. Aware. Hematology/Oncology already evaluated this patient. We will follow their recommendations. 11. Anxiety and depression. Aware. 12. Chronic pain with history of opiate dependence. Since this patient has cancer, I will continue with the same management and actually will increase a little bit the frequency of her [place] from every 8 hours to every 6 hours, and morphine as needed. cc: Vikas Flores MD
--- NOTE | 2018-10-27 14:14 | NEPHROLOGY PROGRESS NOTE ---
DATE: 10/27/2018 TIME SEEM: 0610. SUBJECTIVE: Ms. Bolivar is sitting up in bed. She states that she is hurting all over, would like to have more pain medication outside of what she is already getting per [place] per the primary care. OBJECTIVE: HER MOST RECENT VITAL SIGNS: Temperature is 98.1 degrees, blood pressure 88/65, heart rate 113, respirations are 15. She is on room air, last recorded saturation 93%. She has had 465 in, she has had 300 out to dialysis. LABORATORY DATA: Sodium is 140, potassium 2.4, chloride 100, CO2 27, BUN 11, creatinine 2.6, glucose 81, anion gap of 13, calcium 3.7, phosphorus 2, albumin 2.6, magnesium of 2. White count 10.44, hemoglobin 7.5, hematocrit 24.5 with a platelet count of 64,000. PHYSICAL EXAMINATION: General: This is a 48-year-old white female resting quietly in bed. She appears in moderate distress secondary to having pain. Otherwise, no acute distress. Skin: Warm and dry. HEENT: Normocephalic, atraumatic. Conjunctivae is pale pink. She has DEB. Mucous membranes are dry. Neck: Supple. Trachea midline. No JVD. Cardiovascular: She is regular rate and rhythm. She is tachycardic on the monitor. No appreciable murmur or gallop. Lungs: Clear to auscultation bilaterally, equal excursion on room air. Abdomen: Soft, nontender. Positive bowel sounds. Genitourinary: Not inspected. Minimal void with dialysis assist. Extremities: She has no edema. No clubbing or cyanosis. Neurological: She is awake to person and to place. She is at a loss for most recent events. ASSESSMENT AND PLAN: 1. Chronic kidney disease stage 5D. The patient tolerated dialysis yesterday. We actually left her in a positive fluid balance. No indications for intervention today. 2. Electrolytes. Her potassium is low. We have ordered a 1-time dose of IV potassium. We will re-evaluate her labs in the a.m. 3. Acidosis. The patient remains on sodium bicarbonate. Her CO2 is improved up to 27. If this remains stable, we will discontinue her sodium bicarbonate drip in the morning. 4. Anemia. This remains fairly stable. No indications for intervention. We will defer to the primary care team. Her hemoglobin is at 7.5. 5. Sepsis. Patient remains on renal dosed antibiotics. Currently on Merrem. 6. Metastatic carcinoid tumor. This has been followed by Dr. Miller. She has actually been seen by Dr. Ly Tena yesterday. I would to thank you for allowing us to follow with this patient. Dictated by LEE ANN Lopez for Dylan Chou MD Face to face encounter, data reviewed, discussed with Tre Diane on 10/28/18. I agree with the above assessment and plan of care. cc: LEE ANN Lopez MD [facility]
--- NOTE | 2018-10-27 15:53 | INFECTIOUS DISEASE PROGRESS NO ---
DATE: 10/27/2018 PRESENT ILLNESS: Ms. Bolivar has a leukocytosis, the origin of which could possibly be urinary tract infection. There is mixed gavi in her urine, and she has had double-J stents recently placed bilaterally. Blood cultures are negative. There may be an underlying pneumonia. She also has a progressive thrombocytopenia. MEDICATIONS: At this point, she is receiving meropenem 500 mg IV every 24 hours as a renally modified dose. PHYSICAL EXAMINATION: Vital Signs: Temperature is 97.3 degrees, pulse rate 106, respiratory rate 15, blood pressure 98/63. O2 saturation is 100% on room air. General: This is a cachectic, chronically ill-appearing, middle-aged female. She is lying in the bed currently in mild distress due to abdominal pain. HEENT: Atraumatic, normocephalic. Oral mucous membranes are pink and moist. Dentition is poor. Conjunctivae are pale. Neck: Supple. Trachea is midline. Cardiovascular: Heart rate and rhythm are regular and tachycardic. Sinus tach on the monitor. No edema is noted. Respiratory: Lung sounds have coarse rhonchi bilaterally. Abdomen: Mildly firm, flat and tender on palpation. Bowel sounds are active. Integumentary: There is a right chest dialysis catheter. The site is without edema, erythema or drainage. Neurologic: She is lethargic, but arousable and appropriate. Moving all extremities in the bed without difficulty. LABORATORY AND X-RAY: Today her white count is 10.44, hemoglobin 7.5, platelet count 64,000. Creatinine is 2.6. GFR 20. No imaging reports today. ASSESSMENT AND PLAN: Ms Bolivar has had a leukocytosis which seems to have cleared with the use of meropenem. There is a progressive thrombocytopenia noted; we are unsure the cause, but it is possible that meropenem is contributing to that, so we will discontinue at this time. We will give her Levaquin 250 mg by mouth every evening so as to not conflict with dialysis. We will also get a CT of her thorax without contrast this afternoon to see if there is anything in her lungs that was not appreciated on the chest x-ray. These plans have been discussed with and recommended by Dr. Junior. COMORBIDITIES: Comorbidities for Ms. Bolivar include metastatic carcinoid tumor with multiple organ involvement, end-stage renal disease with hemodialysis, chronic pain and opioid dependence, cigarette smoking and COPD, severe protein calorie malnutrition, recent double-J stent insertion bilaterally, and anxiety/depression. Dictated by LEE ANN Allen for Robby Junior MD This chart was documented by, LEE ANN Allen and accurately reflects the services performed, treatment plan and medical decisions as attested by the providers signature Robby Junior MD. cc: Robby Junior MD [facility]
[2018-10-27] MEDS: LEVAQUIN PO SCH (16:27)
[2018-10-27] MEDS: ATIVAN IV PRN (16:27)
--- NOTE | 2018-10-27 20:31 | Diag Imaging Result Doc PS360 ---
EXAM: CT THORAX W/O CONTRAST 10/27/2018 HISTORY: pneumonia TECHNIQUE: This exam was performed using automated exposure control, adjustment of mA or kV according to patient size, and/or use of iterative reconstruction technique. COMMENT: The current examination is compared with the previous study of 11/21/2015 and the abdominal study of 10/04/2018. There has been considerable loss of body fat since the previous study. There is ascites. No pleural fluid collections are present. There is a right internal jugular central venous catheter with its tip just above the right atrium. There are calcifications in the left anterior descending and circumflex coronary arteries. There is supraclavicular adenopathy and apparent left axillary adenopathy. There are multiple subpleural blebs in both upper lobes there is apical pleural thickening. These findings were present previously. There is groundglass opacity in the anterior left upper lobe which was not present previously. There are some patchy and nodular opacities posteriorly in the right upper lobe. There is patchy alveolar opacity present in the lower lobes particularly the right lower lobe. There are multiple pleural-based nodules present in both lower lobes and the right middle lobe some of which were present at the time the previous study. They are somewhat larger and more numerous however than on the previous study of 2015, however compared to 10/04/2018 there has been no appreciable change. IMPRESSION: Patchy pneumonia bilaterally. Ascites. Chronic neoplastic changes. Electronically signed by Filemon Robert 10/27/2018 8:29 PM
[2018-10-28] MEDS: XOPENEX NEB INH SCH ×6 (03:27→23:14)
[2018-10-28] MEDS ORDERED: NS 250 ML IV ONE ×2 (04:21→09:11)
[2018-10-28] MEDS: PROTONIX IV SCH ×2 (05:45→20:40)
[2018-10-28] MEDS ORDERED: HEPARIN IV PRN (05:53)
[2018-10-28] MEDS ORDERED: NS 2,000 ML MISC PRN (05:53)
[2018-10-28] MEDS ORDERED: TIGHT: 0.2 ML/HR FOR DIALYSIS MISC PRN (05:53)
[2018-10-28 06:54] LABS: BASO# 0.01 X1000 (0.0-0.2); BASO% 0.1 % (0.0-0.8); EOS# 0.08 X1000 (0.0-0.7); EOS% 0.7 % (0.0-10.0); HEMOGLOBIN 7.6 g/dL (12.0-16.0); IMM GRAN# 0.05 X1000 (0.0-0.04); IMM GRAN% 0.5 % (0.0-0.5); LYMPH# 0.75 X1000 (1.2-3.4); LYMPH% 6.9 % (20.5-51.1); MCH 26.9 PG (27-31); MCHC 30.4 g/dL (33-37); MCV 88.3 FL (81-99); MONO% 8.3 % (1.7-9.3); MPV 12.3 FL (7.4-10.4); NEUT# 9.04 X1000 (1.4-6.5); NEUT% 83.5 % (42.2-75.2); PLT 65 X1000 (130-400); RBC 2.83 XMIL (4.2-5.4); RDW 15.9 % (11.5-14.5); WBC 10.83 X1000 (4.8-10.8)
[2018-10-28 07:31] LABS: ALBUMIN 2.4 g/dL (3.5-5.0); CALCIUM 7.3 mg/dL (8.8-10.2); MAGNESIUM 1.9 mg/dL (1.5-2.7); PHOSPHORUS 3.5 mg/dL (2.7-4.5); POTASSIUM 3.2 mmol/L (3.5-5.1)
[2018-10-28] MEDS: MORPHINE IV PRN ×3 (09:27→20:40)
[2018-10-28] MEDS ORDERED: MORPHINE IV ONE (09:38)
[2018-10-28] MEDS: NORCO-10 PO PRN ×2 (16:05→23:58)
--- NOTE | 2018-10-28 16:29 | PROGRESS NOTE ---
DATE: 10/28/2018 SUBJECTIVE: This patient has been complaining of severe pain. I evaluated this patient multiple times during the day. Her blood pressure has been sometimes in the 80s and 90s, and we have been cautious about using narcotics on this patient, but this patient has been requesting a lot of pain treatment throughout the day. She has chronic pain and this is likely secondary to metastatic carcinoid tumor, and as per the patient, the pain is getting worse. I talked to her again about her resuscitation status. I told her that if her heart stops beating or she stops breathing, her prognosis will be even worse and if we get some pulse back or if she is breathing again by herself, her condition will no change, but probably will get worse. She states that she does not want to live or stay that way. She wants to control her pain and be more comfortable. We discussed in length her DNR status and at the end, she decided to be DNR. Also, she asked me to call a friend, Cherelle at [phone]. Her real name is Pippa Law. She is a friend and she lives with this patient and basically she is taking care of her. She explained to me that she used to take her to dialysis and also to her doctor's appointment, but she is not able to do it anymore because now she does not have transportation. Then I asked Mrs. Pippa Law about this patient's daughter and son, and she gave me her daughter's phone number, so I called [phone]. Nobody answered the phone and the mailbox was full and not accepting new messages. I discussed the case with Oncology department, Dr. Miller, who recommended at this point, hospice for this patient. The case has been discussed also with corrections caseworker. OBJECTIVE: Vital Signs: Temperature 98.6 degrees, pulse 111, respiratory rate 20, blood pressure 103/64, oxygen saturation 100% on room air. HEENT: Head normocephalic. No trauma. PERRLA. Neck: Supple. No JVD. No masses. Central trachea. Chest: Crepitus at the bases. No wheezing. No rales. Abdomen: Soft. Diffuse tenderness to palpation which is generalized mostly at the level of the periumbilical area, some distention. Bowel sounds present. Extremities: No edema, no clubbing, no cyanosis. Decreased muscle mass. Neurological: This patient is alert. She is oriented. She is able to move all 4 extremities, but she is complaining of generalized weakness and severe pain in the abdomen. LABORATORY DATA: WBC 10.8, hemoglobin 7.6, hematocrit 25, platelets 65,000. Sodium 139, potassium 3.2, chloride 102, bicarbonate 23, BUN 22, creatinine 4, glucose 94, calcium 7.3, magnesium 1.9, phosphorus 3.5. ASSESSMENT AND PLAN: 1. Metabolic encephalopathy, resolved, likely secondary to the infectious process and narcotic use. Also she has end-stage renal disease. This seems to be doing better. We will continue to monitor. 2. End-stage renal disease with significant metabolic acidosis, better. Continue with dialysis as scheduled. 3. Hypokalemia, better compared with the previous days. 4. Hypomagnesemia, resolved. 5. Sepsis. It looks like we had a new CT scan that showed patchy pneumonia bilaterally, Infectious Disease Department on board. We will continue following their recommendations. 6. Thrombocytopenia. For now, will monitor. Platelet count around the same compared with yesterday. 7. Severe protein calorie malnutrition. We will continue with her diet. 8. History of chronic obstructive pulmonary disease, aware, not in exacerbation. 9. History of urinary tract infection. Urine culture and blood cultures so far negative. 10. Metastatic carcinoid tumor, aware. I have increased the dose of the pain medication per patient's request. Hematology/Oncology already evaluated this patient and they have recommended hospice for this patient. 11. Anxiety and depression, aware. 12. Chronic pain with history of opiate dependence. The patient has cancer and now she is DNR. I will honor her wishes to keep this patient more comfortable. 13. This patient is DNR level 1. cc: Vikas Flores MD
--- NOTE | 2018-10-28 17:45 | INFECTIOUS DISEASE PROGRESS NO ---
DATE: 10/28/2018 PRESENT ILLNESS: The patient is being treated now for a bilateral pneumonia. She also has a mixed gavi in her urine, which could be causing an infection also. MEDICATIONS: The patient is on Levaquin 250 mg p.o. daily. PHYSICAL EXAMINATION: Vital Signs: Temperature is 98.6 degrees, pulse 111, respirations 20, blood pressure 103/64. General: This is a cachectic, chronically ill-appearing, malnourished middle-aged female. She is lying in bed and having chills. Head/Eyes/Ears/Nose/Throat: She can hear my spoken words and see near objects. She has poor dental hygiene. Neck: No pain with movement. Lungs: Clear to auscultation. Cardiovascular: Heart rate is regular. Abdomen: The abdomen is flat, but it was not tender. Thorax: The patient has a tunneled dialysis catheter present on the right side. The site is not swollen or draining. Neurologic: The patient is lethargic, and she is having chills as mentioned above. LAB AND X-RAY: CBC today shows a white count of 10,830, hemoglobin 7.6, and platelet count 65,000. Creatinine is 4. GFR is 12. Blood cultures are negative. Urine cultures are mixed. CT scan shows bilateral patchy pneumonia. It also shows larger and increased metastatic carcinoid nodules in her lungs. ASSESSMENT AND PLAN: The patient I think has pneumonia and I am going to continue treating her with Levaquin. When she was on meropenem earlier, it dropped her platelet counts, now her platelets are not dropping any further. COMORBIDITIES: She has metastatic carcinoid tumor with multiple organ involvement. The patient has end-stage renal disease, and she is on hemodialysis. She has chronic pain and opioid dependence. She smokes cigarettes, and she has COPD. She also has severe protein-calorie malnutrition. She has stents inserted bilaterally in the ureters. The patient also has anxiety and depression. cc: Robby Junior MD
--- NOTE | 2018-10-28 17:56 | NEPHROLOGY PROGRESS NOTE ---
DATE: 10/28/2018 SUBJECTIVE: She still complains of pain, but she is sitting up in the bed today. She states she is hungry and ready to eat. No vomiting, no shortness of breath. OBJECTIVE: Vital Signs: Blood pressure 103/64, heart rate 111, respirations 20, afebrile. Generally: No acute distress. Skin: Warm and dry. Neck: Neck veins are not distended. Heart: Regular. No gallops. Lungs: Equal. No crackles or wheezes. Abdomen: Soft, nontender. Bowel sounds present. Extremities: No edema, clubbing or cyanosis. IMPRESSION: Chronic kidney disease 5B, presumed. Kidney biopsy with acute tubular necrosis but she has had no recovery. Hemodialysis today using a 4 potassium bath, and we will keep her fluid balance even. Otherwise, no changes. cc: Dylan Chou MD
[2018-10-28] MEDS: ATIVAN IV PRN (19:00)
[2018-10-28] MEDS: SODIUM CHLORIDE 0.9% INJ SCH (20:40)
[2018-10-28] MEDS: LEVAQUIN PO SCH (20:40)
[2018-10-29] MEDS: MORPHINE IV PRN ×5 (01:57→20:40)
[2018-10-29] MEDS: XOPENEX NEB INH SCH ×6 (03:14→23:00)
[2018-10-29 07:35] LABS: BASO# 0.01 X1000 (0.0-0.2); BASO% 0.1 % (0.0-0.8); EOS# 0.13 X1000 (0.0-0.7); EOS% 1.2 % (0.0-10.0); HEMATOCRIT 26.2 % (37.0-47.0); HEMOGLOBIN 7.6 g/dL (12.0-16.0); IMM GRAN# 0.04 X1000 (0.0-0.04); IMM GRAN% 0.4 % (0.0-0.5); LYMPH# 0.57 X1000 (1.2-3.4); LYMPH% 5.1 % (20.5-51.1); MCV 89.7 FL (81-99); MONO% 10.7 % (1.7-9.3); MPV 12.7 FL (7.4-10.4); NEUT# 9.24 X1000 (1.4-6.5); NEUT% 82.5 % (42.2-75.2); PLT 83 X1000 (130-400); RBC 2.92 XMIL (4.2-5.4); RDW 15.8 % (11.5-14.5); WBC 11.19 X1000 (4.8-10.8)
[2018-10-29] MEDS: PROTONIX IV SCH ×2 (07:45→20:38)
[2018-10-29] MEDS: NORCO-10 PO PRN ×2 (07:45→17:31)
[2018-10-29] MEDS: SODIUM CHLORIDE 0.9% INJ SCH ×2 (07:45→20:38)
[2018-10-29] MEDS: ATIVAN IV PRN ×3 (07:50→15:56)
[2018-10-29 08:17] LABS: ALBUMIN 2.5 g/dL (3.5-5.0); CREATININE 2.4 mg/dL (0.5-0.9); MAGNESIUM 1.7 mg/dL (1.5-2.7); PHOSPHORUS 2.6 mg/dL (2.7-4.5); POTASSIUM 3.6 mmol/L (3.5-5.1)
[2018-10-29] MEDS: LYRICA PO SCH ×2 (09:41→20:39)
--- NOTE | 2018-10-29 14:03 | PROGRESS NOTE ---
DATE: 10/29/2018 SUBJECTIVE: Her pain is better controlled, but she is still complaining of pain. I will increase the frequency of the [place] from every 6 hours to every 4 hours, and I will continue with the rest of the pain treatment. Hematology/Oncology already evaluated this patient, and they basically recommended hospice. manager hvac and social work faculty member were working on that. OBJECTIVE: Vital Signs: Temperature 97.8 degrees, pulse 120, respiratory rate 20, blood pressure 93/62, oxygen saturation 100% on room air. HEENT: Head normocephalic, no trauma. PERRLA. Poor dentition. Neck: Supple. No JVD. No masses. Central trachea. Chest: Crepitus at the bases. No wheezing. No rales. Abdomen: Soft. Diffuse tenderness to palpation which is generalized, but mostly at the level of the periumbilical area. Mild to moderate distention. Positive bowel sounds. Extremities: No edema, no clubbing, no cyanosis. Decreased muscle mass. Neurological examination: This patient is alert. She is oriented. She moves all 4 extremities. Her answers are slow. She is still complaining of generalized weakness and severe pain in the abdomen. LABORATORY: WBC 11.1, hemoglobin 7.6, hematocrit 26.2, platelets 83. Sodium 140, potassium 3.6, chloride 101, bicarbonate 25. BUN 10, creatinine 0.8, creatinine 2.4, glucose 102, calcium 8, phosphorus 2.6, magnesium 1.7. ASSESSMENT AND PLAN: 1. Metabolic encephalopathy, resolved, likely secondary to the infectious process and narcotic use. She has end-stage renal disease. The encephalopathy basically resolved. Continue to monitor. 2. End-stage renal disease with significant metabolic acidosis, better. Continue with dialysis. 3. Hypokalemia, resolved. 4. Hypomagnesemia, resolved. 5. Sepsis. It looks like she had a new CT scan that showed patchy pneumonia bilaterally. Infectious Disease Department on board. Continue with antibiotics. 6. Thrombocytopenia. For now, we will monitor. Platelet count is going up. 7. Severe protein calorie malnutrition. Continue with her diet. 8. Bilateral patchy infiltrate/pneumonia. Continue with antibiotics. 9. History of chronic obstructive pulmonary disease, not in exacerbation. 10. History of urinary tract infection. Urine culture and blood culture so far negative. 11. Metastatic carcinoid tumor, aware. I have increased the frequency of the pain medication per patient's request. Hematology/Oncology already evaluated this patient, and they have suggested hospice. 12. Anxiety and depression. Aware. 13. Chronic pain with history of opiate dependence. This patient has cancer and for now she is do not resuscitate level 1, so I will continue honoring her wishes to keep the patient more comfortable. 14. This patient is do not resuscitate level 1. cc: Vikas Flores MD
[2018-10-29] MEDS: LEVAQUIN PO SCH (17:29)
[2018-10-30] MEDS: MORPHINE IV PRN ×3 (00:36→08:38)
[2018-10-30] MEDS: NORCO-10 PO PRN ×4 (03:16→18:56)
[2018-10-30] MEDS: XOPENEX NEB INH SCH ×6 (03:19→23:19)
[2018-10-30] MEDS: PROTONIX PO SCH (06:14)
[2018-10-30] MEDS: LYRICA PO SCH ×2 (08:38→21:55)
--- NOTE | 2018-10-30 11:44 | PROGRESS NOTE ---
DATE: 10/30/2018 SUBJECTIVE: This patient is still complaining of abdominal pain. I have switched the morphine for Dilaudid. Otherwise, I will continue with the same management. The plan is to discharge this patient with hospice care. building service worker and nurse case manager on board. Once we have placement, we will discharge the patient. OBJECTIVE: Vital Signs: Temperature 98.1 degrees, pulse 92, respiratory rate 16, blood pressure 106/74, oxygen saturation 97% on room air. HEENT: Head normocephalic. No trauma. PERRLA. Poor dentition. Neck: Supple. No JVD. No masses. Central trachea. Chest: Crepitus at the bases. No wheezing. No rales. Abdomen: Soft. Diffuse tenderness to palpation which is generalized, mostly at the level of the periumbilical area. Moderate distention. Positive bowel sounds. Extremities: No edema, no clubbing, no cyanosis. Decreased muscle mass. Neurological Examination: The patient is alert. She is oriented. She moves all 4 extremities. She is answering my questions today. Laboratory: Magnesium 1.7. ASSESSMENT AND PLAN: 1. Metabolic encephalopathy, resolved, likely secondary to the infectious process and narcotic use. She also has end-stage renal disease. 2. End-stage renal disease. Continue with dialysis as scheduled. 3. Metabolic acidosis, better. 4. Hyperkalemia, resolved. 5. Hypomagnesemia, resolved. 6. Sepsis. She has bilateral patchy pneumonia. Infectious disease on board. Continue with antibiotics. 7. Thrombocytopenia. For now, we will monitor. It is low but seems to be stable. 8. History of chronic obstructive pulmonary disease, not in exacerbation. 9. History of urinary tract infection. Urine culture and blood cultures so far negative. 10. Severe protein calorie malnutrition. Continue with her diet. 11. Metastatic carcinoid tumor, aware. I have switched the pain treatment from morphine to Dilaudid. Hematology/oncology already evaluated this patient and they have decided and/or suggested hospice. 12. Anxiety and depression. Aware. 13. Chronic pain with a history of opiate dependence. Since this patient is having cancer and now she will be in hospice, I will continue with the pain treatment. 14. This patient is Do Not Resuscitate level 1. cc: Vikas Flores MD
[2018-10-30] MEDS: DILAUDID IV PRN ×3 (12:12→21:54)
[2018-10-30] MEDS: NICODERM PATCH TD SCH (12:14)
[2018-10-30] MEDS: ATIVAN IV PRN ×2 (14:16→18:56)
[2018-10-30] MEDS: LEVAQUIN PO SCH (16:30)
[2018-10-31] MEDS: ATIVAN IV PRN ×2 (03:05→09:46)
[2018-10-31] MEDS: DILAUDID IV PRN ×2 (03:05→06:34)
[2018-10-31] MEDS: NORCO-10 PO PRN (03:10)
[2018-10-31] MEDS: XOPENEX NEB INH SCH ×3 (04:46→12:04)
[2018-10-31] MEDS: PROTONIX PO SCH (06:11)
[2018-10-31 07:35] LABS: BASO# 0.02 X1000 (0.0-0.2); BASO% 0.2 % (0.0-0.8); EOS# 0.15 X1000 (0.0-0.7); EOS% 1.3 % (0.0-10.0); HEMATOCRIT 26.1 % (37.0-47.0); HEMOGLOBIN 7.6 g/dL (12.0-16.0); IMM GRAN# 0.07 X1000 (0.0-0.04); IMM GRAN% 0.6 % (0.0-0.5); LYMPH# 0.42 X1000 (1.2-3.4); LYMPH% 3.5 % (20.5-51.1); MCH 26.3 PG (27-31); MCHC 29.1 g/dL (33-37); MCV 90.3 FL (81-99); MONO# 0.82 X1000 (0.11-0.59); MONO% 6.9 % (1.7-9.3); MPV 12.4 FL (7.4-10.4); NEUT% 87.5 % (42.2-75.2); PLT 104 X1000 (130-400); RBC 2.89 XMIL (4.2-5.4); RDW 15.1 % (11.5-14.5); WBC 11.88 X1000 (4.8-10.8)
[2018-10-31] MEDS ORDERED: HEPARIN IV PRN (07:43)
[2018-10-31] MEDS ORDERED: NS 2,000 ML MISC PRN (07:43)
[2018-10-31] MEDS ORDERED: TIGHT: 0.2 ML/HR FOR DIALYSIS MISC PRN (07:43)
[2018-10-31 07:47] LABS: ALB/GLOB RATIO 0.9; ALBUMIN 2.6 g/dL (3.5-5.0); CALCIUM 7.9 mg/dL (8.8-10.2); CREATININE 5.2 mg/dL (0.5-0.9); POTASSIUM 3.1 mmol/L (3.5-5.1); TOTAL BILIRUBIN 0.16 mg/dL (0.20-1.00); TOTAL PROTEIN 5.6 g/dL (6.3-8.3)
--- NOTE | 2018-10-31 08:24 | PROGRESS NOTE ---
DATE: 10/31/2018 SUBJECTIVE: This patient is still complaining of abdominal pain but she has not been taking the p.o. treatment for pain. She has been only requesting the IV treatment. I explained to her in detail yesterday and today that she needs to ask for the p.o. treatment. I will go ahead and put a q.4 hours schedule instead of p.r.n. since she has been always complaining of pain and she has a metastatic cancer. OBJECTIVE: Vital Signs: Temperature 97.6 degrees, pulse 115, respiratory rate 14, blood pressure 96/57, oxygen saturation 98 on room air. HEENT: Head normocephalic. No trauma. PERRLA. Poor dentition. Neck: Supple. No JVD. Central trachea. Chest: Crepitus at the bases. No wheezing. No rales. Abdomen: Soft. Diffuse tenderness to palpation which is generalized mostly at the level of the periumbilical area. Moderate distention. Positive bowel sounds. Extremities: No edema. No clubbing. No cyanosis. Decreased muscle mass. Neurological Examination: The patient is alert. She is oriented. She moves all 4 extremities. She is answering my questions today. Laboratory: WBC 11.8, hemoglobin 7.6, hematocrit 26.1, platelets 104,000. Sodium 138, potassium 3.1, chloride 101, bicarbonate 22, BUN 28, creatinine 5.2, glucose 100, calcium 7.9, albumin 2.6. ASSESSMENT AND PLAN: 1. Metabolic encephalopathy, resolved, likely secondary to the infectious process and narcotic use. She also has end-stage renal disease. 2. End-stage renal disease. Continue with dialysis as scheduled. 3. Metabolic acidosis, better. 4. Hypokalemia. This patient has end-stage renal disease. For now, we will monitor. 5. Hypomagnesemia, resolved. 6. Sepsis. She has bilateral patchy pneumonia. Infectious disease on board. Continue with antibiotics. 7. Thrombocytopenia. This is getting better. 8. History of chronic obstructive pulmonary disease, not in exacerbation. 9. History of urinary tract infection. Blood culture and urine cultures so far negative. 10. Severe protein calorie malnutrition. Continue with her diet. 11. Metastatic carcinoid tumor, aware. We will continue with the same management. I will put [place] 10 scheduled. This patient basically has been only asking for Dilaudid. Since this patient is having cancer and now she will be in hospice, we will continue with pain treatment. 12. Anxiety and depression, aware. 13. Chronic pain with a history of opiate dependence, aware. 14. This patient is Do Not Resuscitate level 1 and we are looking for placement with hospice. cc: Vikas Flores MD
[2018-10-31] MEDS: NORCO-10 PO SCH ×2 (09:22→13:53)
[2018-10-31] MEDS: NICODERM PATCH TD SCH (09:45)
[2018-10-31] MEDS: LYRICA PO SCH (09:46)
[2018-10-31 09:50] LABS: ALBUMIN 2.2 g/dL (3.5-5.0); PHOSPHORUS 5.5 mg/dL (2.7-4.5); POTASSIUM 3.3 mmol/L (3.5-5.1)
--- NOTE | 2018-10-31 11:09 | NEPHROLOGY PROGRESS NOTE ---
DATE: 10/31/2018 SUBJECTIVE: Patient complaining of pain. She has had 2 episodes of diarrhea, incontinent. OBJECTIVE: Vital Signs: Temperature 97.6 degrees, pulse 111, respiratory rate 14, blood pressure 96/57. Intake and output: Intake 360 mL. Output not measured. PHYSICAL EXAMINATION: General: This is a chronically ill-appearing, thin, malnourished, wasted female, lying in bed. No acute distress. HEENT: Normocephalic, atraumatic. Pupils equal, round, and reactive. Oral mucosa dry. Neck: Supple. Trachea midline. Cardiovascular: Regular rate and rhythm. No murmur or gallop. Pulmonary: She has got coarse crepitus throughout all lung rendon. Abdomen: Soft. Positive bowel sounds. Genitourinary: Viramontes catheter. Extremities: No edema, clubbing, or cyanosis. Integumentary: Skin is warm and dry. LABORATORY DATA: WBC of 11.8, hemoglobin 7.6. Sodium 138, potassium 3, CO2 of 22, creatinine 5.2. ASSESSMENT AND PLAN: 1. Chronic kidney disease, stage 5. Previous acute kidney injury without recovery. We initiated dialysis. The patient over the weekend has changed her status so that she is now a Do Not Resuscitate Level 1, and she has been admitted into hospice care. At this point, we will discontinue her dialysis treatment secondary to the hospice plan. Further orders to follow if change in patient's status. 2. Electrolytes, acid-base balance, anemia. She does have some mild hypokalemia today. It is noted that she had diarrhea last night. Monitor. Add supplement as needed. 3. Anemia, stable. 4. Metastatic carcinoid tumor. The patient is being placed on scheduled pain control. Patient again has been made a Do Not Resuscitate Level 1, and they are working on hospice placement at this time. Dictated by LEE ANN Schumacher for Dylan Chou MD cc: Dylan Chou MD [facility]
[2018-10-31 11:36] VITALS: BP 103/59
[2018-10-31] MEDS ORDERED: DILAUDID IV PRN (13:12)
--- NOTE | 2018-11-04 19:05 | DISCHARGE SUMMARY ---
ADMISSION DATE: 10/24/2018 DISCHARGE DATE: 10/31/2018 DISCHARGE DIAGNOSES: 1. Metabolic encephalopathy. 2. End-stage renal disease. 3. Metabolic acidosis. 4. Hypokalemia. 5. Hypomagnesemia. 6. Sepsis. 7. Bilateral patchy pneumonia. 8. Thrombocytopenia. 9. History of chronic obstructive pulmonary disease. 10. History of urinary tract infection. 11. Severe protein calorie malnutrition. 12. Metastatic carcinoid tumor. 13. Anxiety and depression. 14. Chronic pain and history of opiate dependence. 15. This patient is DNR level 1. HOSPITAL COURSE: Patient admitted on 10/24/2018, she is 48-year-old female with past medical history of metastatic carcinoid tumor, end-stage renal disease on hemodialysis, who presented with mental status changes, lethargic, not eating or drinking, dehydrated. She was admitted to [facility]. She receive IV fluids, pain management, dialysis and antibiotics due to her pneumonia. ASSESSMENT/PLAN: After having some conversations with the patient and given to the fact that this patient has been having severe pain, which was basically not controlled, she has decided to change her resuscitation status to DNR level 1 and then be admitted with hospice for comfort measures only. She will be then admitted to inpatient hospice, palliative care team, social research assistant and medical case manager wholesale agronomist on board. wade will try to control her pain, hematology/oncology recommended hospice as well. cc: Vikas Flores MD
== END 2018-10-31 15:02 | disposition hospice, inpatient (51) | DRG 871 ==
LOC: SUPCPDRO → ED 10:00 → ICU 17:19 → 3N 10-27 09:27
PROVIDERS: ATTEND Internal Medicine
CPT/HCPCS: 71010; 71045; 71250; 80053; 80069; 80196; 80307; 80324; 80329; 81001; 82003; 82009; 82805; 82948; 83735; 83880; 84100; 84484; 85025; 87040; 87088; 93005; 94640; 94761; 96365; 97110; 97162; 97530; 99285; A9270; C1725; C9113; G0480; G6038; G6039; J0696; J1170; J2060; J2185; J2270; J3370; J3475; J3480; J7030; J7040; J7070; S0164; XXXXX

== ENCOUNTER 2018-11-11 16:16 | Observation (INO) ==
[2018-11-11] MEDS ORDERED: NARCAN IV PRN (16:35)
[2018-11-11] MEDS: LR 1,000 ML IV SCH (18:57)
[2018-11-11] MEDS: LYRICA PO SCH (22:22)
[2018-11-12] MEDS: ATIVAN IV PRN ×4 (00:21→21:44)
[2018-11-12] MEDS: DILAUDID PCA VIAL IV PRN (08:32)
[2018-11-12] MEDS: NICODERM PATCH TD SCH (09:22)
[2018-11-12] MEDS: LYRICA PO SCH ×2 (09:22→21:43)
[2018-11-12] MEDS: LR 1,000 ML IV SCH ×2 (15:20→15:41)
--- NOTE | 2018-11-12 21:08 | PROGRESS NOTE ---
DATE: 11/12/2018 SUBJECTIVE: The patient is somewhat sleepy today. Otherwise, she denies having any pain. OBJECTIVE: Vital Signs: Temperature 98.4, blood pressure 91/71, heart rate 100, respirations 16, O2 saturation 99% on room air. General: This is a chronically ill-appearing, elderly female, lying in bed in no acute distress. Heart: S1, S2 normal. Tachycardic. Lungs: Equal air entry bilaterally. No crackles. No rales. Abdomen: Positive bowel sounds. Soft, nontender, nondistended. Extremities: No edema. No cyanosis. Neurologic: The patient is lethargic. ASSESSMENT AND PLAN: 1. Metastatic carcinoid tumor. 2. Severe protein calorie malnutrition. 3. End-stage renal disease. 4. Syncope. PLAN: Continue with Dilaudid [employer] pump as ordered. cc: Izzy Patel MD
[2018-11-13] MEDS: NICODERM PATCH TD SCH (11:23)
[2018-11-13] MEDS: LYRICA PO SCH ×2 (11:24→20:26)
--- NOTE | 2018-11-13 13:44 | PROGRESS NOTE ---
DATE: 11/13/2018 SUBJECTIVE: The patient is sitting up attempting to eat breakfast, she appears to be dozing off. She does complain of pain occasionally. OBJECTIVE: Vital Signs: Temperature 98.3 degrees, blood pressure 116/69, heart rate 105, respirations 16, O2 saturations 100% on room air. General: This is a cachectic female sitting up in bed in no acute distress. Heart: S1, S2 normal. Tachycardic. Lungs: Equal air entry bilaterally. Abdomen: Positive bowel sounds. Soft, nontender, nondistended. Extremities: No edema, no cyanosis. Neurologic: The patient is lethargic but able to move all 4 extremities and answer questions. ASSESSMENT: 1. Metastatic carcinoid tumor. 2. End-stage renal disease. 3. Severe protein calorie malnutrition. PLAN: Continue with comfort measures. cc: Izzy Patel MD
[2018-11-13] MEDS: ATIVAN IV PRN (20:26)
[2018-11-14] MEDS: DILAUDID PCA VIAL IV PRN (10:20)
[2018-11-14] MEDS: NICODERM PATCH TD SCH (10:33)
[2018-11-14] MEDS: LYRICA PO SCH ×2 (10:34→20:32)
[2018-11-14] MEDS: LR 1,000 ML IV SCH ×2 (13:24→16:24)
--- NOTE | 2018-11-14 15:15 | PROGRESS NOTE ---
DATE: 11/14/2018 SUBJECTIVE: The patient is sitting up in bed. She states that she is hurting today. OBJECTIVE: Vital Signs: Temperature 97.3 degrees, blood pressure 105/69, heart rate 114, respirations 16, O2 saturation is 100% on room air. General: This is an elderly female sitting up in bed in no acute distress. Heart: S1, S2 normal. Regular rate and rhythm. Lungs: Equal air entry bilaterally. No crackles. No rales. Abdomen: Positive bowel sounds. Soft, nontender, nondistended. Extremities: No edema, no cyanosis. Neurologic: The patient is alert and oriented. LABORATORY DATA: None. ASSESSMENT: 1. Metastatic carcinoid tumor. 2. End-stage renal disease. 3. Severe protein calorie malnutrition. PLAN: Continue with comfort measures. cc: Izzy Patel MD
[2018-11-14] MEDS: ATIVAN IV PRN (20:32)
[2018-11-15] MEDS: LR 1,000 ML IV SCH ×2 (01:28→19:16)
[2018-11-15] MEDS: ATIVAN IV PRN ×3 (06:49→20:24)
[2018-11-15] MEDS: LYRICA PO SCH ×2 (09:07→20:24)
[2018-11-15] MEDS: NICODERM PATCH TD SCH (09:07)
[2018-11-15] MEDS: DILAUDID PCA VIAL IV PRN (16:58)
--- NOTE | 2018-11-15 17:33 | PROGRESS NOTE ---
DATE: 11/15/2018 SUBJECTIVE: Patient resting in bed not in any obvious distress. OBJECTIVE: Vital signs: Temperature 98.1 degrees, pulse 99, respiration 18, O2 saturation 95%. HEENT: She is atraumatic, normocephalic. Cardiovascular: S1, S2. Respiratory: Has rhonchi noted in both lung rendon. Abdomen: Soft, nontender, no masses felt. Extremities: Has 2+ edema in the lower extremities. Central nervous system: No obvious focal deficits noted. LABS: None. ASSESSMENT: 1. Metastatic carcinoid tumor. 2. End-stage renal disease. 3. Severe protein calorie malnutrition, PLAN Continue comfort measures only. cc: Andrew Chow MD [facility]
[2018-11-16] MEDS: LR 1,000 ML IV SCH ×2 (03:47→18:45)
[2018-11-16] MEDS: ATIVAN IV PRN (04:22)
[2018-11-16] MEDS: LYRICA PO SCH ×2 (09:31→20:09)
[2018-11-16] MEDS: NICODERM PATCH TD SCH (09:31)
[2018-11-16] MEDS ORDERED: LOMOTIL PO ONE (10:44)
--- NOTE | 2018-11-16 14:00 | HISTORY AND PHYSICAL ---
Please refer to the H and P that was scanned into the chart on 11/16/2018. cc: Izzy Patel MD
--- NOTE | 2018-11-16 15:05 | PROGRESS NOTE ---
DATE: 11/16/2018 SUBJECTIVE: Patient resting in bed. OBJECTIVE: Vital signs: Temperature 97.6 degrees,respiratory rate is 7, blood pressure 132/87, oxygen saturation 100%. HEENT: Patient is atraumatic, normocephalic. Cardiovascular System: S1, S2. Respiratory System: Rhonchi noted in the lung rendon. Abdomen: Soft, nontender. No masses felt. Extremities: Edema in lower extremities. Central nervous system: No obvious focal deficit noted. LABORATORIES: None ASSESSMENT: 1. Metastatic carcinoid tumor. 2. End-stage renal disease. 3. Severe protein-calorie malnutrition. PLAN: Continue comfort measures only. cc: Andrew Chow MD [facility]
[2018-11-16] MEDS: ATROPINE 1 % OPHTH SOLN SL PRN (19:48)
[2018-11-17] MEDS: DILAUDID PCA VIAL IV PRN (00:30)
[2018-11-17] MEDS: ATROPINE 1 % OPHTH SOLN SL PRN (01:12)
[2018-11-17 04:05] VITALS: BP 108/68
--- NOTE | 2018-12-02 19:54 | DISCHARGE SUMMARY ---
ADMISSION DATE: 11/11/2018 DISCHARGE DATE: 11/17/2018 SUMMARY DISCHARGE DIAGNOSES: 1. Metastatic carcinoid syndrome. 2. End-stage renal disease. 3. Metabolic encephalopathy. 4. Metabolic acidosis. 5. Hypokalemia. 6. Hypomagnesemia. 7. Sepsis. 8. Bilateral patchy pneumonia. 9. Thrombocytopenia. 10. History of chronic obstructive pulmonary disease. 11. Urinary tract infection history. 12. Severe protein calorie malnutrition. 13. Anxiety with depression. 14. Chronic pain with a history of opiate dependence. HOSPITAL COURSE: Patient was admitted on 10/24/2018. She has a history of metastatic carcinoid syndrome and end-stage renal disease. She was admitted to the hospital because of mental status changes, lethargy, not eating, not drinking, as well as dehydrated. She did receive intravenous fluids. Pain management, dialysis and antibiotics due to her pneumonia. During the course of the hospital stay, the patient decided to be DNR. She was subsequently admitted with hospice for comfort measures. The patient remained on the hospice care for a prolonged period of time. The patient was noted to have a decline and so she was discharged from inpatient hospice and was subsequently admitted to the hospitalist service for comfort measures. The patient subsequently on 11/17/2018. cc: Andrew Chow MD
== END 2018-11-17 07:23 | disposition expired ==
LOC: SUATTDRO 16:16 → INTOOBSV 16:16 → 3N 16:16
PROVIDERS: ATTEND Internal Medicine
CPT/HCPCS: 94761; 96374; 96376; A9270; G0378; J1170; J2060; J7120